=== PATIENT | male | born 1935 | race Caucasian/White ===

== ENCOUNTER 2020-11-06 17:31 | Inpatient (IN) | payer MEDICARE, BC ==
[2020-11-06] MEDS ORDERED: HEPARIN SODIUM,PORCINE 5,000 UNIT/ML 1 ML VIAL IV PRN (17:32)
[2020-11-06] MEDS ORDERED: HEPARIN SOD,PORK IN 0.45% NACL 25,000 UNIT in 0.45% NACL 1 250ML.BAG IV SCH (17:45)
--- NOTE | 2020-11-06 17:56 | ED ---
Chest Pain HPI - General Chief Complaint: Chest Pain Stated Complaint: chest pain Time Seen by Provider: 11/06/20 17:35 Source: patient, EMS, RN notes reviewed Mode of arrival: EMS Limitations: no limitations - History of Present Illness Initial Comments: Patient is an 85-year-old male with past history of CAD, prostate cancer, hypertension, hyperlipidemia who presents to the emergency department as a transfer from [facility]. Patient reports that he had an episode of chest pain and shortness of breath starting last night. States that it kept him awake for approximately 4 hours from 10 PM to 2:30 AM. It was located over the right side of his chest without radiation. He was able to fall asleep. Upon waking the chest pain was gone. He called his primary care physician recommended he come into the emergency department for evaluation. Patient presented to [facility] and it was found that the patient had a troponin of 13.3. He was started on a heparin drip and given an aspirin. He follows with Dr. Cifuentes. The patient reports that he had a normal stress test approximately 1 month ago. He has a history of A. fib and is on Ahlquist. Denies missing any doses of his medications. He denies any current chest pain or shortness of breath. No contraindications to anticoagulation. No other alleviating, precipitating or modifying factors - Related Data Home Medications Medication Instructions Recorded Confirmed lisinopriL [Zestril] 5 mg PO BID 12/17/15 11/06/20 Apixaban [Eliquis] 2.5 mg PO BID 11/06/20 11/06/20 Solifenacin Succinate [Vesicare] 5 mg PO DAILY 11/06/20 11/06/20 Tamsulosin HCl [Flomax] 0.4 mg PO DAILY 11/06/20 11/06/20 Previous Rx's Medication Instructions Recorded Aspirin 81 mg PO DAILY 90 Days #90 chew 11/08/20 Atorvastatin [Lipitor] 80 mg PO HS 90 Days #90 tab 11/08/20 Clopidogrel [Plavix] 75 mg PO DAILY 90 Days #90 tab 11/08/20 atenoloL [Tenormin] 50 mg PO BID 90 Days #180 tab 11/08/20 Allergies Allergy/AdvReac Type Severity Reaction Status Date / Time No Known Allergies Allergy Verified 12/17/15 10:32 Review of Systems ROS Statement: Those systems with pertinent positive or pertinent negative responses have been documented in the HPI. ROS Other: All systems not noted in ROS Statement are negative. EKG Findings - EKG Comments: EKG Findings:: EKG demonstrates normal sinus rhythm with a ventricular rate of 95. NV interval 158. QRS 116. QTC of 469. Left axis deviation. No acute ST segment elevation Past Medical History Past Medical History: Cancer, Chest Pain / Angina, Hyperlipidemia, Hypertension Additional Past Medical History / Comment(s): HX OF PROSTATE CA, HX SKIN CA ON FOREHEAD History of Any Multi-Drug Resistant Organisms: None Reported Past Surgical History: Heart Catheterization With Stent, Joint Replacement, Prostate Surgery Additional Past Surgical History / Comment(s): STENT X2, LEFT KNEE REPLACEMENT, RT/LT EYE CAT SX, RADIATION TO PROSTATE Past Anesthesia/Blood Transfusion Reactions: Postoperative Nausea & Vomiting (PONV) Date of Last Stent Placement:: UNKNOWN Past Psychological History: No Psychological Hx Reported Smoking Status: Former smoker Past Alcohol Use History: Occasional Past Drug Use History: None Reported General Exam Limitations: no limitations General appearance: alert, in no apparent distress Head exam: Present: atraumatic, normocephalic, normal inspection Eye exam: Present: normal appearance, PERRL, EOMI. Absent: scleral icterus, conjunctival injection, periorbital swelling ENT exam: Present: normal exam, mucous membranes moist Neck exam: Present: normal inspection. Absent: tenderness, meningismus, lymphadenopathy Respiratory exam: Present: normal lung sounds bilaterally. Absent: respiratory distress, wheezes, rales, rhonchi, stridor Cardiovascular Exam: Present: regular rate, normal rhythm, normal heart sounds. Absent: systolic murmur, diastolic murmur, rubs, gallop, clicks GI/Abdominal exam: Present: soft, normal bowel sounds. Absent: distended, tenderness, guarding, rebound, rigid Extremities exam: Present: normal inspection, full ROM, normal capillary refill. Absent: tenderness, pedal edema, joint swelling, calf tenderness Back exam: Present: normal inspection Neurological exam: Present: alert, oriented X3, CN II-XII intact Psychiatric exam: Present: normal affect, normal mood Skin exam: Present: warm, dry, intact, normal color. 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 Fernandez. Agreed with heparin, asa. Chest Pain MDM - [facility] Upon arrival patient was placed into room 25. A thorough history and physical exam was performed. 12-lead EKG was obtained. Laboratory studies were conducted. Chest x-ray was uploaded to the patient's chart. I did review the paperwork from the outside facility. Repeat laboratory studies demonstrated trop of 12.7 with a BNP of 3800. I did continue the patient on heparin drip. I called and spoke with Dr. Fernandez who agreed to aspirin and heparin at this time as the patient is asymptomatic. I spoke with Dr. Foster who agreed to admit the patient. He remained pain-free awaiting a bed on the floor Critical Care Time Critical Care Time: Yes Critical Care Time: 32 minutes Disposition Clinical Impression: Acute non-ST elevation myocardial infarction (NSTEMI) Disposition: ADMITTED IP TO THIS [facility] Condition: Serious Is patient prescribed a controlled substance at d/c from ED?: No Decision to Admit Reason: Admit from EC Decision Date: 11/06/20 Decision Time: 17:55
[2020-11-06 18:00] LABS: Basophils % (A) 0 %; Eosinophils # (A) 0.2 k/uL (0-0.7); Eosinophils % (A) 3 %; HCT 36.6 % (39.0-53.0); HGB 12.2 gm/dL (13.0-17.5); Lymphocytes # (A) 1.2 k/uL (1.0-4.8); Lymphocytes % (A) 20 %; MCH 33.5 pg (25.0-35.0); MCHC 33.2 g/dL (31.0-37.0); MCV 100.8 fL (80.0-100.0); Macrocytosis Slight; Mean Platelet Volume 7.9; Monocytes # (A) 0.5 k/uL (0-1.0); Monocytes % (A) 9 %; Neutrophils # (A) 3.9 k/uL (1.3-7.7); Neutrophils % (A) 66 %; Platelet Count 194 k/uL (150-450); RBC 3.63 m/uL (4.30-5.90); RDW 13.1 % (11.5-15.5); WBC 5.9 k/uL (3.8-10.6)
[2020-11-06] MEDS ORDERED: NALOXONE 0.4 MG/ML 1 ML VIAL IV PRN (18:04)
[2020-11-06 18:08] LABS: Albumin 4.5 g/dL (3.5-5.0); Calcium 9.8 mg/dL (8.4-10.2); Potassium 4.5 mmol/L (3.5-5.1); Total Bilirubin 0.6 mg/dL (0.2-1.3); Total Protein 7.5 g/dL (6.3-8.2)
[2020-11-06 18:12] LABS: Prothrombin Time 10.5 sec (9.0-12.0)
[2020-11-06 18:20] LABS: Partial Thromboplastin Time 73.9 sec (22.0-30.0)
[2020-11-06] MEDS ORDERED: HYDROcodone/APAP 5-325MG 1 EACH TAB PO PRN (19:16)
--- NOTE | 2020-11-06 20:35 | HP ---
HISTORY AND PHYSICAL DATE OF SERVICE: 11/06/2020 CHIEF COMPLAINT: Chest pain. HISTORY OF PRESENT ILLNESS: This 85-year-old gentleman with a past medical history of multiple medical problems, including history of chest pain, history of hypertension, hyperlipidemia, history of prostate cancer, history of CAD and stent in 2005, being followed by Dr. Donato Chapman and Dr. Cifuentes in the outpatient setting, was complaining of chest pain which started from 10 p.m. to 2:30 a.m. yesterday, about 4 hours. The patient went to [facility]. The patient had a troponin about 13.3 and the patient was started on a heparin drip and aspirin was given. The patient was transferred to [facility] for further evaluation and treatment. Currently the patient does not have much chest pain. Patient has a history of atrial fibrillation and is on Eliquis, also. There is no history of fever, rigors, chills at this time. The current labs in [facility] show WBC 5.2, hemoglobin 12.2 and troponin was found to be 12.700. COVID- 19 was negative. The patient is admitted for further evaluation and treatment. The EKG showed some non-progression of R-wave in the anterior leads at this time. There is no ST-segment elevation at this time. There is no history of any fever, rigors or chills. PAST MEDICAL HISTORY: History of chest pain, history of hypertension, hyperlipidemia, history of CAD and stent. HOME MEDICATIONS: Zestril, Flomax, VESIcare, Mevacor, Eliquis, Tenormin. ALLERGIES: NONE. FAMILY HISTORY: No history of heart disease or strokes in the family. SOCIAL HISTORY: About 60 pack-years of smoking. Occasional alcohol intake. REVIEW OF SYSTEMS: ENT: Diminished hearing. Diminished vision. CARDIOVASCULAR SYSTEM: As mentioned earlier. RESPIRATORY SYSTEM: As mentioned earlier. GI: No nausea, vomiting, diarrhea. : No dysuria or retention. NERVOUS SYSTEM: No numbness, weakness. ALLERGY/IMMUNOLOGY: No asthma, hayfever. MUSCULOSKELETAL: As mentioned earlier. HEMATOLOGY/ONCOLOGY: History of prostate cancer. CONSTITUTIONAL: As mentioned earlier. DERMATOLOGY: Negative. RHEUMATOLOGY: Negative. PSYCHIATRY: Negative. PHYSICAL EXAMINATION: Patient is alert, oriented x3. The pulse is 96, blood pressure 157/94, respiration 18, temperature 97.7, pulse ox 97% on room air. HEENT: Conjunctivae normal. NECK: No jugular venous distention. CARDIOVASCULAR SYSTEM: S1, S2 muffled. No S3. No S4. RESPIRATORY SYSTEM: Breath sounds diminished at the bases. No rhonchi. No crackles. ABDOMEN: Soft, obese, non-tender. No mass palpable. LEGS: No edema. No swelling. NERVOUS SYSTEM: Higher functions as mentioned earlier. Moves all 4 limbs. No focal motor or sensory deficit. LYMPHATICS: No lymph node palpable in neck, axillae or groin. SKIN: No ulcer, rash, bleeding. JOINTS: No active deforming arthropathy. LABS: WBC 5.9, hemoglobin 12.2 and MCV 100.8. APTT was 73.9. Troponins of 12.70. ASSESSMENT: 1. Chest pain, possible acute laf-VW-cmpsetu-elevation myocardial infarction with troponin 12.700. 2. Elevated AST. 3. Heparin monitoring. 4. Anemia, macrocytic. 5. History of coronary artery disease, stent. 6. Hypertension. 7. Hyperlipidemia. 8. History of prostate cancer. 9. History of skin cancer. 10.History of degenerative joint disease. 11.Remote history of nicotine dependence. 12.Obesity with body mass index of 38. 13.FULL CODE. RECOMMENDATIONS AND DISCUSSION: In this 85-year-old gentleman who presented with multiple complex medical issues, we will monitor the patient closely. I would recommend continuing with IV heparin. Cardiology consultation. Possible cardiac catheterization. Resume the home medications. Beta blockers. Antiplatelet agents. Prognosis is guarded because of multiple complex medical issues. Further recommendations to follow. A copy of this dictation is being forwarded to Dr. Donato Chapman, who is the primary physician. MMODL / IJN: [id number] /
[2020-11-06] MEDS: ALPRAZolam 0.25 MG TAB PO PRN (21:24)
[2020-11-06] MEDS: atenoloL 25 MG TAB PO SCH (21:24)
[2020-11-06] MEDS: lisinopriL 5 MG TAB PO SCH (21:24)
[2020-11-06] MEDS: ATORVASTATIN 80 MG TAB PO SCH (21:24)
[2020-11-06 22:27] LABS: Appearance,Urine Clear (Clear); Bilirubin,Urine Negative (Negative); Blood,Urine Moderate (Negative); Color,Urine Yellow; Glucose,Urine (UA) Negative (Negative); Ketones,Urine Negative (Negative); Leukocyte Esterase,Urine Negative (Negative); Mucus,Urine Rare /hpf; Nitrite,Urine Negative (Negative); Protein,Urine Trace (Negative); RBC,Urine 132 /hpf (0-5); Specific Gravity,Urine 1.022 (1.001-1.035); WBC,Urine 9 /hpf (0-5)
[2020-11-07] MEDS: PANTOPRAZOLE 40 MG TABLET PO SCH (05:50)
[2020-11-07] MEDS ORDERED: ASPIRIN 81 MG PO SCH (09:15)
[2020-11-07 09:18] LABS: Basophils % (A) 0 %; Eosinophils # (A) 0.2 k/uL (0-0.7); Eosinophils % (A) 3 %; HCT 35.4 % (39.0-53.0); HGB 11.7 gm/dL (13.0-17.5); Lymphocytes # (A) 1.1 k/uL (1.0-4.8); Lymphocytes % (A) 21 %; MCH 33.7 pg (25.0-35.0); MCV 102.1 fL (80.0-100.0); Macrocytosis Slight; Mean Platelet Volume 8.1; Monocytes # (A) 0.5 k/uL (0-1.0); Monocytes % (A) 10 %; Neutrophils # (A) 3.3 k/uL (1.3-7.7); Neutrophils % (A) 62 %; Platelet Count 185 k/uL (150-450); RBC 3.47 m/uL (4.30-5.90); RDW 12.9 % (11.5-15.5); WBC 5.3 k/uL (3.8-10.6)
[2020-11-07 09:22] LABS: Calcium 9.3 mg/dL (8.4-10.2); Potassium 4.6 mmol/L (3.5-5.1)
[2020-11-07] MEDS ORDERED: ASPIRIN 325 MG TAB PO STA (09:47)
[2020-11-07] MEDS ORDERED: SODIUM CHLORIDE 0.9% 1,000 ML in EMPTY BAG 1 BAG IV ONE (09:47)
[2020-11-07] MEDS ORDERED: NITROGLYCERIN SL TABS 0.4 MG TAB SUBLINGUAL PRN ×2 (09:47→12:29)
[2020-11-07] MEDS ORDERED: LIDOCAINE 1% INJ 10MG/ML (20 ML MDV) ONE (10:51)
[2020-11-07] MEDS ORDERED: IV FLUID CONTINUATION 1,000 ML IV ONE (11:08)
[2020-11-07] MEDS ORDERED: fentaNYL (PF) 50 MCG/ML 2 ML AMP ONE (11:17)
[2020-11-07] MEDS ORDERED: fentaNYL (PF) 50 MCG/ML 2 ML AMP IV ONE (11:19)
[2020-11-07] MEDS ORDERED: MIDAZOLAM 2 MG/2 ML VIAL IV ONE ×2 (11:20→11:22)
[2020-11-07] MEDS ORDERED: LIDOCAINE 1% INJ 10MG/ML (20 ML MDV) SQ ONE (11:20)
[2020-11-07] MEDS ORDERED: BIVALIRUDIN 250 MG in SODIUM CHLORIDE 0.9% 50 ML IV ONE (11:53)
[2020-11-07] MEDS ORDERED: BIVALIRUDIN BOLUS 250 MG/50 ML IV ONE (11:53)
[2020-11-07] MEDS ORDERED: HYDROmorphone 0.5 MG/0.5 ML SYRINGE IVP ONE (11:54)
[2020-11-07] MEDS ORDERED: IOPAMIDOL-370 125ML BTL INJ ONE (12:06)
[2020-11-07] MEDS ORDERED: CLOPIDOGREL 75 MG TAB ONE (12:08)
[2020-11-07] MEDS ORDERED: NITROGLYCERIN 1000MCG/10ML SYRINGE INTRACORON ONE (12:10)
[2020-11-07] MEDS ORDERED: CLOPIDOGREL 75 MG TAB PO ONE (12:10)
--- NOTE | 2020-11-07 12:17 | CC ---
CARDIAC CATHETERIZATION REPORT INDICATION: Acute non ST-segment elevation ND. PROCEDURE NOTE: After obtaining informed consent, left heart catheterization, coronary angiogram are performed via the right femoral artery using standard Daniela catheters. The patient tolerated the procedure well without any obvious immediate complications. Patient received moderate conscious sedation and total sedation time was 16 minutes. FINDINGS: 1. HEMODYNAMICS: Left ventricular end-diastolic pressure is 20 mm. There is no significant gradient across the aortic valve. 2. LEFT VENTRICULOGRAM: Left ventriculogram is not performed. 3. ANGIOGRAPHIC DATA: Left Main Coronary Artery: Left main coronary artery appears calcified but is free of stenosis. Divides into left anterior descending coronary artery and circumflex coronary artery. LAD and its branches are free of significant stenosis. Circumflex coronary artery is a nondominant vessel. It gives off a large caliber OM branch. In the ostial portion of circumflex, there is a 70% to 80% stenosis. Right coronary artery is a large dominant vessel that was previously stented. The stent extends in the mid RCA. There is an in-stent restenosis within the mid RCA, which is an eccentric lesion and at its worst seems to be 80% stenosis. CONCLUSIONS: An 80% in-stent restenosis of the right coronary artery. PLAN: Angiographic data was reviewed by Dr. Little Rivera the on-call lottery office manager who will proceed with angioplasty of the right coronary artery. I explained to the patient. He understands and is in agreement with the plan. MMODL / IJN: [id number] /
[2020-11-07] MEDS ORDERED: IOPAMIDOL-370 100ML BTL INJ ONE (12:18)
--- NOTE | 2020-11-07 12:28 | P.CRDCN ---
History of Present Illness History of present illness: HISTORY OF PRESENTING ILLNESS This is a pleasant 85-year-old male past medical history significant for persistent atrial fibrillation (diagnosed in June 2020 started on E liquis) , coronary artery disease status post PCI with stent placement in the mid RCA and posterior left ventricular branch the distal RCA in 2002, hypertension, hyperlipidemia. He follows in the office with Dr. Cifuentes. We have been asked to see in consultation for chest pain. Patient is seen and examined That side. Patient sitting up in chair, in no acute distress. Patient stated chest pain started at 10 PM Wednesday night, patient see out to the bathroom and felt short of breath. He rates his pain 4 out of 10, describes dull right sided chest pain, non-radiating but felt pain in right axilla. Pain lasted about 6 hours, and was relieved. Patient went to bed and in the morning called his PCP who told him to go to the emergency department. Patient presented to [facility], troponin 13.3, patient was given 325 mg aspirin, started on a heparin drip and transferred to [facility] . Associated symptoms include shortness of breath. Patient denies palpitations, lower extremity edema, fatigue, weakness, lightheadedness, syncope. At this time patient does not endorse any chest pain or shortness of breath . Patient denies history of Diabetes, Stroke, FL, or Heart failure. Patients states he compliant with medication. Former smoker quit in 1984. Denies ETOH or illicit drug use. Laboratory data reviewed, troponin trend 13.3 (at [facility])-->12.7-->11.2-->10.2, Vital signs blood pressure 114/63, heart rate 70, SpO2 97% on room air, afebrile DIAGNOSTICS EKG reveals sinus rhythm, HR 95, T wave flattening V1, V2. left axis deviation, slow R wave progression EKG [facility]- not available in chart when reviewed. Prior EKG in 06/2020 - atrial fibrillation Stress test in 09/25/20 was negative for ischemia, left ventricular EF is 42% Most recent echo 08/05/20: EF 50-55%, mild mitral regurgitation, mild tricuspid regurgitation Last Cardiac Catheterization 2002 as detailed above Current home cardiac medications include lisinopril 5 mg twice a day, Eliquis 2.5 mg twice a day, atenolol 25 mg twice a day, lovastatin 10 mg daily REVIEW OF SYSTEMS At the time of my exam: CONSTITUTIONAL: Denies fever or chills. CARDIOVASCULAR: +chest pain + shortness breath per HPI Denies orthopnea, PND or palpitations. RESPIRATORY: Denies cough. GASTROINTESTINAL: Denies abdominal pain, diarrhea, constipation, nausea or vomiting. MUSCULOSKELETAL: Denies myalgias. NEUROLOGIC: Denies numbness, tingling, headache or weakness. ENDOCRINE: Denies fatigue, weight change, polydipsia or polyurina. GENITOURINARY: Denies burning, hematuria or urgency with micturation. HEMATOLOGIC: Denies history of anemia or bleeding. PHYSICAL EXAMINATION CONSTITUTIONAL: No apparent distress. HEENT: Head is normocephalic. Pupils are equal, round. Sclerae anicteric. Mucous membranes of the mouth are moist. No JVD. No carotid bruit. CHEST EXAMINATION: Lungs are clear to auscultation. No chest wall tenderness is noted on palpation or with deep breathing. HEART EXAMINATION: Regular rate and rhythm. S1, S2 heard. No murmurs, gallops or rub. ABDOMEN: Soft, nontender. Positive bowel sounds. EXTREMITIES: 2+ peripheral pulses, no lower extremity edema and no calf tenderness. NEUROLOGIC EXAMINATION: Patient is awake, alert and oriented x3. ASSESSMENT -Unstable angina -NSTEMI -Coronary Artery Disease status post PCI with stent placement in the mid RCA and posterior left ventricular branch the distal RCA in 2002 -History of Hypertension -History of hyperlipidemia -Persistent atrial fibrillation PLAN -Plan for cardiac catheterization with Dr. Cifuentes today. -ASA 325mg ordered -Heparin drip held for procedure -NTG SL PRN -Will continue ASA 81mg daily, atenolol 25mg BID, atorvastatin 80mg nightly, lisinopril 5mg BID Nurse Practitioner note has been reviewed, I agree with a documented findings and plan of care. Patient was seen and examined. Past Medical History Past Medical History: Cancer, Chest Pain / Angina, Hyperlipidemia, Hypertension Additional Past Medical History / Comment(s): HX OF PROSTATE CA, HX SKIN CA ON FOREHEAD History of Any Multi-Drug Resistant Organisms: None Reported Past Surgical History: Heart Catheterization With Stent, Joint Replacement, Prostate Surgery Additional Past Surgical History / Comment(s): STENT X2, LEFT KNEE REPLACEMENT, RT/LT EYE CAT SX, RADIATION TO PROSTATE Past Anesthesia/Blood Transfusion Reactions: Postoperative Nausea & Vomiting (PONV) Date of Last Stent Placement:: UNKNOWN Past Psychological History: No Psychological Hx Reported Smoking Status: Former smoker Past Alcohol Use History: Occasional Past Drug Use History: None Reported Medications and Allergies Home Medications Medication Instructions Recorded Confirmed Type atenoloL [Tenormin] 25 mg PO BID 12/17/15 11/06/20 History lisinopriL [Zestril] 5 mg PO BID 12/17/15 11/06/20 History Apixaban [Eliquis] 2.5 mg PO BID 11/06/20 11/06/20 History Lovastatin [Mevacor] 10 mg PO DAILY 11/06/20 11/06/20 History Solifenacin Succinate [Vesicare] 5 mg PO DAILY 11/06/20 11/06/20 History Tamsulosin HCl [Flomax] 0.4 mg PO DAILY 11/06/20 11/06/20 History Allergies Allergy/AdvReac Type Severity Reaction Status Date / Time No Known Allergies Allergy Verified 12/17/15 10:32 Physical Exam Vitals: Vital Signs Temp Pulse Pulse Resp BP BP Pulse Ox 11/07/20 03:41 97.4 F L 75 16 114/63 97 11/07/20 01:50 16 11/06/20 23:45 97.8 F 78 16 130/77 97 11/06/20 21:13 16 11/06/20 21:12 98.1 F 98 16 143/67 96 11/06/20 18:02 97 11/06/20 17:32 97.7 F 96 18 157/94 97 Intake and Output 11/06/20 11/07/20 11/07/20 22:59 06:59 14:59 Intake Total 1.829 60.531 Output Total 400 Balance -398.171 60.531 Intake: Intake, IV Titration 1.829 60.531 Amount Heparin Sod,Pork in 0.45% 1.829 60.531 NaCl 25,000 unit In 0.45 % NaCl 1 250ml.bag @ 8.8 UNITS/KG/HR 9.979 mls/hr IV .Q24H [facility] Rx#: [id number] Output: Urine 400 Other: Voiding Method Toilet Toilet # Voids 1 2 # Bowel Movements 1 Weight 113.398 kg 116.6 kg Results 11/07/20 08:26 11/07/20 08:26 Cardiac Enzymes 11/06/20 11/06/20 11/06/20 Range/Units 17:50 17:50 20:27 AST 104 H (17-59) U/L Troponin I 12.700 H* 11.200 H* (0.000-0.034) ng/mL 11/07/20 Range/Units 00:12 AST (17-59) U/L Troponin I 10.200 H* (0.000-0.034) ng/mL Coagulation 11/06/20 11/07/20 Range/Units 17:50 01:11 PT 10.5 (9.0-12.0) sec APTT 73.9 H 39.7 H (22.0-30.0) sec CBC 11/06/20 Range/Units 17:50 WBC 5.9 (3.8-10.6) k/uL RBC 3.63 L (4.30-5.90) m/uL Hgb 12.2 L (13.0-17.5) gm/dL Hct 36.6 L (39.0-53.0) % Plt Count 194 (150-450) k/uL Comprehensive Metabolic Panel 11/06/20 Range/Units 17:50 Sodium 137 (137-145) mmol/L Potassium 4.5 (3.5-5.1) mmol/L Chloride 101 (98-107) mmol/L Carbon Dioxide 25 (22-30) mmol/L BUN 27 H (9-20) mg/dL Creatinine 1.09 (0.66-1.25) mg/dL Glucose 151 H (74-99) mg/dL Calcium 9.8 (8.4-10.2) mg/dL AST 104 H (17-59) U/L ALT 30 (4-49) U/L Alkaline Phosphatase 78 (38-126) U/L Total Protein 7.5 (6.3-8.2) g/dL Albumin 4.5 (3.5-5.0) g/dL Current Medications Generic Name Dose Route Start Last Admin Trade Name Freq PRN Reason Stop Dose Admin Hydrocodone Bitart/Acetaminophen 1 each 11/06/20 19:16 Hydrocodone/Apap 5-325mg 1 Each Tab PO Q6HR PRN Pain Alprazolam 0.25 mg 11/06/20 19:16 11/06/20 21:24 Alprazolam 0.25 Mg Tab PO 0.25 mg TID PRN Administration Anxiety Atenolol 25 mg 11/06/20 21:00 11/06/20 21:24 Atenolol 25 Mg Tab PO 25 mg BID CHRIS Administration Atorvastatin Calcium 80 mg 11/06/20 21:00 11/06/20 21:24 Atorvastatin 80 Mg Tab PO 80 mg HS CHRIS Administration Heparin Sodium (Porcine) 0 unit 11/06/20 17:32 Heparin Sodium,Porcine 5,000 Unit/Ml 1 Ml Vial IV PER PROTOCOL PRN Low PTT Protocol Heparin Sodium/Sodium Chloride 250 mls @ 9.979 mls/hr 11/06/20 17:45 11/07/20 02:15 25,000 unit/ Sodium Chloride IV 8.8 units/kg/hr .Q24H CHRIS 9.979 mls/hr Titration Protocol 8.8 UNITS/KG/HR Lisinopril 5 mg 11/06/20 21:00 11/06/20 21:24 Lisinopril 5 Mg Tab PO 5 mg BID CHRIS Administration Multivitamins 1 each 11/07/20 12:00 Multivitamins, Thera 1 Each Tab PO DAILY@1200 [facility] Naloxone HCl 0.2 mg 11/06/20 18:04 Naloxone 0.4 Mg/Ml 1 Ml Vial IV Q2M PRN Opioid Reversal Pantoprazole Sodium 40 mg 11/07/20 07:30 11/07/20 05:50 Pantoprazole 40 Mg Tablet PO Not Given AC-BRKFST [facility] Tamsulosin HCl 0.4 mg 11/07/20 09:00 Tamsulosin 0.4 Mg Cap.Er.24h PO DAILY [facility] Trospium 20 mg 11/07/20 09:00 Trospium Chloride 20 Mg Tablet PO DAILY [facility] Intake and Output 11/06/20 11/07/20 11/07/20 22:59 06:59 14:59 Intake Total 1.829 60.531 Output Total 400 Balance -398.171 60.531 Intake: Intake, IV Titration 1.829 60.531 Amount Heparin Sod,Pork in 0.45% 1.829 60.531 NaCl 25,000 unit In 0.45 % NaCl 1 250ml.bag @ 8.8 UNITS/KG/HR 9.979 mls/hr IV .Q24H [facility] Rx#: [id number] Output: Urine 400 Other: Voiding Method Toilet Toilet # Voids 1 2 # Bowel Movements 1 Weight 113.398 kg 116.6 kg 11/06/20 17:50 11/06/20 17:50
[2020-11-07] MEDS ORDERED: ZOLPIDEM 5 MG TAB PO PRN (12:29)
[2020-11-07] MEDS ORDERED: ATROPINE SULFATE 0.1 MG/ML 10ML SYRINGE IV PRN (12:29)
[2020-11-07] MEDS ORDERED: RX INFO: IV CONTRAST WAS GIVEN 1 EACH MISC MISCELLANE PRN (12:29)
[2020-11-07] MEDS ORDERED: MAG HYDROX/AL HYDROX/SIMETH 30 ML CUP PO PRN (12:29)
--- NOTE | 2020-11-07 13:38 | PTCA ---
PERCUTANEOUSTRANS CORORONARY ANGIOGRAPHY DATE OF SERVICE: 11/07/2020 PROCEDURE: PTCA and stenting of proximal right coronary artery with in-stent restenotic lesion with a drug-eluting stent. PERFORMED BY: Dr. Little Rivera. Moderate conscious sedation time was 32 minutes. The patient was administered Versed and Dilaudid. Oxygen saturation, hemodynamics and EKG were monitored closely. CLINICAL INFORMATION: Mr. Candelario Parrish is a 85-year-old gentleman who presented with a non-ST elevation ND and troponin of more than 10.0 with chest pain suggestive of angina. The patient was seen and evaluated by Dr. Cifuentes and cardiac cath revealed that his previously stented RCA in the distal aspect had a 90% stenosis very eccentric in nature best seen in the RUIZ cranial projection image #12, RUIZ 31 degree cranial 17 degrees. He was advised intervention that was performed in the same setting. PCI PROCEDURE DETAILS: The existing 6-Spanish introducer in the right femoral artery was used to perform the procedure. A standard right Daniela guide catheter was used to cannulate the right coronary artery. The patient was given Angiomax bolus and infusion as per protocol. The run-through wire was used to cross the lesion. Predilatation was performed with a 2.5 caliber 12 mm NC Trek balloon. I then deployed a 3.5 caliber 23 mm long Xience stent and the distal aspect of the stent covered the lesion very well and the proximal aspect also telescoped into another proximal stented segment as well. The patient did not have significant symptoms, but had ST elevation involving the inferior leads. Excellent angiographic result without complication was achieved. The sheath was taken out and an Angio-Seal device used to secure hemostasis. The details were discussed with the patient and his son. I expect he will be discharged the next 36 to 48 hours. A copy of this note will go to his primary care physician, Dr. Chapman. MMODL / IJN: [id number] /
[2020-11-07 14:16] VITALS: BMI 39.0
--- NOTE | 2020-11-07 15:45 | PN ---
PROGRESS NOTE DATE OF SERVICE: 11/07/2020 This 85-year-old gentleman admitted with chest pain, acute non-ST segment elevation myocardial infarction, underwent cardiac catheterization and as well as PTCA and stenting of the proximal RCA for in-stent restenosis with a drug-eluting stent by Dr. Little Rivera. No chest pain. No palpitations. No fever. PHYSICAL EXAMINATION: Alert and oriented x3. Pulse is 84, blood pressure 103/62, respirations 16, temperature normal, pulse ox 94% on room air. HEENT: Conjunctivae normal. NECK: No jugular venous distention. CARDIOVASCULAR: S1, S2 muffled. RESPIRATORY: Breath sounds diminished at the bases. No rhonchi, no crackles. ABDOMEN: Soft, nontender, obese. LEGS: No edema, no swelling. NERVOUS SYSTEM: No focal deficits. LABS: WBC 5.3, hemoglobin 7.7, APTT noted. Troponin noted. UA noted. ASSESSMENT: 1. Chest pain with acute ort-HH-[id number]-elevation myocardial infarction with troponin 12.7, status post cardiac catheterization and PTCA and stenting of the proximal RCA with in-stent restenosis. 2. Elevated AST. 3. Heparin monitoring. 4. Anemia macrocytic. 5. History of coronary artery disease, stent. 6. Hypertension. 7. Hyperlipidemia. 8. History of prostate cancer. 9. History of skin cancer. 10.History of degenerative joint disease. 11.Remote history of nicotine dependence. 12.Obesity with body mass index of 38. 13.FULL CODE. RECOMMENDATIONS AND DISCUSSION: Recommend to continue current medications, continue symptomatic treatment. Otherwise continue with dual antiplatelet treatment. Continue the Lipitor. Continue the rest of the medications. Continue with beta blockers. Prognosis guarded because of multiple complex medical issues. Further recommendations to follow. Atenolol dose has been increased. See orders for further details. MMODL / IJN: [id number] /
[2020-11-07] MEDS: lisinopriL 5 MG TAB PO SCH ×2 (16:40→20:02)
[2020-11-07] MEDS: SODIUM CHLORIDE 0.9% 1,000 ML IV SCH (16:41)
[2020-11-07] MEDS: MULTIVITAMINS, THERA 1 EACH TAB PO SCH (16:50)
[2020-11-07] MEDS: TROSPIUM CHLORIDE 20 MG TABLET PO SCH (16:50)
[2020-11-07] MEDS: TAMSULOSIN 0.4 MG CAP.ER.24H PO SCH (16:50)
[2020-11-07] MEDS: ATORVASTATIN 80 MG TAB PO SCH (20:02)
[2020-11-07] MEDS: atenoloL 50 MG TAB PO SCH (20:02)
[2020-11-07] MEDS: ALPRAZolam 0.25 MG TAB PO PRN (23:51)
[2020-11-08] MEDS: SODIUM CHLORIDE 0.9% 1,000 ML IV SCH (05:39)
[2020-11-08] MEDS: PANTOPRAZOLE 40 MG TABLET PO SCH (06:11)
[2020-11-08] MEDS ORDERED: HEPARIN SODIUM,PORCINE 2,500 UNIT in SODIUM CHLORIDE 0.9% 250 ML IRRIGATION PRN (07:00)
[2020-11-08] MEDS ORDERED: HEPARIN SODIUM,PORCINE 10,000 UNIT in SODIUM CHLORIDE 0.9% 1,000 ML IRRIGATION PRN (07:00)
[2020-11-08 08:18] LABS: Basophils % (A) 0 %; Eosinophils # (A) 0.1 k/uL (0-0.7); Eosinophils % (A) 1 %; HCT 34.8 % (39.0-53.0); HGB 11.9 gm/dL (13.0-17.5); Lymphocytes # (A) 0.7 k/uL (1.0-4.8); Lymphocytes % (A) 8 %; MCH 35.1 pg (25.0-35.0); MCV 103.1 fL (80.0-100.0); Macrocytosis Slight; Mean Platelet Volume 8.3; Monocytes # (A) 0.7 k/uL (0-1.0); Monocytes % (A) 8 %; Neutrophils % (A) 82 %; Platelet Count 167 k/uL (150-450); RBC 3.38 m/uL (4.30-5.90); RDW 12.5 % (11.5-15.5); WBC 8.6 k/uL (3.8-10.6)
[2020-11-08 08:50] LABS: Calcium 9.1 mg/dL (8.4-10.2); Potassium 4.9 mmol/L (3.5-5.1)
[2020-11-08] MEDS: atenoloL 50 MG TAB PO SCH (09:12)
[2020-11-08] MEDS: TAMSULOSIN 0.4 MG CAP.ER.24H PO SCH (09:12)
[2020-11-08] MEDS: TROSPIUM CHLORIDE 20 MG TABLET PO SCH (09:12)
[2020-11-08] MEDS: lisinopriL 5 MG TAB PO SCH ×2 (09:12→20:03)
[2020-11-08] MEDS: CLOPIDOGREL 75 MG TAB PO SCH (09:12)
[2020-11-08] MEDS: ASPIRIN 81 MG PO SCH (09:12)
[2020-11-08] MEDS: APIXABAN 2.5 MG TABLET PO SCH ×2 (09:12→20:03)
[2020-11-08] MEDS: atenoloL 25 MG TAB PO SCH (10:09)
[2020-11-08] MEDS: MULTIVITAMINS, THERA 1 EACH TAB PO SCH (12:18)
--- NOTE | 2020-11-08 12:28 | P.PN ---
<Garima Sher - Last Filed: 11/08/20 12:20> Subjective This is a pleasant 85-year-old male past medical history significant for persistent atrial fibrillation (diagnosed in June 2020 started on Eliquis) , coronary artery disease status post PCI with stent placement in the mid RCA and posterior left ventricular branch the distal RCA in 2002, hypertension, hyperlipidemia. He follows in the office with Dr. Cifuentes. We have been asked to see in consultation for chest pain. Patient is seen and examined That side. Patient sitting up in chair, in no acute distress. Patient stated chest pain started at 10 PM Wednesday night, patient see out to the bathroom and felt short of breath. He rates his pain 4 out of 10, describes dull right sided chest pain, non-radiating but felt pain in right axilla. Pain lasted about 6 hours, and was relieved. Patient went to bed and in the morning called his PCP who told him to go to the emergency department. Patient presented to [facility], troponin 13.3, patient was given 325 mg aspirin, started on a heparin drip and transferred to [facility] . Associated symptoms include shortness of breath. Patient denies palpitations, lower extremity edema, fatig ue, weakness, lightheadedness, syncope. At this time patient does not endorse any chest pain or shortness of breath . Patient denies history of Diabetes, Stroke, [place], or Heart failure. Patients states he compliant with medication. Former smoker quit in 1984. Denies ETOH or illicit drug use. 11/07/20: Patient underwent cardiac catheterization with Dr. Cifuentes which revealed - RCA large dominant vessel, that was previous stented. 80% in-stent restenosis within the mid RCA. Stenting of proximal RCA with in-stent restenostic lesion with a drug eluting stent was performed by Dr. Rivera. 11/08/20: Patient seen and examined this morning, feeling well. However, endorses not sleeping well due to the hospital bed being uncomfortable and the hospital being noisy. Patient denies palpitations, lower extremity edema, fatigue, weakness, dizziness, lightheadedness, syncope. EKG reviewed this morning, patient in sinus rhythm HR 78, left axis deviation, slow R wave progression. Telemetry reviewed - Laboratory data reviewed, hemoglobin stable 11.9, WBC 8.6, Plt 167, sodium 136, K 4.9, sCr 1.24 (1.03 yesterday). Patient slightly hypotensive this morning asymptomatic blood pressure 102/53, heart rate 79, SpO2 98% on room air, afebrile Current cardiac medications include aspirin 81mg daily, Plavix 75mg daily, lisinopril 5 mg twice a day, Eliquis 2.5 mg twice a day, atenolol 50 mg twice a day, atorvastatin 80mg nightly. PHYSICAL EXAMINATION CONSTITUTIONAL: No apparent distress. HEENT: Head is normocephalic. Pupils are equal, round. Sclerae anicteric. Mucous membranes of the mouth are moist. No JVD. No carotid bruit. CHEST EXAMINATION: Lungs are clear to auscultation. No chest wall tenderness is noted on palpation or with deep breathing. HEART EXAMINATION: Regular rate and rhythm. S1, S2 heard. No murmurs, gallops or rub. ABDOMEN: Soft, nontender. Positive bowel sounds. EXTREMITIES: 2+ peripheral pulses, no lower extremity edema and no calf tenderness. Right Femoral cath site- clean, dry, no redness/swelling, no bleeding NEUROLOGIC EXAMINATION: Patient is awake, alert and oriented x3. ASSESSMENT -Unstable angina -NSTEMI -Coronary Artery Disease status post PCI with stent placement 11/07/20 -History of Hypertension -History of hyperlipidemia -Persistent atrial fibrillation PLAN -Will follow up with TTE results -Continue dual antiplatelt therapy- Plavix 75mg daily, ASA 81mg daily -Continue lisinopril 5mg BID, atenolol 50mg BID, atorvastatin 80mg nightly, and Eliquis 2.5mg BID -Continue to monitor patient tonight and tomorrow will determine if ok to discharge. Nurse Practitioner note has been reviewed, I agree with a documented findings and plan of care. Patient was seen and examined. Objective - Vital Signs Vital signs: Vital Signs Temp 97.4 F L 11/08/20 04:32 Pulse 87 11/08/20 04:32 Resp 16 11/08/20 04:32 BP 132/58 11/08/20 04:32 Pulse Ox 97 11/08/20 04:32 Intake & Output 11/07/20 11/07/20 11/08/20 06:59 18:59 06:59 Intake Total 60.531 392.35 765 Output Total 400 350 Balance -339.469 392.35 415 Weight 116.6 kg 116.6 kg 117.2 kg Intake: IV 85 Intake, IV Titration 60.531 71.35 525 Amount Heparin Sod,Pork in 0.45% 60.531 71.35 NaCl 25,000 unit In 0.45 % NaCl 1 250ml.bag @ 8.8 UNITS/KG/HR 9.979 mls/hr IV .Q24H [facility] Rx#: [id number] Sodium Chloride 0.9% 1, 525 000 ml @ 75 mls/hr IV . [id number] [facility] Rx#:[id number] Oral 236 240 Output: Urine 400 350 Other: Voiding Method Toilet Toilet Toilet # Voids 2 1 # Bowel Movements 1 1 - Labs CBC & Chem 7: 11/08/20 06:56 11/08/20 06:56 Labs: Abnormal Lab Results - Last 24 Hours (Table) 11/07/20 11/07/20 11/07/20 Range/Units 08:26 08:26 08:26 RBC 3.47 L (4.30-5.90) m/uL Hgb 11.7 L (13.0-17.5) gm/dL Hct 35.4 L (39.0-53.0) % MCV 102.1 H (80.0-100.0) fL APTT 40.6 H (22.0-30.0) sec BUN 24 H (9-20) mg/dL Glucose 133 H (74-99) mg/dL <Tobi Fernandez - Last Filed: 11/08/20 15:44> Objective - Vital Signs Vital signs: Vital Signs Temp 97.6 F 11/08/20 12:00 Pulse 79 11/08/20 12:00 Resp 16 11/08/20 12:00 BP 108/60 11/08/20 12:00 Pulse Ox 99 11/08/20 12:00 Intake & Output 11/07/20 11/08/20 11/08/20 18:59 06:59 18:59 Intake Total 392.35 765 540 Output Total 350 Balance 392.35 415 540 Weight 116.6 kg 117.2 kg Intake: IV 85 50 Intake, IV Titration 71.35 525 Amount Heparin Sod,Pork in 0.45% 71.35 NaCl 25,000 unit In 0.45 % NaCl 1 250ml.bag @ 8.8 UNITS/KG/HR 9.979 mls/hr IV .Q24H [facility] Rx#: [id number] Sodium Chloride 0.9% 1, 525 000 ml @ 75 mls/hr IV . [id number] [facility] Rx#:[id number] Oral 236 240 490 Output: Urine 350 Other: Voiding Method Toilet Toilet Toilet # Voids 1 # Bowel Movements 1 - Labs CBC & Chem 7: 11/08/20 13:25 11/08/20 13:25 Labs: Abnormal Lab Results - Last 24 Hours (Table) 11/08/20 11/08/20 11/08/20 Range/Units 06:56 06:56 13:16 RBC 3.38 L (4.30-5.90) m/uL Hgb 11.9 L (13.0-17.5) gm/dL Hct 34.8 L (39.0-53.0) % MCV 103.1 H (80.0-100.0) fL MCH 35.1 H (25.0-35.0) pg Lymphocytes # 0.7 L (1.0-4.8) k/uL Sodium 136 L (137-145) mmol/L Carbon Dioxide (22-30) mmol/L BUN 30 H (9-20) mg/dL Glucose 107 H (74-99) mg/dL POC Glucose (mg/dL) 152 H (75-99) mg/dL Plasma Lactic Acid Julien (0.7-2.0) mmol/L AST (17-59) U/L Troponin I (0.000-0.034) ng/mL Total Protein (6.3-8.2) g/dL 11/08/20 11/08/20 11/08/20 Range/Units 13:25 13:25 13:25 RBC 3.12 L (4.30-5.90) m/uL Hgb 10.9 L (13.0-17.5) gm/dL Hct 32.2 L (39.0-53.0) % MCV 103.3 H (80.0-100.0) fL MCH (25.0-35.0) pg Lymphocytes # (1.0-4.8) k/uL Sodium 134 L (137-145) mmol/L Carbon Dioxide 21 L (22-30) mmol/L BUN 31 H (9-20) mg/dL Glucose 187 H (74-99) mg/dL POC Glucose (mg/dL) (75-99) mg/dL Plasma Lactic Acid Julien 3.7 H* (0.7-2.0) mmol/L AST 70 H (17-59) U/L Troponin I (0.000-0.034) ng/mL Total Protein 6.2 L (6.3-8.2) g/dL 11/08/20 11/08/20 Range/Units 13:25 15:15 RBC (4.30-5.90) m/uL Hgb (13.0-17.5) gm/dL Hct (39.0-53.0) % MCV (80.0-100.0) fL MCH (25.0-35.0) pg Lymphocytes # (1.0-4.8) k/uL Sodium (137-145) mmol/L Carbon Dioxide (22-30) mmol/L BUN (9-20) mg/dL Glucose (74-99) mg/dL POC Glucose (mg/dL) 192 H (75-99) mg/dL Plasma Lactic Acid Julien (0.7-2.0) mmol/L AST (17-59) U/L Troponin I 4.400 H* (0.000-0.034) ng/mL Total Protein (6.3-8.2) g/dL
--- NOTE | 2020-11-08 13:00 | ECHOF ---
Referral Reason:new chest pain MEASUREMENTS -------- HEIGHT: 165.1 cm WEIGHT: 116.6 kg BP: 116/69 RVIDd: 3.1 cm (< 3.3) IVSd: 1.2 cm (0.6 - 1.1) LVIDd: 5.1 cm (3.9 - 5.3) LVPWd: 1.6 cm (0.6 - 1.1) IVSs: 1.7 cm LVIDs: 3.7 cm LVPWs: 1.7 cm LA Diam: 4.8 cm (2.7 - 3.8) Ao Diam: 3.5 cm (2.0 - 3.7) AV Cusp: 2.2 cm (1.5 - 2.6) LA Diam: 4.3 cm (2.7 - 3.8) MV EXCURSION: 19.783 mm (> 18.000) MV EF SLOPE: 53 mm/s (70 - 150) EPSS: 1.4 cm MV E Brody: 0.67 m/s MV DecT: 269 ms MV A Brody: 0.84 m/s MV E/A Ratio: 0.80 RAP: 5.00 mmHg RVSP: 21.52 mmHg FINDINGS -------- Sinus rhythm. This was a techncally difficult study with suboptimal views, , Lumason utilized for enhancement of im ages. Overall left ventricular systolic function is moderate-severely impaired with, an EF between 30 - 35 %. Anterseptal Hypokinesis Inferior Hypokinesis Lincoln Hypokinesis. The right ventricle is normal in size. The left atrium is moderately dilated. The right atrial size is normal. 5.0mg OF Lumason UTLIZED: 2 OR MORE WALL SEGMENTS NOT VISUALIZED. There is mild aortic valve sclerosis. There is no evidence of aortic regurgitation. Mild mitral regurgitation is present. Mild tricuspid regurgitation present. Right ventricular systolic pressure is normal at < 35 mmHg. The pulmonic valve was not well visualized. The aortic root size is normal. There is no pericardial effusion. CONCLUSIONS -------- 1. This was a techncally difficult study with suboptimal views, , Lumason utilized for enhancement of images. 2. Overall left ventricular systolic function is moderate-severely impaired with, an EF between 30 - 35 %. 3. Anterseptal Hypokinesis 4. Inferior Hypokinesis 5. Lincoln Hypokinesis. 6. The right ventricle is normal in size. 7. The left atrium is moderately dilated. 8. The right atrial size is normal. 9. 5.0mg OF Lumason UTLIZED: 2 OR MORE WALL SEGMENTS NOT VISUALIZED. 10. There is mild aortic valve sclerosis. 11. Mild mitral regurgitation is present. 12. Mild tricuspid regurgitation present. 13. Right ventricular systolic pressure is normal at < 35 mmHg. 14. The pulmonic valve was not well visualized. 15. The aortic root size is normal. 16. There is no pericardial effusion. CUSTOMS COMPLIANCE DIRECTOR: Lucila Le RDCS
[2020-11-08] MEDS ORDERED: SODIUM BICARB 8.4% 50 ML SYR (1 MEQ/ML) ONE (13:14)
[2020-11-08] MEDS ORDERED: EPINEPHrine 10 ML SYRINGE (0.1 MG/ML) ONE (13:14)
[2020-11-08] MEDS ORDERED: ONDANSETRON 4 MG/2 ML VIAL ONE (13:30)
[2020-11-08 13:36] LABS: Glucose,Whole Blood 152 mg/dL (75-99)
[2020-11-08] MEDS ORDERED: METOCLOPRAMIDE 5 MG/ML 2 ML VIAL ONE (13:48)
--- NOTE | 2020-11-08 13:57 | XR ---
EXAMINATION TYPE: XR chest 1V portable DATE OF EXAM: 11/08/2020 COMPARISON: Chest x-ray 11/06/2020 from outside institution HISTORY: CODE BLUE, dyspnea TECHNIQUE: Single frontal view of the chest is obtained. FINDINGS: Lung volumes are low, right hemidiaphragm is elevated. Patchy perihilar densities are note d. Aorta is dense. Cardiac mediastinal silhouette shows a similar appearance accounting for rotation. No evident pneumothorax. There is thickening along the lateral pleural margins. IMPRESSION: Rotated exam, expiratory phase. Heart appears enlarged at least in part due to rotation. Difficult to exclude effusion. Persistent elevation of right hemidiaphragm. Difficult to exclude pne umonia, edema
[2020-11-08] MEDS ORDERED: HEPARIN SODIUM 1,000 UN/ML (10ML VL) ONE (14:00)
[2020-11-08] MEDS ORDERED: LIDOCAINE 1% INJ 10MG/ML (20 ML MDV) ONE (14:00)
[2020-11-08] MEDS ORDERED: VERAPAMIL 2.5 MG/ML 2 ML AMP ONE (14:00)
[2020-11-08 14:16] LABS: Basophils % (A) 0 %; Eosinophils # (A) 0.1 k/uL (0-0.7); Eosinophils % (A) 1 %; HCT 32.2 % (39.0-53.0); HGB 10.9 gm/dL (13.0-17.5); Lymphocytes # (A) 1.8 k/uL (1.0-4.8); Lymphocytes % (A) 21 %; MCHC 33.9 g/dL (31.0-37.0); MCV 103.3 fL (80.0-100.0); Macrocytosis Slight; Mean Platelet Volume 8.5; Monocytes # (A) 0.8 k/uL (0-1.0); Monocytes % (A) 9 %; Neutrophils # (A) 5.7 k/uL (1.3-7.7); Neutrophils % (A) 66 %; Platelet Count 168 k/uL (150-450); RBC 3.12 m/uL (4.30-5.90); RDW 12.5 % (11.5-15.5); WBC 8.5 k/uL (3.8-10.6)
[2020-11-08] MEDS ORDERED: IV FLUID CONTINUATION 500 ML IV ONE (14:16)
[2020-11-08] MEDS ORDERED: LIDOCAINE 1% INJ 10MG/ML (20 ML MDV) SQ ONE (14:24)
[2020-11-08 14:30] LABS: Albumin 3.7 g/dL (3.5-5.0); Calcium 8.4 mg/dL (8.4-10.2); Magnesium 1.9 mg/dL (1.6-2.3); Potassium 4.4 mmol/L (3.5-5.1); Total Bilirubin 0.7 mg/dL (0.2-1.3); Total Protein 6.2 g/dL (6.3-8.2)
[2020-11-08] MEDS ORDERED: HEPARIN SODIUM 1,000 UN/ML (10ML VL) IV ONE (14:31)
[2020-11-08] MEDS ORDERED: fentaNYL (PF) 50 MCG/ML 2 ML AMP ONE (14:35)
[2020-11-08 14:37] LABS: Prothrombin Time 10.7 sec (9.0-12.0)
[2020-11-08] MEDS ORDERED: fentaNYL (PF) 50 MCG/ML 2 ML AMP IV ONE (14:37)
[2020-11-08] MEDS ORDERED: IOPAMIDOL-370 125ML BTL INJ ONE (14:41)
--- NOTE | 2020-11-08 14:51 | P.EN ---
Code Blue note: Arrived to room: patient unresponsive and CPR in progress. Events Prior: Walking back from bathroom, with decreased responsiveness noted to be sinus abbi at 20s by tele. Guevara and unresponsive. Noted to have some tremulous activity by aid. Code Events: Asked nursing to give epi as patient being hooked up to monitor, 2 mins of CPR was in progress as patient being to fight being bagged. + pulses with sinus rhythm at 95 on the monitor. Patient moaning. BP 158/98. Attempted to obtain an EKG but patient began having emesis. One stated no intubation. Patient slow became more awake. Dr. Fernandez paged and came to bedside. EKG obtained. Dr. Fernandez spoke with family, decision was to proceed to cath lab technologist. Patient became more awake, alert to being in the hospital, following commands. CXR reviewed no PTX, no overt heart failure, labs ordered- cbc, cmp, mg, lactic acid, and troponin. Due to persistent vomiting zofran and then reglan given. Patient had emesis again in the hallway on the way to cath lab technologist, ordered given to place NGT to LIS on arrival to cath lab technologist. Dr. Varela notified and patient will be transferred to ICU after cath lab technologist. Nursing updated admitting service ACCOUNTING INSTRUCTOR. DX; cardiac arrest A total of 40 minutes of time spent in the critical care of this patient.
[2020-11-08 15:16] LABS: Glucose,Whole Blood 192 mg/dL (75-99)
[2020-11-08] MEDS ORDERED: SODIUM CHLORIDE 0.9% 1,000 ML IV SCH (15:45)
[2020-11-08 15:48] LABS: ABG Base Excess -0.3 mmol/L; ABG HCO3 26 mmol/L (21-25); ABG Oxygen Saturation 48.3 % (94-97); ABG PCO2 48 mmHg (35-45); ABG PH 7.34 (7.35-7.45); ABG TCO2 27 mmol/L (19-24); Allen Test Performed? Yes
--- NOTE | 2020-11-08 15:52 | P.CNPUL ---
History of Present Illness Consult date: 11/08/20 Chief complaint: Cardiac arrest/unresponsiveness History of present illness: This is an 85-year-old male patient got transferred to the intensive care unit after a cardiac event requiring another cardiac catheterization that was done this afternoon following that the patient was brought into the intensive care unit. The patient is known to have coronary artery disease. He was Hospital as forany period he was taken to the cardiac catheterization lab yesterday he underwent a cardiac catheterization and he ended up having stenting of the RCA. Note that he also had disease involving the circumflex in the order of 70-80%. The right coronary artery was thought to be dominant and it was thought to be the culprit and based on that a stent was inserted in the mid RCA reducing and the lesion from 80% to 0%. The patient was in the medical floor and he acutely became unresponsive and CPR was initiated. I reviewed the code records. Appar ently the patient was walking back from the bathroom and he became unresponsive and he had sinus bradycardia with a heart rate in the low 20s. He was currie and unresponsive. He received 2 rounds of CPR and he was given epinephrine and CPR was initiated and was given to her for a total of 2 minutes and subsequently there was recurrence within circulation and the patient regained back his consciousness. His blood pressure came at 158/98. The patient began having some emesis. He required no intubation. The patient was noted to have a 3.2 second part. Based on all this events, the patient underwent another cardiac catheterization and this was done by Dr. Fernandez and the cardiac catheteriz ation revealed a patent RCA stent. No intervention was done and the patient was brought back to the intensive care unit. Echocardiogram that was done yesterday showed impairment of the LV function and the patient an ejection fraction of 30- 35% in addition to anteroseptal and inferior hypokinesis and apical hypokinesis. RV was within normal limits. No other significant valvular abnormalities. I was told by Dr. Fernandez that the filling pressure with elevated and has lived ventricular end-diastolic pressure was at around 30. His chest x-ray that was done earlier this morning showed cardiomegaly with some mild pulmonary vascular congestion. No airspace disease. No effusions. The right hemidiaphragm was slightly elevated. The patient was in the intensive care unit. The patient was awake and alert. The patient was hemodynamically stable. He was feeling any chest pain. The second cardiac catheterization was done through the right radial. The feet are cold and the pulses were diminished in lower extremities bilaterally. His creatinine was up to 1.23 from this morning and the rest of the blood work and electrodes were within normal limits. His lactic acid level was at 3.7 and the patient is currently on aspirin 325 mg by mouth daily, Plavix 75 mg by mouth daily, Eliquis 2.5 mg by mouth twice a day and he is awake. Is following commands. No focal neurological deficits. He is obese. Denies having any chronic lung disease. No asthma. No emphysema. No obstructive sleep apnea although he does have some features otherwise. His cardiac rhythm is sinus. He has had previous history of atrial fibrillation. No seizure activity. No history of any CVA. Review of Systems The patient is sedated. He is arousable. A full review of systems cannot be done at this point in time. He has by limited examination, the patient denied having any chest pain. He was moving all 4 extremities without any limitation. He was able to converse. No facial asymmetry. No seizure activity has been noted. No loss in the bilateral bladder control. No shortness of breath. No cough or sputum production. No angina for now. Past Medical History Past Medical History: Coronary Artery Disease (CAD), Cancer, Chest Pain / Angina, Hyperlipidemia, Hypertension Additional Past Medical History / Comment(s): HX OF PROSTATE CA, HX SKIN CA ON FOREHEAD History of Any Multi-Drug Resistant Organisms: None Reported Past Surgical History: Heart Catheterization With Stent, Joint Replacement, Prostate Surgery Additional Past Surgical History / Comment(s): STENT X2, LEFT KNEE REPLACEMENT, RT/LT EYE CAT SX, RADIATION TO PROSTATE Past Anesthesia/Blood Transfusion Reactions: Postoperative Nausea & Vomiting (PONV) Date of Last Stent Placement:: UNKNOWN Past Psychological History: No Psychological Hx Reported Smoking Status: Former smoker Past Alcohol Use History: Occasional Past Drug Use History: None Reported Medications and Allergies Home Medications Medication Instructions Recorded Confirmed Type lisinopriL [Zestril] 5 mg PO BID 12/17/15 11/06/20 History Apixaban [Eliquis] 2.5 mg PO BID 11/06/20 11/06/20 History Solifenacin Succinate [Vesicare] 5 mg PO DAILY 11/06/20 11/06/20 History Tamsulosin HCl [Flomax] 0.4 mg PO DAILY 11/06/20 11/06/20 History Aspirin 81 mg PO DAILY 90 Days #90 chew 11/08/20 Rx Atorvastatin [Lipitor] 80 mg PO HS 90 Days #90 tab 11/08/20 Rx Clopidogrel [Plavix] 75 mg PO DAILY 90 Days #90 tab 11/08/20 Rx atenoloL [Tenormin] 50 mg PO BID 90 Days #180 tab 11/08/20 Rx Allergies Allergy/AdvReac Type Severity Reaction Status Date / Time No Known Allergies Allergy Verified 12/17/15 10:32 Physical Exam Vitals: Vital Signs Temp Pulse Resp BP Pulse Ox 11/08/20 12:00 97.6 F 79 16 108/60 99 11/08/20 08:00 98.1 F 79 16 102/53 98 11/08/20 04:32 97.4 F L 87 16 132/58 97 11/08/20 02:00 16 11/08/20 00:52 98.1 F 98 16 111/66 96 11/07/20 20:00 16 11/07/20 19:28 97.8 F 95 16 128/67 96 11/07/20 16:26 80 16 128/73 99 11/07/20 16:00 97.7 F 80 16 128/73 94 L Intake and Output 11/08/20 11/08/20 11/08/20 06:59 14:59 22:59 Intake Total 765 540 Output Total 350 Balance 415 540 Intake: IV 50 Intake, IV Titration 525 Amount Sodium Chloride 0.9% 1, 525 000 ml @ 75 mls/hr IV . [id number] [facility] Rx#:[id number] Oral 240 490 Output: Urine 350 Other: Voiding Method Toilet Toilet Weight 117.2 kg Gen. appearance awake and alert and he is following commands and answering questions. Not in acute respiratory distress at this point in time. He is hemodynamically stable. Head exam was generally normal. There was no scleral icterus or corneal arcus. Mucous membranes were moist. Neck was supple and without jugular venous distension, thyromegaly, or carotid bruits. Carotids were easily palpable bilaterally. There was no adenopathy. The patient is a Mallampati class IV. Lungs sounds are diminished bilaterally and there is no wheezes or rhonchi. Cardiac exam revealed the PMI to be normally situated and sized. The rhythm was regular and no extrasystoles were noted during several minutes of auscultation. The first and second heart sounds were normal and physiologic splitting of the second heart sound was noted. There were no murmurs, rubs, clicks, or gallops. Overall heart sounds are distant. Abdominal exam revealed normal bowel sounds. The abdomen was soft, non-tender, and without masses, organomegaly, or appreciable enlargement of the abdominal aorta. Extremities revealed diminished pulses in the feet bilaterally. Right it is colder than the left.. Pulses are hardly palpable in the dorsalis pedis and posterior tibialis. Femoral pulses are present. No hematoma in the groin. Pulses are also present in the right upper extremity where his irregular cardiac catheterization was done. Neurologically, the patient is a bit sedated. He is arousable, comfortable alert and oriented 3 and moving all 4 extremities without any limitation. Pupils are equal and reactive to light. No facial asymmetry noted. Results - Laboratory Findings CBC and BMP: 11/08/20 13:25 11/08/20 13:25 PT/INR, D-dimer PT 10.7 sec (9.0-12.0) 11/08/20 13:25 INR 1.0 (<1.2) 11/08/20 13:25 Abnormal lab findings: Abnormal Labs 11/06/20 11/06/20 11/06/20 17:50 17:50 17:50 RBC 3.63 L Hgb 12.2 L Hct 36.6 L MCV 100.8 H MCH Lymphocytes # APTT 73.9 H Sodium Carbon Dioxide BUN 27 H Glucose 151 H POC Glucose (mg/dL) Plasma Lactic Acid Ujlien AST 104 H Troponin I Total Protein Urine Protein Urine Blood Urine RBC Urine WBC Urine Mucus 11/06/20 11/06/20 11/06/20 17:50 20:27 22:20 RBC Hgb Hct MCV MCH Lymphocytes # APTT Sodium Carbon Dioxide BUN Glucose POC Glucose (mg/dL) Plasma Lactic Acid Julien AST Troponin I 12.700 H* 11.200 H* Total Protein Urine Protein Trace H Urine Blood Moderate H Urine RBC 132 H Urine WBC 9 H Urine Mucus Rare H 11/07/20 11/07/20 11/07/20 00:12 01:11 08:26 RBC 3.47 L Hgb 11.7 L Hct 35.4 L MCV 102.1 H MCH Lymphocytes # APTT 39.7 H Sodium Carbon Dioxide BUN Glucose POC Glucose (mg/dL) Plasma Lactic Acid Julien AST Troponin I 10.200 H* Total Protein Urine Protein Urine Blood Urine RBC Urine WBC Urine Mucus 11/07/20 11/07/20 11/08/20 08:26 08:26 06:56 RBC 3.38 L Hgb 11.9 L Hct 34.8 L MCV 103.1 H MCH 35.1 H Lymphocytes # 0.7 L APTT 40.6 H Sodium Carbon Dioxide BUN 24 H Glucose 133 H POC Glucose (mg/dL) Plasma Lactic Acid Julien AST Troponin I Total Protein Urine Protein Urine Blood Urine RBC Urine WBC Urine Mucus 11/08/20 11/08/20 11/08/20 06:56 13:16 13:25 RBC 3.12 L Hgb 10.9 L Hct 32.2 L MCV 103.3 H MCH Lymphocytes # APTT Sodium 136 L Carbon Dioxide BUN 30 H Glucose 107 H POC Glucose (mg/dL) 152 H Plasma Lactic Acid Julien AST Troponin I Total Protein Urine Protein Urine Blood Urine RBC Urine WBC Urine Mucus 11/08/20 11/08/20 11/08/20 13:25 13:25 13:25 RBC Hgb Hct MCV MCH Lymphocytes # APTT Sodium 134 L Carbon Dioxide 21 L BUN 31 H Glucose 187 H POC Glucose (mg/dL) Plasma Lactic Acid Julien 3.7 H* AST 70 H Troponin I 4.400 H* Total Protein 6.2 L Urine Protein Urine Blood Urine RBC Urine WBC Urine Mucus 11/08/20 15:15 RBC Hgb Hct MCV MCH Lymphocytes # APTT Sodium Carbon Dioxide BUN Glucose POC Glucose (mg/dL) 192 H Plasma Lactic Acid Julien AST Troponin I Total Protein Urine Protein Urine Blood Urine RBC Urine WBC Urine Mucus - Diagnostic Findings Chest x-ray: image reviewed Assessment and Plan Plan: 1 Acute non-STEMI. The patient underwent cardiac catheterization and he was found to have lesion in the circumflex and RCA. The culprit lesion was RCA and the patient underwent stenting with reduction of the stenosis from 80% down to 0%. He is postop day #1 2 the patient is status post redo cardiac catheterization on 11/08/2020 revealing patent stent to RCA 3 episode of unresponsiveness with bradycardia. Consider vagal reaction as the patient had lost consciousness and became bradycardic post use of bathroom. No acute neurologic event is suspected at this point in time. The patient is awake and alert and neurologically intact and is moving all 4 extremities without any limitation. No altered mentation at this point in time. The patient received CPR briefly for less than 2 minutes with return of smoking circulation. 4 peripheral vascular disease with diminished pulses in lower extremity is bilaterally 5 obesity with a BMI of 39.3 6 cardiomyopathy with ejection fraction of 30-35%, ischemic cardiomyopathy 7 history of prostate cancer 8 hypertension 9 hyperlipidemia 10 history of skin cancer Plan Continue aspirin and Plavix for now post stent insertion. Hold atenolol unless no signs of bradycardia or diminished heart rate over the next 12-24 hours IV fluids with 40 mL an hour normal saline and we'll go with gentle hydration as the patient has CHF with elevated filling pressure and end-diastolic pressure was estimated to be around Watch for any signs of decompensated heart failure. Currently is on oxygen at 2 L per minute nasal cannula Check blood gas to evaluate this patient has base status Monitor cardiac enzymes Continue antibiotic ventilation with Eliquis. The patient is currently in a normal sinus rhythm. Does have history of paroxysmal atrial fibrillation Data the patient over the next 6 hours and proceed with a CAT scan of the brain, noncontrast study and p.m. Monitor the lower extremity pulses
[2020-11-08 15:54] LABS: ABG PO2 29 mmHg (83-108)
[2020-11-08] MEDS ORDERED: RX INFO: IV CONTRAST WAS GIVEN 1 EACH MISC MISCELLANE PRN (16:02)
--- NOTE | 2020-11-08 16:02 | P.PN ---
Progress Note - Text Cardiology progress note: Notified of code blue. Patient apparently had been walking back from going to the bathroom and after sitting in bed, started having right facial drooping for only a few seconds (per son) and then left upper extremity shaking and then lost consciousness. Apparently lost pulse and epinephrine was given with CPR performed and ROSC obtained. See CODE report for full details. There was concern of some bradycardia with what appears to be sinus bradycardia with HR's in the low 50's then some pauses up to 3.2 seconds with what appears to be Afib. Patient slowly started to come to over the course of approximately 15 minutes however also multiple episodes of emesis. Patient denied any chest pain or pressure. EKG was performed which showed ST depressions in the inferolateral leads however no significant ST elevation. Patient had presented with chest pain, NSTEMI and was found to have an 80% mid RCA stenosis with successful PCI. Echo showed EF 30-35% with diffuse anteroseptal, inferior, apical hypokinesis, decreased from prior EF 50-55%. Initial cath was from the right femoral site and no significant issue with cath site. Due to concern of stent thrombosis recommendation was for LHC which was performed today at approximately 2PM from the right radial approach. LHC showed similar mild more distal 30-40% stenosis however patent stent in the RCA and the left system appeared unchanged. LVEDP was elevated at 30mmHg. Patient received only 25mcg during the procedure for some back pain from laying flat. Patient had tolerated the procedure well up until when [facility] and then was noted to have eyes rolling into the back of his head, became pale then flushed and mild shaking of both upper extremities. During this time, HR was normal on monitor. Episode only lasted approximately 10 seconds then resolved with patient becoming nauseous and dry heaving. BP 105/60, HR 80. Assessment/Plan Unclear episodes of altered mental status. Rule out stroke, TIA, seizure or hypoperfusional state. Nausea and vomiting also of unclear etiology without any abdominal pain. CAD with patent stents, does not appear to be an ischemic etiology Cardiomyopathy, out of proportion to RCA disease. May be component of Takotsubos vs other. RCA disease does not explain entirely the drop in EF. Bradycardic episode around the time of code however HR's in the 50's and then pause of only 3.2 seconds. Unclear if vagal episode or primary conduction abnormality. Continue with supportive care, ICU recommendations appreciated. Troponin down trending and continue to monitor. Lactic acid noted to be elevated. Vasopressors as needed. Prognosis guarded. Tobi Fernandez, DO
--- NOTE | 2020-11-08 16:21 | P.CARDCATH ---
Description of Procedure: PROCEDURES PERFORMED: Left heart catheterization, bilateral coronary angiography INDICATION: Code blue, recent NSTEMI with PCI of RCA 11/07/2020 HISTORY: This is a pleasant 85-year-old male past medical history significant for persistent atrial fibrillation (diagnosed in June 2020 started on Eliquis) , coronary artery disease status post PCI with stent placement in the mid RCA and posterior left ventricular branch the distal RCA in 2002, hypertension, hyperlipidemia who had presented with chest pain and was found to have NSTEMI. He underwent LHC yesterday and PCI of mid RCA. He had been doing well this morning, post stenting yesterday. Unfortunately he had a syncopal episode which started with questionable seizure like activity and then lost pulses. He was noted to have some bradycardia with HR in the 50's and pause up to 3.2 seconds. He recieved brief CPR and Epinephrine and had ROSC. Patient was nauseous however no significant chest pain. EKG showed diffuse ST depressions and therefore recommendation was to proceed to [facility] to evaluate for and instent thrombosis. CONSENT:I have discussed the risks, benefits and alternative therapies for the above-mentioned procedure and for both sedation/analgesia as well as necessary blood product administration, if indicated, as they pertain to this patient. The patient has indicated understanding and acceptance of the risks and procedures discussed. PROCEDURE: After the risks, benefits and alternatives of the above mentioned procedure explained in detail with the patient, informed consent was obtained. Patient was taken to the catheterization lab and prepped and draped in usual fashion. 1% lidocaine was used to anesthetize the right radial artery. A 6- [place] sheath was placed in the right radial artery using modified Seldinger technique and ultrasound guidance. Left coronary angiography was performed with a 5-[place] JL 3.5 catheter. Right coronary angiography was performed with a 5- [place] FR 5 catheter in various views. The FR5 catheter was inserted into the left ventricle and pressure measurements were obtained. Images appeared unchanged from yesterday and therefore catheters were removed. The right radial sheath was removed and a TR band was placed with hemostasis achieved. The patient tolerated the procedure well. Patient was transported back to the post catheterization holding area in stable condition. Conscious Sedation: Patient was monitored under the direct supervision of vision of myself for conscious sedation using fentanyl for a total duration of 24 minutes HEMODYNAMICS: Aorta: 109/69 LV: 95/30 LVEDP 30mmHg SELECTIVE CORONARY ARTERIOGRAPHY: LEFT MAIN: The left main is a large caliber vessel which bifurcates into the LAD and circumflex. There is no significant stenosis. LEFT ANTERIOR DESCENDING CORONARY ARTERY: LAD is a large caliber vessel which wraps around to the apex. There are mild luminal irregularities with proximal 30-40% stenosis. LEFT CIRCUMFLEX CORONARY ARTERY: Left circumflex is a moderate caliber vessel. The circumflex gives off a moderate caliber OM1 and then just after the OM1 there is a circumflex 50% stenosis. OM2 has a 50% proximal stenosis. RIGHT CORONARY ARTERY: The right coronary artery is a large caliber vessel which gives off a PDA and PLV branch and is the dominant vessel. There is a mid to distal RCA stent which appears unchanged from yesterday. There is more distal diffuse 30-40% stenosis past the recently placed stent. FINAL IMPRESSION: 1. CAD as described above which appears unchanged from prior angiography yesterday and with patent RCA stent 2. Elevated left-sided filling pressures PLAN: 1. Aggressive risk factor modification per most recent ACC/AHA guidelines. 2. Does not appear to be any issue with recently placed stent and would pursue other workup of altered mental status and code.
--- NOTE | 2020-11-08 17:11 | PN ---
PROGRESS NOTE DATE OF SERVICE: 11/08/2020 This is an 85-year-old gentleman who was admitted with acute non ST elevation myocardial infarction with cardiac catheterization, stenting of the RCA yesterday. Today when the patient was walking back from the bathroom the patient suffered a period of unresponsiveness and bradycardia. The patient apparently had a cardiorespiratory arrest as well. The patient had brief CPR. The patient is monitored in ICU at this time. Dr. Fernandez did repeat cardiac catheterization. The full report is not available. The initial report shows patent stents at this time. Patient is being closely monitored. PAST MEDICAL HISTORY: Reviewed. REVIEW OF SYSTEMS: Could not be taken. CURRENT MEDICATIONS: Eliquis, aspirin, Atropine, multivitamins, Nitrostat. Doses reviewed. PHYSICAL EXAMINATION: GENERAL: Patient is alert and oriented times three. VITAL SIGNS: Pulse 79, blood pressure 108/60, respirations 16, temperature 97.6, pulse ox 99% on room air. HEENT: Conjunctivae normal. Oral mucosa moist. NECK: No jugular venous distention. No carotid bruits. No lymph node enlargement. RESPIRATORY: Breath sounds diminished at the bases. A few scattered rhonchi. HEART: S1 and S2, muffled. ABDOMEN: Soft, no tenderness. NERVOUS: No focal deficits. LAB STUDIES: WBC 8, hemoglobin 10.9. ABGs noted and plasma lactic acid 3.7. ASSESSMENT: 1. Chest pain, acute non-ST segment elevation myocardial infarction with troponin 12.7, status post cardiac catheterization and PRO[employer] stenting of the proximal right coronary artery with in-stent restenosis. 2. Status post cardiac arrest with following CPR and repeat cardiac cath showing patent stents. 3. Elevated AST. 4. Heparin monitoring. 5. Anemia, macrocytic. 6. History of coronary artery disease with stent. 7. Hypertension. 8. Hyperlipidemia. 9. History of prostate cancer. 10.History of skin cancer. 11.History of degenerative joint disease. 12.Remote history of nicotine dependence. 13.Obesity with body mass index of 38. 14.FULL CODE. RECOMMENDATIONS AND DISCUSSION: Recommend to continue current management and continue symptomatic treatment. Continue with the antiplatelet agents. Continue with IV heparin. Continue the rest of the medications. Monitor blood pressure closely. Closely follow with Cardiology. Add proton pump inhibitors. The patient is on Eliquis. Guarded prognosis because of multiple complex medical issues. Further recommendations to follow. MMODL / IJN: [id number] /
[2020-11-08 18:14] LABS: Glucose,Whole Blood 160 mg/dL (75-99)
--- NOTE | 2020-11-08 19:43 | CT ---
EXAMINATION TYPE: CT brain wo con DATE OF EXAM: 11/08/2020 COMPARISON: HISTORY: mental status changes CT DLP: 1217.4 mGycm Automated exposure control for dose reduction was used. Exam performed with no contrast. There is some enlargement of the ventricles. There is cerebral cortical atrophy. There is no mass eff ect nor midline shift. There is no sign of intracranial hemorrhage. The calvarium is intact. Skull ba se is intact. IMPRESSION: Cerebral atrophy and hydrocephalus. No acute intracranial abnormality.
[2020-11-08] MEDS: ATORVASTATIN 80 MG TAB PO SCH (20:03)
[2020-11-09 04:18] LABS: Basophils % (A) 0 %; Eosinophils # (A) 0.1 k/uL (0-0.7); Eosinophils % (A) 1 %; HCT 32.2 % (39.0-53.0); HGB 10.8 gm/dL (13.0-17.5); Lymphocytes # (A) 1.1 k/uL (1.0-4.8); Lymphocytes % (A) 13 %; MCH 34.5 pg (25.0-35.0); MCHC 33.5 g/dL (31.0-37.0); Macrocytosis Slight; Mean Platelet Volume 8.4; Monocytes # (A) 0.7 k/uL (0-1.0); Monocytes % (A) 8 %; Neutrophils # (A) 6.4 k/uL (1.3-7.7); Neutrophils % (A) 77 %; Platelet Count 157 k/uL (150-450); RBC 3.13 m/uL (4.30-5.90); RDW 12.5 % (11.5-15.5); WBC 8.3 k/uL (3.8-10.6)
[2020-11-09 05:36] LABS: Calcium 8.9 mg/dL (8.4-10.2); Potassium 4.9 mmol/L (3.5-5.1)
[2020-11-09] MEDS: PANTOPRAZOLE 40 MG TABLET PO SCH (06:45)
[2020-11-09 06:56] LABS: Glucose,Whole Blood 153 mg/dL (75-99)
--- NOTE | 2020-11-09 07:22 | XR ---
EXAMINATION TYPE: XR chest 1V portable DATE OF EXAM: 11/09/2020 COMPARISON: Chest x-ray 11/08/2020 HISTORY: Possible aspiration, abnormal chest x-ray TECHNIQUE: Single frontal view of the chest is obtained. FINDINGS: There is no evident pneumothorax or pleural effusion. Interstitium is mildly increased, pa tchy basilar density is noted. There is persistent elevation of the right hemidiaphragm. Cardiomedias tinal silhouette is stable. Aorta is dense. There are overlying leads. IMPRESSION: Findings are essentially stable. Suspect basilar atelectasis, difficult to exclude inter stitial edema, effusion, pneumonia. Follow-up PA and lateral chest x-ray likely would be of benefit
[2020-11-09] MEDS: APIXABAN 2.5 MG TABLET PO SCH ×2 (08:26→19:59)
[2020-11-09] MEDS: MULTIVITAMINS, THERA 1 EACH TAB PO SCH (08:26)
[2020-11-09] MEDS: TAMSULOSIN 0.4 MG CAP.ER.24H PO SCH (08:26)
[2020-11-09] MEDS: ASPIRIN 81 MG PO SCH (08:26)
[2020-11-09] MEDS: lisinopriL 5 MG TAB PO SCH ×2 (08:26→19:59)
[2020-11-09] MEDS: CLOPIDOGREL 75 MG TAB PO SCH (08:27)
[2020-11-09] MEDS: TROSPIUM CHLORIDE 20 MG TABLET PO SCH (08:27)
[2020-11-09] MEDS ORDERED: FUROSEMIDE 10 MG/ML 4 ML VIAL IV STA (08:39)
--- NOTE | 2020-11-09 09:10 | P.PN ---
Subjective Progress Note Date: 11/09/20 This is an 85-year-old male patient got transferred to the intensive care unit after a cardiac event requiring another cardiac catheterization that was done this afternoon following that the patient was brought into the intensive care unit. The patient is known to have coronary artery disease. He was Hospital as forany period he was taken to the cardiac catheterization lab yesterday he underwent a cardiac catheterization and he ended up having stenting of the RCA. Note that he also had disease involving the circumflex in the order of 70-80%. The right coronary artery was thought to be dominant and it was thought to be the culprit and based on that a stent was inserted in the mid RCA reducing and the lesion from 80% to 0%. The patient was in the medical floor and he acutely became unresponsive and CPR was initiated. I reviewed the code records. Apparently the patient was walking back from the bathroom and he became unresponsive and he had sinus bradycardia with a heart rate in the low 20s. He was currie and unresponsive. He received 2 rounds of CPR and he was given epinephrine and CPR was initiated and was given to her for a total of 2 minutes and subsequently there was recurrence within circulation and the patient regained back his consciousness. His blood pressure came at 158/98. The patient began having some emesis. He required no intubation. The patient was noted to have a 3.2 second part. Based on all this events, the patient underwent another cardiac catheterization and this was done by Dr. Fernandez and the cardiac catheterization revealed a patent RCA stent. No intervention was done and the patient was brought back to the intensive care unit. Echocardiogram that was done yesterday showed impairment of the LV function and the patient an ejection fraction of 30-35% in addition to anteroseptal and inferior hypokinesis and apical hypokinesis. RV was within normal limits. No other significant valvular abnormalities. I was told by Dr. Fernandez that the f illing pressure with elevated and has lived ventricular end-diastolic pressure was at around 30. His chest x-ray that was done earlier this morning showed cardiomegaly with some mild pulmonary vascular congestion. No airspace disease. No effusions. The right hemidiaphragm was slightly elevated. The patient was in the intensive care unit. The patient was awake and alert. The patient was hemodynamically stable. He was feeling any chest pain. The second cardiac catheterization was done through the right radial. The feet are cold and the pulses were diminished in lower extremities bilaterally. His creatinine was up to 1.23 from this morning and the rest of the blood work and electrodes were within normal limits. His lactic acid level was at 3.7 and the patient is currently on aspirin 325 mg by mouth daily, Plavix 75 mg by mouth daily, Eliquis 2.5 mg by mouth twice a day and he is awake. Is following commands. No focal neurological deficits. He is obese. Denies having any ch ronic lung disease. No asthma. No emphysema. No obstructive sleep apnea although he does have some features otherwise. His cardiac rhythm is sinus. He has had previous history of atrial fibrillation. No seizure activity. No history of any CVA. on 11/09/2020, the patient is awake and alert and hemodynamically stable. History of any chest pain and he did not have any further neurologic events or cardiovascular events overnight. His night was uneventful. Currently, he is in a sinus rhythm. Heart rate is in the mid 80s. He is on 2 L about 2 by nasal cannula and his pulse ox is 94%. His white cell count is at 8.3 with hemoglobin of 10.8. His renal function is stable and the creatinine is at 1.25 with a BUN of 30. His troponin peaked at 11.2and he is down trending and his troponins. He remains on aspirin. He remains on Plavix. He remains on Eliquis 2.5 mg by mouth twice a day.the CAT scan of the brain was essentially negative and the patient was found to have some [employer] atrophy. No acute abnormalities noted. A chest x-ray from today showed elevation of the right hemidiaphragm. Some cardiomegaly. Minimal pulmonary vascular congestion. No other acute abnormalities noted. His IV fluids running at KVO and he has been given Lasix by cardiology 1 dose, 40 mg IV push.. The patient overall is weak. He does have some abdominal distention and his last bowel movement was on 11/07/2020. No nausea. No vomiting. He has adequate pulses in lower extremities bilaterally. Objective - Vital Signs Vital signs: Vital Signs Temp 98.8 F 11/09/20 04:00 Pulse 82 11/09/20 07:00 Resp 22 11/09/20 07:00 BP 140/68 11/09/20 07:00 Pulse Ox 97 11/09/20 06:00 Intake & Output 11/08/20 11/09/20 11/09/20 18:59 06:59 18:59 Intake Total 660 480 40 Output Total 0 985 40 Balance 660 -505 0 Weight 120.1 kg Intake: IV 170 480 40 Sodium Chloride 0.9% 1, 120 480 40 000 ml @ 40 mls/hr IV . Q24H [facility] Rx#:[id number] Oral 490 Output: Urine 0 985 40 Other: Voiding Method Toilet Indwelling Catheter - Exam Gen. appearance awake and alert and he is following commands and answering questions. Not in acute respiratory distress at this point in time. He is hemodynamically stable. Head exam was generally normal. There was no scleral icterus or corneal arcus. Mucous membranes were moist. Neck was supple and without jugular venous distension, thyromegaly, or carotid bruits. Carotids were easily palpable bilaterally. There was no adenopathy. The patient is a Mallampati class IV. Lungs sounds are diminished bilaterally and there is no wheezes or rhonchi. Cardiac exam revealed the PMI to be normally situated and sized. The rhythm was regular and no extrasystoles were noted during several minutes of auscultation. The first and second heart sounds were normal and physiologic splitting of the second heart sound was noted. There were no murmurs, rubs, clicks, or gallops. Overall heart sounds are distant. Abdominal exam revealed normal bowel sounds. The abdomen was soft, non-tender, and without masses, organomegaly, or appreciable enlargement of the abdominal aorta. Extremities revealed diminished pulses in the feet bilaterally. Right it is colder than the left.. Pulses are hardly palpable in the dorsalis pedis and posterior tibialis. Femoral pulses are present. No hematoma in the groin. Pulses are also present in the right upper extremity where his irregular cardiac catheterization was done. Neurologically, the patient is a bit sedated. He is arousable, comfortable alert and oriented 3 and moving all 4 extremities without any limitation. Pupils are equal and reactive to light. No facial asymmetry noted. - Labs CBC & Chem 7: 11/09/20 03:31 11/09/20 03:31 Labs: Abnormal Lab Results - Last 24 Hours (Table) 11/08/20 11/08/20 11/08/20 Range/Units 13:16 13:25 13:25 RBC 3.12 L (4.30-5.90) m/uL Hgb 10.9 L (13.0-17.5) gm/dL Hct 32.2 L (39.0-53.0) % MCV 103.3 H (80.0-100.0) fL ABG pH (7.35-7.45) ABG pCO2 (35-45) mmHg ABG pO2 (83-108) mmHg ABG HCO3 (21-25) mmol/L ABG Total CO2 (19-24) mmol/L ABG O2 Saturation (94-97) % Sodium 134 L (137-145) mmol/L Carbon Dioxide 21 L (22-30) mmol/L BUN 31 H (9-20) mg/dL Glucose 187 H (74-99) mg/dL POC Glucose (mg/dL) 152 H (75-99) mg/dL Plasma Lactic Acid Julien (0.7-2.0) mmol/L AST 70 H (17-59) U/L Troponin I (0.000-0.034) ng/mL Total Protein 6.2 L (6.3-8.2) g/dL 11/08/20 11/08/20 11/08/20 Range/Units 13:25 13:25 15:15 RBC (4.30-5.90) m/uL Hgb (13.0-17.5) gm/dL Hct (39.0-53.0) % MCV (80.0-100.0) fL ABG pH (7.35-7.45) ABG pCO2 (35-45) mmHg ABG pO2 (83-108) mmHg ABG HCO3 (21-25) mmol/L ABG Total CO2 (19-24) mmol/L ABG O2 Saturation (94-97) % Sodium (137-145) mmol/L Carbon Dioxide (22-30) mmol/L BUN (9-20) mg/dL Glucose (74-99) mg/dL POC Glucose (mg/dL) 192 H (75-99) mg/dL Plasma Lactic Acid Julien 3.7 H* (0.7-2.0) mmol/L AST (17-59) U/L Troponin I 4.400 H* (0.000-0.034) ng/mL Total Protein (6.3-8.2) g/dL 11/08/20 11/08/20 11/08/20 Range/Units 15:47 17:00 18:12 RBC (4.30-5.90) m/uL Hgb (13.0-17.5) gm/dL Hct (39.0-53.0) % MCV (80.0-100.0) fL ABG pH 7.34 L (7.35-7.45) ABG pCO2 48 H (35-45) mmHg ABG pO2 29 L* (83-108) mmHg ABG HCO3 26 H (21-25) mmol/L ABG Total CO2 27 H (19-24) mmol/L ABG O2 Saturation 48.3 L (94-97) % Sodium (137-145) mmol/L Carbon Dioxide (22-30) mmol/L BUN (9-20) mg/dL Glucose (74-99) mg/dL POC Glucose (mg/dL) 160 H (75-99) mg/dL Plasma Lactic Acid Julien (0.7-2.0) mmol/L AST (17-59) U/L Troponin I 4.090 H* (0.000-0.034) ng/mL Total Protein (6.3-8.2) g/dL 11/09/20 11/09/20 11/09/20 Range/Units 03:31 03:31 06:54 RBC 3.13 L (4.30-5.90) m/uL Hgb 10.8 L (13.0-17.5) gm/dL Hct 32.2 L (39.0-53.0) % MCV 103.0 H (80.0-100.0) fL ABG pH (7.35-7.45) ABG pCO2 (35-45) mmHg ABG pO2 (83-108) mmHg ABG HCO3 (21-25) mmol/L ABG Total CO2 (19-24) mmol/L ABG O2 Saturation (94-97) % Sodium 134 L (137-145) mmol/L Carbon Dioxide (22-30) mmol/L BUN 30 H (9-20) mg/dL Glucose 114 H (74-99) mg/dL POC Glucose (mg/dL) 153 H (75-99) mg/dL Plasma Lactic Acid Julien (0.7-2.0) mmol/L AST (17-59) U/L Troponin I (0.000-0.034) ng/mL Total Protein (6.3-8.2) g/dL Assessment and Plan Plan: 1 Acute non-STEMI. The patient underwent cardiac catheterization and he was found to have lesion in the circumflex and RCA. The culprit lesion was RCA and the patient underwent stenting with reduction of the stenosis from 80% down to 0%. He is postop day #2and his initial cardiac catheterization was done on 11/07/2020. 2 the patient is status post redo cardiac catheterization on 11/08/2020 revealing patent stent to RCA 3 episode of unresponsiveness with bradycardia. Consider vagal reaction as the patient had lost consciousness and became bradycardic post use of bathroom. No acute neurologic event is suspected at this point in time. The patient is awake and alert and neurologically intact and is moving all 4 extremities without any limitation. No altered mentation at this point in time. The patient received CPR briefly for less than 2 minutes with return of smoking circulation.preventive vagal reaction. The patient's night was uneventful. 4 peripheral vascular disease with diminished pulses in lower extremity is bilaterally 5 obesity with a BMI of 39.3 6 cardiomyopathy with ejection fraction of 30-35%, ischemic cardiomyopathy 7 history of prostate cancer 8 hypertension 9 hyperlipidemia 10 history of skin cancer 11 abdominal distention Plan obtain a flat some of the abdomen restart MiraLAX once a day, 1 packet Continue aspirin and Plavix for now post stent insertion. atenolol is still on hold for now as the patient takes 50 mg of atenolol twice a day at home , discuss with cardiology the possibility of restarting a low-dose beta blockers for now of their choice IV fluids KVO Laix 40 mg IV x1 Watch for any signs of decompensated heart failure. Currently is on oxygen at 2 L per minute nasal cannula, wean off oxygen CAT scan of the brain was noted Continue Eliquis. The patient is currently in a normal sinus rhythm. Does have history of paroxysmal atrial fibrillation
--- NOTE | 2020-11-09 09:14 | P.PN ---
Subjective HPI: This is a pleasant 85-year-old male past medical history significant for persistent atrial fibrillation (diagnosed in June 2020 started on Eliquis) , coronary artery disease status post PCI with stent placement in the mid RCA and posterior left ventricular branch the distal RCA in 2002, hypertension, hyperlipidemia. He follows in the office with Dr. Cifuentes. We have been asked to see in consultation for chest pain. Patient is seen and examined That side. Patient sitting up in chair, in no acute distress. Patient stated chest pain started at 10 PM Wednesday night, patient see out to the bathroom and felt short of breath. He rates his pain 4 out of 10, describes dull right sided chest pain, non-radiating but felt pain in right axilla. Pain lasted about 6 hours, and was relieved. Patient went to bed and in the morning called his PCP who told him to go to the emergency department. Patient presented to [facility], troponin 13.3, patient was given 325 mg aspirin, started on a heparin drip and transferred to [facility] . Associated symptoms include shortness of breath. Patient denies palpitations, lower extremity edema, fatigue, weakness, lightheadedness, syncope. At this time patient does not endorse any chest pain or shortness of breath . Patient denies history of Diabetes, Stroke, OR, or Heart failure. Patients states he compliant with medication. Former smoker quit in 1984. Denies ETOH or illicit drug use. 11/07/20: Patient underwent cardiac catheterization with Dr. Cifuentes which revealed - RCA large dominant vessel, that was previous stented. 80% in-stent restenosis within the mid RCA. Stenting of proximal RCA with in-stent restenostic lesion with a drug eluting stent was performed by Dr. Rivera. 11/08/20: Patient seen and examined this morning, feeling well. However, endorses not sleeping well due to the hospital bed being uncomfortable and the hospital being noisy. Patient denies palpitations, lower extremity edema, fatigue, weakness, dizziness, lightheadedness, syncope. EKG reviewed this morning, patient in sinus rhythm HR 78, left axis deviation, slow R wave progression. Telemetry reviewed - Laboratory data reviewed, hemoglobin stable 11.9, WBC 8.6, Plt 167, sodium 136, K 4.9, sCr 1.24 (1.03 yesterday). Patient slightly hypotensive this morning asymptomatic blood pressure 102/53, heart rate 79, SpO2 98% on room air, afebrile 11/09/2020: Patient seen and examined. Patient had a CODE BLUE called yesterday after coming back from the bathroom and found to have initially right facial droop and some left shaking and loss of consciousness. Patient with some bradycardia with heart rates in the 50s including a 3.2 second pause, unclear if the bradycardic episode was the precipitating event or a vagal reaction to other process. Patient then had CPR performed and epinephrine given with ROSC and he was somewhat lethargic however slowly came back to. Patient was having profuse nausea and vomiting however denying any chest pain. Patient's EKG showed nonspecific ST depressions. Patient was taken back to the catheterization lab with a left heart catheterization showing unchanged CAD and patent stent in the RCA. Patient only received 25 g of fentanyl for some back pain during the procedure. Patient then was noted to have a similar episode when he was moved over to the stretcher from the Long Chain [employer]amer bed where his eyes began to go to the back of his head, he got pale and then flushed and became altered and only lasting approximately 5 seconds with mild shaking of bilateral upper extremities. Patient's heart rate was noted to be normal during this time. He then became nauseous with dry heaves. Came back to normal within a matter of a total of 60 seconds. Blood pressure was somewhat borderline and he was given 40 mL/h overnight. No further episodes overnight. He admits to some chest pain around the site of his chest compressions and some back pain. He admits to some shortness breath related to deep inspiration however is somewhat tachypnic exam. He had CT brain performed which showed cerebral atrophy and hydrocephalus however no acute intracranial abnormality. He also had a chest x-ray which showed basilar atelectasis and difficult to exclude interstitial edema, effusion or pneumonia. LVEDP was noted to be elevated during heart catheterization at 30. He denies any abdominal pain however has not had a bowel movement in the last few days. PHYSICAL EXAMINATION CONSTITUTIONAL: Obese, chronically ill-appearing HEENT: Head is normocephalic. Pupils are equal, round. Sclerae anicteric. Mucous membranes of the mouth are moist. No JVD. No carotid bruit. CHEST EXAMINATION: Lungs are clear to auscultation. No chest wall tenderness is noted on palpation or with deep breathing. HEART EXAMINATION: Regular rate and rhythm. S1, S2 heard. No murmurs, gallops or rub. ABDOMEN: Soft, nontender. Positive bowel sounds. EXTREMITIES: 2+ peripheral pulses, no lower extremity edema and no calf tenderness. Right Femoral cath site- clean, dry, no redness/swelling, no bleeding NEUROLOGIC EXAMINATION: Patient is awake, alert and oriented x3. ASSESSMENT -NSTEMI -Coronary Artery Disease status post PCI of RCA with stent placement 11/07/20 -History of Hypertension -History of hyperlipidemia -Persistent atrial fibrillation -CODE BLUE, appears to have had loss of pulses and received CPR and epinephrine with ROSC after a few minutes. Additional seizure-like activity noted with initial right facial droop and left upper extremity movements. There was some bradycardic event noted around this time however not extremely bradycardic with heart rates in the 50s and only 3.2 second positive, questionable if this would be significant enough to cause prolonged altered mental status and code. Additionally patient had an episode in the Long [employer]amer with brief altered mental status with normal heart rate. Bradycardic episode may have been vagal reaction to a neurologic process. - 3.2 second pause with Afib around the time of Code. Unclear if this precipitated vs suspect more of a vagal response to other process - Nausea and vomitting during code. Unclear etiology - Seizure like activity - Cardiomyopathy out of proportion to CAD with prior EF 50-55% decreased to 30- 35% with NSTEMI RCA PCI - Borderline hypotension 11/08, improved today - Acute on chronic systolic heart failure with LVEDP 30mmHg on [facility] 11/08 PLAN Unclear etiology of the events of yesterday. Patient with 2 episodes with initial 1 occurring after coming back from bathroom with seizure-like activity, loss of consciousness and apparent loss of pulses with CPR and epinephrine given. There was some bradycardia noted during this episode however repeat episode occurred in Long Chain Beamer which was less intense and less prolonged with normal sinus rhythm and no bradycardia noted during this time. Left heart catheterization showed patent stents. Patient having chest pain from his chest compressions however do not suspect ischemic etiology of patient's presentation yesterday. CT brain showed atrophy and hydrocephalus however no acute process. Consult neurology and possible EEG to rule out seizure activity as cause. Continue with supportive care. No clear-cut indictation for permanent pacemaker/AICD at this time. Decrease beta zeferino given bradycardia. High probability of vaso vagal episode during initial CODE BLUE. Patient with some tachypnea which she relates to issues with taking a deep breath from the CPR. His EDP however was elevated at 30 and given blood pressure appears stable we will start with some diuresis. Monitor patient closely. Prognosis guarded. Objective - Vital Signs Vital signs: Vital Signs Temp 98.8 F 11/09/20 04:00 Pulse 82 11/09/20 07:00 Resp 22 11/09/20 07:00 BP 140/68 11/09/20 07:00 Pulse Ox 97 11/09/20 06:00 Intake & Output 11/08/20 11/09/20 11/09/20 18:59 06:59 18:59 Intake Total 660 480 40 Output Total 0 985 40 Balance 660 -505 0 Weight 120.1 kg Intake: IV 170 480 40 Sodium Chloride 0.9% 1, 120 480 40 000 ml @ 40 mls/hr IV . Q24H [facility] Rx#:[id number] Oral 490 Output: Urine 0 985 40 Other: Voiding Method Toilet Indwelling Catheter - Labs CBC & Chem 7: 11/09/20 03:31 11/09/20 03:31 Labs: Abnormal Lab Results - Last 24 Hours (Table) 11/08/20 11/08/20 11/08/20 Range/Units 13:16 13:25 13:25 RBC 3.12 L (4.30-5.90) m/uL Hgb 10.9 L (13.0-17.5) gm/dL Hct 32.2 L (39.0-53.0) % MCV 103.3 H (80.0-100.0) fL ABG pH (7.35-7.45) ABG pCO2 (35-45) mmHg ABG pO2 (83-108) mmHg ABG HCO3 (21-25) mmol/L ABG Total CO2 (19-24) mmol/L ABG O2 Saturation (94-97) % Sodium 134 L (137-145) mmol/L Carbon Dioxide 21 L (22-30) mmol/L BUN 31 H (9-20) mg/dL Glucose 187 H (74-99) mg/dL POC Glucose (mg/dL) 152 H (75-99) mg/dL Plasma Lactic Acid Julien (0.7-2.0) mmol/L AST 70 H (17-59) U/L Troponin I (0.000-0.034) ng/mL Total Protein 6.2 L (6.3-8.2) g/dL 11/08/20 11/08/20 11/08/20 Range/Units 13:25 13:25 15:15 RBC (4.30-5.90) m/uL Hgb (13.0-17.5) gm/dL Hct (39.0-53.0) % MCV (80.0-100.0) fL ABG pH (7.35-7.45) ABG pCO2 (35-45) mmHg ABG pO2 (83-108) mmHg ABG HCO3 (21-25) mmol/L ABG Total CO2 (19-24) mmol/L ABG O2 Saturation (94-97) % Sodium (137-145) mmol/L Carbon Dioxide (22-30) mmol/L BUN (9-20) mg/dL Glucose (74-99) mg/dL POC Glucose (mg/dL) 192 H (75-99) mg/dL Plasma Lactic Acid Julien 3.7 H* (0.7-2.0) mmol/L AST (17-59) U/L Troponin I 4.400 H* (0.000-0.034) ng/mL Total Protein (6.3-8.2) g/dL 11/08/20 11/08/20 11/08/20 Range/Units 15:47 17:00 18:12 RBC (4.30-5.90) m/uL Hgb (13.0-17.5) gm/dL Hct (39.0-53.0) % MCV (80.0-100.0) fL ABG pH 7.34 L (7.35-7.45) ABG pCO2 48 H (35-45) mmHg ABG pO2 29 L* (83-108) mmHg ABG HCO3 26 H (21-25) mmol/L ABG Total CO2 27 H (19-24) mmol/L ABG O2 Saturation 48.3 L (94-97) % Sodium (137-145) mmol/L Carbon Dioxide (22-30) mmol/L BUN (9-20) mg/dL Glucose (74-99) mg/dL POC Glucose (mg/dL) 160 H (75-99) mg/dL Plasma Lactic Acid Julien (0.7-2.0) mmol/L AST (17-59) U/L Troponin I 4.090 H* (0.000-0.034) ng/mL Total Protein (6.3-8.2) g/dL 11/09/20 11/09/20 11/09/20 Range/Units 03:31 03:31 06:54 RBC 3.13 L (4.30-5.90) m/uL Hgb 10.8 L (13.0-17.5) gm/dL Hct 32.2 L (39.0-53.0) % MCV 103.0 H (80.0-100.0) fL ABG pH (7.35-7.45) ABG pCO2 (35-45) mmHg ABG pO2 (83-108) mmHg ABG HCO3 (21-25) mmol/L ABG Total CO2 (19-24) mmol/L ABG O2 Saturation (94-97) % Sodium 134 L (137-145) mmol/L Carbon Dioxide (22-30) mmol/L BUN 30 H (9-20) mg/dL Glucose 114 H (74-99) mg/dL POC Glucose (mg/dL) 153 H (75-99) mg/dL Plasma Lactic Acid Julien (0.7-2.0) mmol/L AST (17-59) U/L Troponin I (0.000-0.034) ng/mL Total Protein (6.3-8.2) g/dL
--- NOTE | 2020-11-09 10:30 | XR ---
Abdomen HISTORY: Distention Frontal view the abdomen and 2 images, no comparisons There are atherosclerotic vascular calcifications present. Bone mineralization is maintained. Surgica l coils are present over the mid abdomen. No evident bowel obstruction or pneumoperitoneum. Lung base s not entirely included on the exam. Exam may be somewhat limited by portable technique. IMPRESSION: No evident obstruction.
--- NOTE | 2020-11-09 11:05 | P.CNNES ---
History of Present Illness Consult date: 11/09/20 Requesting physician: Tobi Fernandez Reason for Consult: seizure-like activity History of Present Illness: This is an 85-year-old gentleman with medical history of persistent atrial fibrillation on Eliquis, coronary artery disease, hypertension, hyperlipidemia presented emergency department on 11/06/2020 for chest pain and shortness of breath. Neurology was consulted for seizure-like activity. Per cardiology notes (Dr. Fernandez) what facial droop and some left shaken and loss of consciousness. He also mentioned the patient has some bradycardia with a heart rate in the 50s with a 3.2 second positive and it's unclear of the bradycardias episode was the participating event or vagal reaction to other processes. It Seems that the patient had a cardiac catheterization on 11/07/2020 and he ended up stenting of the right coronary artery then the patient will after that was taken to the medical floor and he became unresponsive and that CPR was initiated it seems to the patient was walking back to the bathroom and became unresponsive and he had sinus bradycardia with a heart rate in the 20s (per ICU team). He received 2 rounds of CPR and was given epinephrine and CPR was in the seated and was given for total 2 minutes and there was a recurrence of the circulation and the patient regained consciousness. Per the patient nurse the whole episode lasted possibly 5 minutes patient didn't require any intubation. Per the ICU attending episode lasted less than 2 minutes. As a result the patient underwent another cardiac catheterization which revealed patent right coronary artery stent and no intervention was done and then the patient was taken to the ICU. This seems the patient's feet are cold and the pulses were diminished in the lower extremity bilaterally per ED note. Per the cardiology notes and mentioned that on the 11/08/2020 the episode with the patient was walking back from the bathroom he was found to have initial right facial droop and left shaken loss of consciousness. He had some br adycardia with a heart rate in the 50s and a 3.2 second pulse. And as a result CPR was initiated and the patient was given epinephrine. Patient continues to feels short of breath. According to the patient he remembers going to the bathroom and was feeling light-headed, dizzy and very short of breath then he does not remember the episode after that. Patient denies any history of seizures in the past. He does not recall if he was still on toilet or was walking back. He denies history of seizures in the past or family history of seizures. He said he lives home alone and walks without assistance. A CT of the head on 11/08/20 was done and is reported as cerebral atrophy and hydrocephalus. No acute intracranial abnormality. Upon reviewing the CT of the head personally I do not see any acute subacute ischemia or a do not see any intraparenchymal hemorrhage. Regarding this reporting of hydrocephalus, the patient has generalized atrophy, so this hydrocephalus seems dilated but seems normal for that the generalized atrophy in my opinion. Echocardiogram that was done on 11/08/2020 showed impaired left ventricular function with a ejection fraction of 30-35%. In addition to antral septal and inferior hypokinesis and apical hypokinesis. No other significant valvular abnormality. Review of Systems Review of system: The 12 point system was reviewed and apparent positive and negative per HPI. Past Medical History Past Medical History: Coronary Artery Disease (CAD), Cancer, Chest Pain / Angina, Hyperlipidemia, Hypertension Additional Past Medical History / Comment(s): HX OF PROSTATE CA, HX SKIN CA ON FOREHEAD History of Any Multi-Drug Resistant Organisms: None Reported Past Surgical History: Heart Catheterization With Stent, Joint Replacement, Prostate Surgery Additional Past Surgical History / Comment(s): STENT X2, LEFT KNEE REPLACEMENT, RT/LT EYE CAT SX, RADIATION TO PROSTATE Past Anesthesia/Blood Transfusion Reactions: Postoperative Nausea & Vomiting (PONV) Date of Last Stent Placement:: UNKNOWN Past Psychological History: No Psychological Hx Reported Smoking Status: Former smoker Past Alcohol Use History: Occasional Past Drug Use History: None Reported Medications and Allergies Home Medications Medication Instructions Recorded Confirmed Type lisinopriL [Zestril] 5 mg PO BID 12/17/15 11/06/20 History Apixaban [Eliquis] 2.5 mg PO BID 11/06/20 11/06/20 History Solifenacin Succinate [Vesicare] 5 mg PO DAILY 11/06/20 11/06/20 History Tamsulosin HCl [Flomax] 0.4 mg PO DAILY 11/06/20 11/06/20 History Aspirin 81 mg PO DAILY 90 Days #90 chew 11/08/20 Rx Atorvastatin [Lipitor] 80 mg PO HS 90 Days #90 tab 11/08/20 Rx Clopidogrel [Plavix] 75 mg PO DAILY 90 Days #90 tab 11/08/20 Rx atenoloL [Tenormin] 50 mg PO BID 90 Days #180 tab 11/08/20 Rx Allergies Allergy/AdvReac Type Severity Reaction Status Date / Time No Known Allergies Allergy Verified 12/17/15 10:32 Physical Examination - Vital Signs Vital Signs: Vital Signs Temp Pulse Pulse Resp BP BP Pulse Ox 11/09/20 09:00 89 24 137/72 95 11/09/20 08:00 98.4 F 89 20 139/72 95 11/09/20 07:00 82 22 140/68 11/09/20 06:00 84 25 H 115/85 97 11/09/20 05:00 82 16 124/67 98 11/09/20 04:00 98.8 F 81 18 134/64 95 11/09/20 03:00 79 14 125/68 95 11/09/20 02:00 81 10 L 117/70 96 11/09/20 01:00 80 18 124/69 95 11/09/20 00:00 98.8 F 85 16 125/67 96 11/08/20 23:18 80 17 11/08/20 23:00 77 13 103/49 96 11/08/20 22:00 79 17 120/66 94 L 11/08/20 21:00 80 15 118/68 95 11/08/20 20:00 98.2 F 78 17 123/69 95 11/08/20 19:00 79 17 123/69 95 11/08/20 18:00 82 18 112/70 96 11/08/20 17:30 80 17 104/64 96 11/08/20 16:00 99.2 F 81 17 100/57 95 11/08/20 15:30 97.5 F L 81 15 90/78 94 L 11/08/20 12:00 97.6 F 79 16 108/60 99 Intake and Output 11/08/20 11/09/20 11/09/20 22:59 06:59 14:59 Intake Total 280 320 40 Output Total 415 570 40 Balance -135 -250 0 Intake: IV 280 320 40 Sodium Chloride 0.9% 1, 280 320 40 000 ml @ 40 mls/hr IV . Q24H [facility] Rx#:[id number] Output: Urine 415 570 40 Other: Voiding Method Indwelling Catheter Indwelling Catheter Weight 120.1 kg GENERAL: The patient is lying in bed and is not in acute distress. CHEST: The heart rate is regular rate rhythm. No murmurs to auscultation. LUNG: Clear to auscultation bilaterally and seems to be tachypneic and is whe ezing throughout. ABDOMEN/GI: Bowel sounds present in all 4 quadrants. No tenderness to palpation throughout. NEUROLOGICAL: Higher mental function: The patient is awake, alert, oriented to self, place and time. Patient is following commands. No aphasia and no neglect. Cranial nerves: The pupils are round, equal and reactive to light and accommodation. Visual phipps are full to confrontation throughout. Extraocular movement is intact no nystagmus is noted. Facial sensation is normal to touch throughout. The facial strength is normal throughout. Hearing is normal bilaterally to hand rub. Tongue is midline and moved [id number] without any difficulty. No dysarthria is noted. Shoulder shrug is normal bilaterally. Motor: Gait is deferred. The strength is 5 over 5 throughout. Normal tone and bulk. Cerebellum: Normal finger to nose heel to jones bilaterally. Sensation: Sensation is normal to touch throughout. Reflexes (right/left): 2+ in bilateral upper while 1+ in lowers. Plantars are downgoing bilaterally. Results THe sodium is 134 was mildly low. The glucose has been in the range of 150s to 190s. AST initially of 104 but the repeated a 70. ALT of 38 which is normal. Troponin is 4.09 Calcium is 8.9 which is normal Magnesium is 1.9 which is normal His serum glucose that's recorded in our facility has been the range of 100 to 1 80s. Last PTT is 40.6 and INR is 1.0. Blair virus is nondetected. - Laboratory Findings CBC and BMP: 11/09/20 03:31 11/09/20 03:31 Abnormal Lab Findings: Abnormal Labs 11/06/20 11/06/20 11/06/20 17:50 17:50 17:50 RBC 3.63 L Hgb 12.2 L Hct 36.6 L MCV 100.8 H MCH Lymphocytes # APTT 73.9 H ABG pH ABG pCO2 ABG pO2 ABG HCO3 ABG Total CO2 ABG O2 Saturation Sodium Carbon Dioxide BUN 27 H Glucose 151 H POC Glucose (mg/dL) Plasma Lactic Acid Julien AST 104 H Troponin I Total Protein Urine Protein Urine Blood Urine RBC Urine WBC Urine Mucus 11/06/20 11/06/20 11/06/20 17:50 20:27 22:20 RBC Hgb Hct MCV MCH Lymphocytes # APTT ABG pH ABG pCO2 ABG pO2 ABG HCO3 ABG Total CO2 ABG O2 Saturation Sodium Carbon Dioxide BUN Glucose POC Glucose (mg/dL) Plasma Lactic Acid Julien AST Troponin I 12.700 H* 11.200 H* Total Protein Urine Protein Trace H Urine Blood Moderate H Urine RBC 132 H Urine WBC 9 H Urine Mucus Rare H 11/07/20 11/07/20 11/07/20 00:12 01:11 08:26 RBC 3.47 L Hgb 11.7 L Hct 35.4 L MCV 102.1 H MCH Lymphocytes # APTT 39.7 H ABG pH ABG pCO2 ABG pO2 ABG HCO3 ABG Total CO2 ABG O2 Saturation Sodium Carbon Dioxide BUN Glucose POC Glucose (mg/dL) Plasma Lactic Acid Julien AST Troponin I 10.200 H* Total Protein Urine Protein Urine Blood Urine RBC Urine WBC Urine Mucus 11/07/20 11/07/20 11/08/20 08:26 08:26 06:56 RBC 3.38 L Hgb 11.9 L Hct 34.8 L MCV 103.1 H MCH 35.1 H Lymphocytes # 0.7 L APTT 40.6 H ABG pH ABG pCO2 ABG pO2 ABG HCO3 ABG Total CO2 ABG O2 Saturation Sodium Carbon Dioxide BUN 24 H Glucose 133 H POC Glucose (mg/dL) Plasma Lactic Acid Julien AST Troponin I Total Protein Urine Protein Urine Blood Urine RBC Urine WBC Urine Mucus 11/08/20 11/08/20 11/08/20 06:56 13:16 13:25 RBC 3.12 L Hgb 10.9 L Hct 32.2 L MCV 103.3 H MCH Lymphocytes # APTT ABG pH ABG pCO2 ABG pO2 ABG HCO3 ABG Total CO2 ABG O2 Saturation Sodium 136 L Carbon Dioxide BUN 30 H Glucose 107 H POC Glucose (mg/dL) 152 H Plasma Lactic Acid Julien AST Troponin I Total Protein Urine Protein Urine Blood Urine RBC Urine WBC Urine Mucus 11/08/20 11/08/20 11/08/20 13:25 13:25 13:25 RBC Hgb Hct MCV MCH Lymphocytes # APTT ABG pH ABG pCO2 ABG pO2 ABG HCO3 ABG Total CO2 ABG O2 Saturation Sodium 134 L Carbon Dioxide 21 L BUN 31 H Glucose 187 H POC Glucose (mg/dL) Plasma Lactic Acid Julien 3.7 H* AST 70 H Troponin I 4.400 H* Total Protein 6.2 L Urine Protein Urine Blood Urine RBC Urine WBC Urine Mucus 11/08/20 11/08/20 11/08/20 15:15 15:47 17:00 RBC Hgb Hct MCV MCH Lymphocytes # APTT ABG pH 7.34 L ABG pCO2 48 H ABG pO2 29 L* ABG HCO3 26 H ABG Total CO2 27 H ABG O2 Saturation 48.3 L Sodium Carbon Dioxide BUN Glucose POC Glucose (mg/dL) 192 H Plasma Lactic Acid Julien AST Troponin I 4.090 H* Total Protein Urine Protein Urine Blood Urine RBC Urine WBC Urine Mucus 11/08/20 11/09/20 11/09/20 18:12 03:31 03:31 RBC 3.13 L Hgb 10.8 L Hct 32.2 L MCV 103.0 H MCH Lymphocytes # APTT ABG pH ABG pCO2 ABG pO2 ABG HCO3 ABG Total CO2 ABG O2 Saturation Sodium 134 L Carbon Dioxide BUN 30 H Glucose 114 H POC Glucose (mg/dL) 160 H Plasma Lactic Acid Julien AST Troponin I Total Protein Urine Protein Urine Blood Urine RBC Urine WBC Urine Mucus 11/09/20 06:54 RBC Hgb Hct MCV MCH Lymphocytes # APTT ABG pH ABG pCO2 ABG pO2 ABG HCO3 ABG Total CO2 ABG O2 Saturation Sodium Carbon Dioxide BUN Glucose POC Glucose (mg/dL) 153 H Plasma Lactic Acid Julien AST Troponin I Total Protein Urine Protein Urine Blood Urine RBC Urine WBC Urine Mucus Assessment and Plan Assessment: This is an 85-year-old gentleman with multiple medical problems that presented for chest pain and had cardiac cath which shows coronary artery disease in which she had stenting. Per cardiology notes stated that when the patient the was coming back from the bathroom on he was found to have right facial droop and left sided shaken and he lost consciousness he was bradycardic heart rate in the 50s and loss pulse 43.2 seconds in which CPR was initiated. This right facial droop with some shakiness in the left side in which she had bradycardia then cardiac positive leading to CPR for <2 minutes. Episode seems more vagal (vasovagal vs possibly orthostatic). It is unlikely seizure. Acute non-STEMI status post stenting with initial cath done on 11/07/2020 Patient has status post redo cardiac cath on 11/08/2020 revealing patent stent to the RCA Peripheral vascular disease with diminished pulses in lower extremity bilater ally Slight elevated AST--trending down Hypertension Hyperlipidemia Plan: A CT of the head on 11/08/20 was done and is reported as cerebral atrophy and hydrocephalus. No acute intracranial abnormality. Upon reviewing the CT of the head personally I do not see any acute subacute ischemia or a do not see any intraparenchymal hemorrhage. Regarding this reporting of hydrocephalus, the patient has generalized atrophy, so this hydrocephalus seems dilated but seems normal for that the generalized atrophy in my opinion. I ordered a routine EEG. I will not start the patient on antiepileptic unless there is epileptiform discharges or seizure and EEG I ordered orthostatic vitals once. Currently the patient is on aspirin 81 mg, Plavix 75 mg and Lipitor 80 mg per cardiology recommendation. We'll defer the rest of the cardiac management to cardiac team. We'll also defer the rest of the medical management to the primary team as well as ICU team Plan was discussed with the patient as well as the patient's nurse. Thank you for the consultation. UPDATE: EEG was performed today and preliminary report was normal. There are no focal slowing, or discharge or seizure in the EEG. No further work-up needed from a neurology stand point. Joel Cortez M.D. Neuro-hospitalist Time with Patient: Greater than 30
[2020-11-09 11:41] LABS: Glucose,Whole Blood 161 mg/dL (75-99)
[2020-11-09] MEDS: polyethylene glycoL 3350 17 GM POWD.PACK PO SCH (12:35)
--- NOTE | 2020-11-09 16:24 | EEG ---
ELECTROENCEPHALOGRAM REPORT DATE OF SERVICE: 11/09/2020 CLINICAL HISTORY: This is an 85-year-old gentleman who had an episode of brief left upper extremity jerking. The video EEG is obtained to evaluate for seizure and epileptiform activity. RELEVANT MEDICATION: Patient is not on any antiepileptic drugs. DESCRIPTION: Wakefulness is only obtained. During wakefulness, there is a posterior dominant rhythm of low to moderate voltage, reactive, well modulated, of 8-8.5 hertz activity. There is no physiological stage 2 sleep. There is no focal slowing seen. Interictal and ictal is none. ACTIVATION PROCEDURE: Photic stimulation did not evoke a posterior driving response. There is no photic abnormality seen during the photic stimulation. Hyperventilation was not performed. CLINICAL INTERPRETATION: This is a normal routine EEG. There are no focal slowing, epileptiform discharge or seizure on the EEG. Clinical correlation is recommended. VIDAL / PASCUAL: [id number] / MTDD
[2020-11-09 16:35] LABS: Glucose,Whole Blood 174 mg/dL (75-99)
[2020-11-09] MEDS ORDERED: HYDROcodone/APAP 5-325MG 1 EACH TAB PO PRN (16:51)
--- NOTE | 2020-11-09 18:28 | PN ---
PROGRESS NOTE DATE OF SERVICE: 11/09/2020 This 85-year-old gentleman admitted with acute myocardial infarction underwent cardiac catheterization and stenting also. The patient had yesterday an episode of syncope with bradycardia and the patient underwent cardiac CPR. The patient complaining of some chest pain today. Patient being closely monitored. Repeat cardiac cath did not show any acute abnormality and the stents were patent. The chest x-ray showed some bilateral atelectasis. Patient being closely monitored in ICU. Multiple consultants including Dr. Varela and Cardiology following the patient closely. No chest pain. No palpitations. No fever. Past medical history reviewed. REVIEW OF SYSTEMS: CARDIOVASCULAR system: As mentioned earlier. RESPIRATORY: As mentioned earlier. GI: As mentioned earlier. : No dysuria. NERVOUS SYSTEM: No numbness or weakness. CURRENT MEDICATIONS: Maalox, Eliquis, aspirin, Lipitor, Atropine, Plavix, heparin and Zestril. PHYSICAL EXAMINATION: Patient is alert, oriented x3. Pulse 92, blood pressure 130/73, respiration 20, temperature 98 degrees, pulse ox 96% on 2 L. HEENT: Conjunctivae normal. Oral mucosa moist. NECK is no jugular venous distention. No carotid bruit. No lymph node enlargement. CARDIOVASCULAR systems: S1, S2 muffled. RESPIRATION: Breath sounds diminished in the bases. No rhonchi. No crackles. ABDOMEN: Soft, obese. Nontender. LEGS: No edema. No swelling. NERVOUS SYSTEM: No focal deficits. LABS: WBC 8.3, hemoglobin 10.8. Otherwise sodium 135. ASSESSMENT: 1. 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 2. Status post syncope and bradycardia and CPR. 3. Repeat cardiac cath showing a patent stent. 4. Elevated AST. 5. Anemia of chronic disease. 6. Heparin monitoring. 7. History of coronary artery disease/ stent. 8. Hypertension. 9. Hyperlipidemia. 10.History of prostate cancer. 11.History of skin cancer. 12.History of degenerative joint disease. 13.Remote history of nicotine dependence. 14.Obesity with body mass index of 38. 15.FULL CODE with instructions. RECOMMENDATIONS AND DISCUSSION: Recommend to continue current medications, symptomatic treatment. Otherwise, at this time, continue with antiplatelet agents. Repeat labs. Incentive spirometry. Continue the other medication including Lipitor. Symptomatic treatment for the pain. The prognosis guarded because of multiple complex medical issues. Further recommendations to follow. Discussed with the patient and family at the bedside. Closely follow with multiple consultants. Patient monitored in ICU. VIDAL / CADENCEN: [id number] / GONZALO
[2020-11-09] MEDS: IPRATROPIUM-ALBUTEROL 3 ML NEB INHALATION PRN (19:37)
[2020-11-09] MEDS: ATORVASTATIN 80 MG TAB PO SCH ×2 (19:58→19:59)
[2020-11-10 04:18] LABS: Calcium 8.7 mg/dL (8.4-10.2); Potassium 4.4 mmol/L (3.5-5.1)
[2020-11-10] MEDS: PANTOPRAZOLE 40 MG TABLET PO SCH (06:38)
[2020-11-10 06:41] LABS: Glucose,Whole Blood 148 mg/dL (75-99)
--- NOTE | 2020-11-10 07:45 | XR ---
EXAMINATION TYPE: XR chest 1V portable DATE OF EXAM: 11/10/2020 COMPARISON: Chest x-ray 11/09/2020 HISTORY: Shortness of breath TECHNIQUE: Single frontal view of the chest is obtained. FINDINGS: Findings are similar to prior exam. Right hemidiaphragm remains elevated, cardiac mediasti nal silhouette is stable. Patchy bibasilar density is noted. There is no evident pneumothorax. The ao rta is dense. There are overlying leads. IMPRESSION: Correlate for basilar atelectasis, pneumonia, follow-up PA and lateral chest x-ray when stable.
--- NOTE | 2020-11-10 08:02 | P.PN ---
Subjective Progress Note Date: 11/10/20 This is an 85-year-old male patient got transferred to the intensive care unit after a cardiac event requiring another cardiac catheterization that was done this afternoon following that the patient was brought into the intensive care unit. The patient is known to have coronary artery disease. He was Hospital as forany period he was taken to the cardiac catheterization lab yesterday he underwent a cardiac catheterization and he ended up having stenting of the RCA. Note that he also had disease involving the circumflex in the order of 70-80%. The right coronary artery was thought to be dominant and it was thought to be the culprit and based on that a stent was inserted in the mid RCA reducing and the lesion from 80% to 0%. The patient was in the medical floor and he acutely became unresponsive and CPR was initiated. I reviewed the code records. Apparently the patient was walking back from the bathroom and he became unresponsive and he had sinus bradycardia with a heart rate in the low 20s. He was currei and unresponsive. He received 2 rounds of CPR and he was given epinephrine and CPR was initiated and was given to her for a total of 2 minutes and subsequently there was recurrence within circulation and the patient regained back his consciousness. His blood pressure came at 158/98. The patient began having some emesis. He required no intubation. The patient was noted to have a 3.2 second part. Based on all this events, the patient underwent another cardiac catheterization and this was done by Dr. Fernandez and the cardiac catheterization revealed a patent RCA stent. No intervention was done and the patient was brought back to the intensive care unit. Echocardiogram that was done yesterday showed impairment of the LV function and the patient an ejection fraction of 30-35% in addition to anteroseptal and inferior hypokinesis and apical hypokinesis. RV was within normal limits. No other significant valvular abnormalities. I was told by Dr. Fernandez that the f illing pressure with elevated and has lived ventricular end-diastolic pressure was at around 30. His chest x-ray that was done earlier this morning showed cardiomegaly with some mild pulmonary vascular congestion. No airspace disease. No effusions. The right hemidiaphragm was slightly elevated. The patient was in the intensive care unit. The patient was awake and alert. The patient was hemodynamically stable. He was feeling any chest pain. The second cardiac catheterization was done through the right radial. The feet are cold and the pulses were diminished in lower extremities bilaterally. His creatinine was up to 1.23 from this morning and the rest of the blood work and electrodes were within normal limits. His lactic acid level was at 3.7 and the patient is currently on aspirin 325 mg by mouth daily, Plavix 75 mg by mouth daily, Eliquis 2.5 mg by mouth twice a day and he is awake. Is following commands. No focal neurological deficits. He is obese. Denies having any ch ronic lung disease. No asthma. No emphysema. No obstructive sleep apnea although he does have some features otherwise. His cardiac rhythm is sinus. He has had previous history of atrial fibrillation. No seizure activity. No history of any CVA. on 11/09/2020, the patient is awake and alert and hemodynamically stable. History of any chest pain and he did not have any further neurologic events or cardiovascular events overnight. His night was uneventful. Currently, he is in a sinus rhythm. Heart rate is in the mid 80s. He is on 2 L about 2 by nasal cannula and his pulse ox is 94%. His white cell count is at 8.3 with hemoglobin of 10.8. His renal function is stable and the creatinine is at 1.25 with a BUN of 30. His troponin peaked at 11.2and he is down trending and his troponins. He remains on aspirin. He remains on Plavix. He remains on Eliquis 2.5 mg by mouth twice a day.the CAT scan of the brain was essentially negative and the patient was found to have some STENCIL INSPECTOR atrophy. No acute abnormalities noted. A chest x-ray from today showed elevation of the right hemidiaphragm. Some cardiomegaly. Minimal pulmonary vascular congestion. No other acute abnormalities noted. His IV fluids running at KVO and he has been given Lasix by cardiology 1 dose, 40 mg IV push.. The patient overall is weak. He does have some abdominal distention and his last bowel movement was on 11/07/2020. No nausea. No vomiting. He has adequate pulses in lower extremities bilaterally. 11/10/2020, awake and alert and sitting up on a recliner. He is having some shortness of breath especially with activity. Overnight he was slightly confused and his morning is back to his baseline. Chest x-ray showing cardiomegaly with mild pulmonary vascular congestion. Note that the patient has CHF with impaired LV function and the filling pressures were quite high at a time of the catheterization. No chest pain. Cardiac rhythm is sinus. The patient is post stenting of the RCA. He was seen by neurology and an EEG was done that showed no acute abnormalities and there was evidence of any seizure focus and was essentially normal EEG and the CAT scan of the brain was also normal. Renal function shows a stable creatinine of 1.3 compared to yesterday and the rest of the electrolytes are also stable. Troponin peaked at 10.2 as mentioned yesterday. Remains on aspirin. Remains on Plavix. Remains on Eliquis 2.5 mg by mouth twice a day. The beta zeferino is still on hold and his heart rate has quite picked up and improved and his heart is currently ranging between 80-90. He is on 3 L of oxygen by nasal cannula with a pulse of 77%. He is on no diuretics. Orthostatics was performed yesterday and was negative. No abdominal distention. The incentive on the abdomen shows no evidence of any obstruction and there was normal abdominal gas pattern. Not had a bowel movement yet. He is essentially the same and he tells that he is chronically distended. At that was given Lasix by cardiology yesterday and he produced a liter of urine output immediately and the fluid balance over the past 24 hours has been essentially -145 mL. He is physically weak in all 4 extremities and he needs help to get around and he needs help to be moved to a bedside recliner. Objective - Vital Signs Vital signs: Vital Signs Temp 98 F 11/10/20 04:00 Pulse 85 11/10/20 07:00 Resp 20 11/10/20 07:00 BP 117/62 11/10/20 07:00 Pulse Ox 97 11/10/20 07:00 Intake & Output 11/09/20 11/10/20 11/10/20 18:59 06:59 18:59 Intake Total 1500 120 10 Output Total 1200 565 50 Balance 300 -445 -40 Weight 90.9 kg Intake: IV 180 120 10 Sodium Chloride 0.9% 1, 180 120 10 000 ml @ 40 mls/hr IV . Q24H [facility] Rx#:[id number] Oral 1320 Output: Urine 1200 565 50 Other: Voiding Method Indwelling Catheter Indwelling Catheter - Exam Gen. appearance awake and alert and he is following commands and answering questions. Not in acute respiratory distress at this point in time. He is hemodynamically stable. The patient is currently on 2 L of oxygen by nasal cannula. Head exam was generally normal. There was no scleral icterus or corneal arcus. Mucous membranes were moist. Neck was supple and without jugular venous distension, thyromegaly, or carotid bruits. Carotids were easily palpable bilaterally. There was no adenopathy. The patient is a Mallampati class IV. Lungs sounds are diminished bilaterally and there is no wheezes or rhonchi. Cardiac exam revealed the PMI to be normally situated and sized. The rhythm was regular and no extrasystoles were noted during several minutes of auscultation. The first and second heart sounds were normal and physiologic splitting of the second heart sound was noted. There were no murmurs, rubs, clicks, or gallops. Overall heart sounds are distant. Abdominal exam revealed normal bowel sounds. The abdomen was soft, non-tender, and without masses, organomegaly, or appreciable enlargement of the abdominal aorta. Extremities revealed diminished pulses in the feet bilaterally. Right it is colder than the left.. Pulses are hardly palpable in the dorsalis pedis and p osterior tibialis. Femoral pulses are present. No hematoma in the groin. Pulses are also present in the right upper extremity where his irregular cardiac catheterization was done. Neurologically, the patient is a bit sedated. He is arousable, comfortable alert and oriented 3 and moving all 4 extremities without any limitation. Pupils are equal and reactive to light. No facial asymmetry noted. - Labs CBC & Chem 7: 11/09/20 03:31 11/10/20 03:01 Labs: Abnormal Lab Results - Last 24 Hours (Table) 11/09/20 11/09/20 11/10/20 Range/Units 11:39 16:33 03:01 Sodium 134 L (137-145) mmol/L BUN 37 H (9-20) mg/dL Creatinine 1.31 H (0.66-1.25) mg/dL Glucose 157 H (74-99) mg/dL POC Glucose (mg/dL) 161 H 174 H (75-99) mg/dL 11/10/20 Range/Units 06:39 Sodium (137-145) mmol/L BUN (9-20) mg/dL Creatinine (0.66-1.25) mg/dL Glucose (74-99) mg/dL POC Glucose (mg/dL) 148 H (75-99) mg/dL Assessment and Plan Plan: 1 Acute non-STEMI. The patient underwent cardiac catheterization and he was found to have lesion in the circumflex and RCA. The culprit lesion was RCA and the patient underwent stenting with reduction of the stenosis from 80% down to 0%. He is postop day #2and his initial cardiac catheterization was done on 11/07/2020. 2 Status post redo cardiac catheterization on 11/08/2020 revealing patent stent to RCA 3 episode of unresponsiveness with bradycardia. Consider vagal reaction as the patient had lost consciousness and became bradycardic post use of bathroom. No acute neurologic event is suspected at this point in time. The patient is awake and alert and neurologically intact and is moving all 4 extremities without any limitation. No altered mentation at this point in time. The patient received CPR briefly for less than 2 minutes with return of smoking circulation.preventive vagal reaction. The patient's night was uneventful. The neurologic workup was negative. Orthostatics were negative. CAT scan of the brain was negative. EEG was negative. The patient is non-ready cardiac and his heart rate has improved and I think he can be started back on his beta zeferino. 4 peripheral vascular disease with diminished pulses in lower extremity is bilaterally, yet her palpable and the patient has warm extremities. No evidence of any hematoma post catheterization. 5 obesity with a BMI of 39.3 6 cardiomyopathy with ejection fraction of 30-35%, ischemic cardiomyopathy 7 history of prostate cancer 8 hypertension 9 hyperlipidemia 10 history of skin cancer 11 abdominal distention on changes in the flat film of the abdomen showed no acute abnormalities. He has a normal gas pattern. He was given MiraLAX yesterday. 12 episodes of delirium/confusion, this morning alert and awake and following commands and answering questions his neurologic exam is nonfocal. Plan Continue aspirin and Plavix for now post stent insertion. Consider restarting the patient's beta blockers again FiO2 has been weaned down to 2 L IV fluids KVO I don't think there is any need for further diuretics Watch for any signs of decompensated heart failure. Currently is on oxygen at 2 L per minute nasal cannula, wean off oxygen CAT scan of the brain was noted, EEG was noted Continue Eliquis. The patient is currently in a normal sinus rhythm. Does have history of paroxysmal atrial fibrillation Monitor mental status. Can be transferred out of the intensive care unit
[2020-11-10] MEDS: CLOPIDOGREL 75 MG TAB PO SCH (08:05)
[2020-11-10] MEDS: ASPIRIN 81 MG PO SCH (08:05)
[2020-11-10] MEDS: TAMSULOSIN 0.4 MG CAP.ER.24H PO SCH (08:05)
[2020-11-10] MEDS: MULTIVITAMINS, THERA 1 EACH TAB PO SCH (08:05)
[2020-11-10] MEDS: polyethylene glycoL 3350 17 GM POWD.PACK PO SCH (08:06)
[2020-11-10] MEDS: APIXABAN 2.5 MG TABLET PO SCH ×2 (08:06→20:06)
[2020-11-10] MEDS: TROSPIUM CHLORIDE 20 MG TABLET PO SCH (08:06)
[2020-11-10] MEDS: lisinopriL 5 MG TAB PO SCH ×2 (08:06→20:06)
--- NOTE | 2020-11-10 09:24 | P.PN ---
Subjective HPI: This is a pleasant 85-year-old male past medical history significant for persistent atrial fibrillation (diagnosed in June 2020 started on Eliquis) , coronary artery disease status post PCI with stent placement in the mid RCA and posterior left ventricular branch the distal RCA in 2002, hypertension, hyperlipidemia. He follows in the office with Dr. Cifuentes. We have been asked to see in consultation for chest pain. Patient is seen and examined That side. Patient sitting up in chair, in no acute distress. Patient stated chest pain started at 10 PM Wednesday night, patient see out to the bathroom and felt short of breath. He rates his pain 4 out of 10, describes dull right sided chest pain, non-radiating but felt pain in right axilla. Pain lasted about 6 hours, and was relieved. Patient went to bed and in the morning called his PCP who told him to go to the emergency department. Patient presented to [facility], troponin 13.3, patient was given 325 mg aspirin, started on a heparin drip and transferred to [facility] . Associated symptoms include shortness of breath. Patient denies palpitations, lower extremity edema, fatigue, weakness, lightheadedness, syncope. At this time patient does not endorse any chest pain or shortness of breath . Patient denies history of Diabetes, Stroke, [place], or Heart failure. Patients states he compliant with medication. Former smoker quit in 1984. Denies ETOH or illicit drug use. 11/07/20: Patient underwent cardiac catheterization with Dr. Cifuentes which revealed - RCA large dominant vessel, that was previous stented. 80% in-stent restenosis within the mid RCA. Stenting of proximal RCA with in-stent restenostic lesion with a drug eluting stent was performed by Dr. Rivera. 11/08/20: Patient seen and examined this morning, feeling well. However, endorses not sleeping well due to the hospital bed being uncomfortable and the hospital being noisy. Patient denies palpitations, lower extremity edema, fatigue, weakness, dizziness, lightheadedness, syncope. EKG reviewed this morning, patient in sinus rhythm HR 78, left axis deviation, slow R wave progression. Telemetry reviewed - Laboratory data reviewed, hemoglobin stable 11.9, WBC 8.6, Plt 167, sodium 136, K 4.9, sCr 1.24 (1.03 yesterday). Patient slightly hypotensive this morning asymptomatic blood pressure 102/53, heart rate 79, SpO2 98% on room air, afebrile 11/09/2020: Patient seen and examined. Patient had a CODE BLUE called yesterday after coming back from the bathroom and found to have initially right facial droop and some left shaking and loss of consciousness. Patient with some bradycardia with heart rates in the 50s including a 3.2 second pause, unclear if the bradycardic episode was the precipitating event or a vagal reaction to other process. Patient then had CPR performed and epinephrine given with ROSC and he was somewhat lethargic however slowly came back to. Patient was having profuse nausea and vomiting however denying any chest pain. Patient's EKG showed nonspecific ST depressions. Patient was taken back to the catheterization lab with a left heart catheterization showing unchanged CAD and patent stent in the RCA. Patient only received 25 g of fentanyl for some back pain during the procedure. Patient then was noted to have a similar episode when he was moved over to the stretcher from the Orthopaedic Technologist bed where his eyes began to go to the back of his head, he got pale and then flushed and became altered and only lasting approximately 5 seconds with mild shaking of bilateral upper extremities. Patient's heart rate was noted to be normal during this time. He then became nauseous with dry heaves. Came back to normal within a matter of a total of 60 seconds. Blood pressure was somewhat borderline and he was given 40 mL/h overnight. No further episodes overnight. He admits to some chest pain around the site of his chest compressions and some back pain. He admits to some shortness breath related to deep inspiration however is somewhat tachypnic exam. He had CT brain performed which showed cerebral atrophy and hydrocephalus however no acute intracranial abnormality. He also had a chest x-ray which showed basilar atelectasis and difficult to exclude interstitial edema, effusion or pneumonia. LVEDP was noted to be elevated during heart catheterization at 30. He denies any abdominal pain however has not had a bowel movement in the last few days. 11/10/20 Patient seen and examined. The patient without specific complaints. He states he did "lose a whole day "secondary to take and [place] for his chest pain from chest compressions. He denies any current chest pain or pressure. He was given Lasix with good urine output. Vital signs have been stable. No significant bradycardia. Patient underwent EEG which showed no significant seizure-like activity. PHYSICAL EXAMINATION CONSTITUTIONAL: Obese, chronically ill-appearing HEENT: Head is normocephalic. Pupils are equal, round. Sclerae anicteric. Mucous membranes of the mouth are moist. No JVD. No carotid bruit. CHEST EXAMINATION: Lungs are clear to auscultation. No chest wall tenderness is noted on palpation or with deep breathing. HEART EXAMINATION: Regular rate and rhythm. S1, S2 heard. No murmurs, gallops or rub. ABDOMEN: Soft, nontender. Positive bowel sounds. EXTREMITIES: 2+ peripheral pulses, no lower extremity edema and no calf tenderness. Right Femoral cath site- clean, dry, no redness/swelling, no bleeding NEUROLOGIC EXAMINATION: Patient is awake, alert and oriented x3. ASSESSMENT -NSTEMI -Coronary Artery Disease status post PCI of RCA with stent placement 11/07/20 -History of Hypertension -History of hyperlipidemia -Persistent atrial fibrillation -CODE BLUE, appears to have had loss of pulses and received CPR and epinephrine with ROSC after a few minutes. Additional seizure-like activity noted with initial right facial droop and left upper extremity movements. There was some bradycardic event noted around this time however not extremely bradycardic with heart rates in the 50s and only 3.2 second positive, questionable if this would be significant enough to cause prolonged altered mental status and code. Additionally patient had an episode in the Orthopaedic Technologist with brief altered mental status with normal heart rate. Bradycardic episode may have been vagal reaction to a neurologic process. - 3.2 second pause with Afib around the time of Code. Unclear if this precipitated vs suspect more of a vagal response to other process - Nausea and vomitting during code. Unclear etiology, improved - Seizure like activity, EEG normal - Cardiomyopathy out of proportion to CAD with prior EF 50-55% decreased to 30- 35% with NSTEMI RCA PCI - Borderline hypotension /, improved today - Acute on chronic systolic heart failure with LVEDP 30mmHg on [facility] 11/08 PLAN Unclear etiology of the events of 11/08. Patient with 2 episodes with initial 1 occurring after coming back from bathroom with seizure-like activity, loss of consciousness and apparent loss of pulses with CPR and epinephrine given. There was some bradycardia noted during this episode however repeat episode occurred in Orthopaedic Technologist which was less intense and less prolonged with normal sinus rhythm a nd no bradycardia noted during this time. Left heart catheterization showed patent stents. Patient having chest pain from his chest compressions however do not suspect ischemic etiology of patient's presentation 11/08. CT brain showed atrophy and hydrocephalus however no acute process. Neurology r ecommendations appreciated and no seizure-like activity noted on EEG. Patient's nausea has improved. Do not see enough evidence to support placing the pacemaker at this time. Events may have been related to a vagal episode with questionable loss of pulses. Patient profoundly weak and evaluate for possible rehab. Continue to monitor and possible discharge if remains stable in next 24-48 hours. Objective - Vital Signs Vital signs: Vital Signs Temp 98 F 11/10/20 04:00 Pulse 88 11/10/20 09:00 Resp 14 11/10/20 09:00 BP 127/71 11/10/20 09:00 Pulse Ox 97 11/10/20 09:00 Intake & Output 11/09/20 11/10/20 11/10/20 18:59 06:59 18:59 Intake Total 1500 120 10 Output Total 1200 565 50 Balance 300 -445 -40 Weight 90.9 kg Intake: IV 180 120 10 Sodium Chloride 0.9% 1, 180 120 10 000 ml @ 40 mls/hr IV . Q24H [facility] Rx#:[id number] Oral 1320 Output: Urine 1200 565 50 Other: Voiding Method Indwelling Catheter Indwelling Catheter Indwelling Catheter - Labs CBC & Chem 7: 11/09/20 03:31 11/10/20 03:01 Labs: Abnormal Lab Results - Last 24 Hours (Table) 11/09/20 11/09/20 11/10/20 Range/Units 11:39 16:33 03:01 Sodium 134 L (137-145) mmol/L BUN 37 H (9-20) mg/dL Creatinine 1.31 H (0.66-1.25) mg/dL Glucose 157 H (74-99) mg/dL POC Glucose (mg/dL) 161 H 174 H (75-99) mg/dL 11/10/20 Range/Units 06:39 Sodium (137-145) mmol/L BUN (9-20) mg/dL Creatinine (0.66-1.25) mg/dL Glucose (74-99) mg/dL POC Glucose (mg/dL) 148 H (75-99) mg/dL
[2020-11-10 10:45] LABS: Glucose,Whole Blood 165 mg/dL (75-99)
--- NOTE | 2020-11-10 12:25 | P.PN ---
Subjective Progress Note Date: 11/10/20 She was seen at bedside and that he stated that he feels that the same today compared to yesterday. He denies of any further episodes of jerk in or being told that he had episode loss consciousness. He continues to have shortness of breath. Otherwise denies any neurological complaints. Per the patient nurse he has not had any further seizure-like episodes. Per the patient's nurse and it was hard to get an orthostatic since the patient is very short of breath but she attempted to get one in which she was lying to sitting and that there was no decrease in the blood pressure systolic or diastolic more than 10 according to her. Objective - Vital Signs Vital signs: Vital Signs Temp 98 F 11/10/20 04:00 Pulse 88 11/10/20 09:00 Resp 14 11/10/20 09:00 BP 127/71 11/10/20 09:00 Pulse Ox 97 11/10/20 09:00 Intake & Output 11/09/20 11/10/20 11/10/20 18:59 06:59 18:59 Intake Total 1500 120 10 Output Total 1200 565 50 Balance 300 -445 -40 Weight 90.9 kg Intake: IV 180 120 10 Sodium Chloride 0.9% 1, 180 120 10 000 ml @ 40 mls/hr IV . Q24H [facility] Rx#:[id number] Oral 1320 Output: Urine 1200 565 50 Other: Voiding Method Indwelling Catheter Indwelling Catheter Indwelling Catheter - Exam GENERAL: The patient is lying in bed and is not in acute distress. NEUROLOGICAL: Higher mental function: The patient is awake, alert, oriented to self, place and time. Patient is following commands. No aphasia and no neglect. Cranial nerves: The pupils are round, equal and reactive to light and accommodation. Visual phipps are full to confrontation throughout. Extraocular movement is intact no nystagmus is noted. Facial sensation is normal to touch throughout. The facial strength is normal throughout. Hearing is normal bilaterally to hand rub. Tongue is midline and moved [id number] without any difficulty. No dysarthria is noted. Shoulder shrug is normal bilaterally. Motor: Gait is deferred. The strength is 5 over 5 throughout. Normal tone and bulk. Cerebellum: Normal finger to nose heel to jones bilaterally. Sensation: Sensation is normal to touch throughout. Reflexes (right/left): 2+ in bilateral upper while 1+ in lowers. Plantars are downgoing bilaterally. - Labs CBC & Chem 7: 11/09/20 03:31 11/10/20 03:01 Labs: Abnormal Lab Results - Last 24 Hours (Table) 11/09/20 11/10/20 11/10/20 Range/Units 16:33 03:01 06:39 Sodium 134 L (137-145) mmol/L BUN 37 H (9-20) mg/dL Creatinine 1.31 H (0.66-1.25) mg/dL Glucose 157 H (74-99) mg/dL POC Glucose (mg/dL) 174 H 148 H (75-99) mg/dL 11/10/20 Range/Units 10:43 Sodium (137-145) mmol/L BUN (9-20) mg/dL Creatinine (0.66-1.25) mg/dL Glucose (74-99) mg/dL POC Glucose (mg/dL) 165 H (75-99) mg/dL Assessment and Plan Assessment: This is an 85-year-old gentleman with multiple medical problems that presented for chest pain and had cardiac cath which shows coronary artery disease in which she had stenting. Per cardiology notes stated that when the patient the was coming back from the bathroom on he was found to have right facial droop and left sided shaken and he lost consciousness he was bradycardic heart rate in the 50s and loss pulse 43.2 seconds in which CPR was initiated. This right facial droop with some shakiness in the left side in which she had bradycardia then cardiac positive leading to CPR for <2 minutes. Episode seems more vagal (vasovagal vs possibly orthostatic). It is unlikely seizure. Acute non-STEMI status post stenting with initial cath done on 11/07/2020 Patient has status post redo cardiac cath on 11/08/2020 revealing patent stent to the RCA Peripheral vascular disease with diminished pulses in lower extremity bilaterally Slight elevated AST--trending down Hypertension Hyperlipidemia Plan: A CT of the head on 11/08/20 was done and is reported as cerebral atrophy and hydrocephalus. No acute intracranial abnormality. Upon reviewing the CT of the head personally I do not see any acute subacute ischemia or a do not see any intraparenchymal hemorrhage. Regarding this reporting of hydrocephalus, the patient has generalized atrophy, so this hydrocephalus seems dilated but seems normal for that the generalized atrophy in my opinion. Routine EEG on 11/09/2020: Normal. There are no focal slowing, epileptiform discharges or seizure in the EEG I ordered orthostatic vitals but was a heart to get them because of patient's severe shortness of breath Currently the patient is on aspirin 81 mg, Plavix 75 mg and Lipitor 80 mg per cardiology recommendation. We'll defer the rest of the cardiac management to cardiac team. We'll also defer the rest of the medical management to the primary team as well as ICU team Plan was discussed with the patient as well as the patient's nurse. If orthostatics are able to be done and the there is an abnormality seen please notify neurology. Also if orthostatics are positive cardiology can manage them. There is no further neurological workup needed. Neurology will sign off. Please reconsult if needed. Joel Cortez M.D. Neuro-hospitalist Time with Patient: Less than 30
[2020-11-10 16:11] LABS: Glucose,Whole Blood 251 mg/dL (75-99)
--- NOTE | 2020-11-10 17:44 | PN ---
PROGRESS NOTE DATE OF SERVICE: 11/10/2020 This 85-year-old gentleman who was admitted with acute myocardial infarction, underwent cardiac cath and stenting. Subsequently, the patient had episode of bradycardia and presyncopal episode. The patient received CPR. The patient had a repeat cardiac cath showed no evidence of any in-stent stenosis. Patient being closely monitored. The patient is complaining of chest pain, probably associated with cardiac catheterization. A chest x-ray was done today which was reviewed and showed some bilateral atelectasis. The patient is being closely followed with Dr. Varela as well as Cardiology and Neurology. PAST MEDICAL HISTORY: Reviewed. REVIEW OF SYSTEMS: CARDIOVASCULAR SYSTEM: As mentioned earlier. RESPIRATORY: As mentioned earlier. GI: As mentioned earlier. : No dysuria. NERVOUS SYSTEM: No numbness or weakness. CURRENT MEDICATIONS: Reviewed and include: Tylenol, [place], Maalox, Eliquis, aspirin, Lipitor, Atropine, Plavix, heparin, Zestril. Narcan, Nitrostat, Protonix, MiraLAX and Flomax. PHYSICAL EXAMINATION: Patient is alert and oriented times three. Pulse is 100. Blood pressure 132/60, respiration 20, temperature 98.2, pulse ox 94% on 2 L. HEENT: Conjunctivae normal. NECK: No JVD. CARDIOVASCULAR: S1, S2 muffled. RESPIRATORY SYSTEM: Breath sounds diminished at the bases. A few scattered rhonchi and crackles. ABDOMEN: Soft, nontender. LEGS are no edema, no swelling. NERVOUS SYSTEM: No focal deficits. LABS: Hemoglobin 10.8, sodium 134, potassium noted. Creatinine is 1.31. ASSESSMENT: 1. Chest pain possible acute vsv-JT-zibheit-elevation myocardial infarction with troponin 12.7, status post cardiac catheterization, [employer] and stenting of the proximal RCA with in-stent restenosis. 2. Status post syncope and bradycardia and CPR. 3. Repeat cardiac catheterization showing patent stents. 4. Anemia, normocytic. 5. Continued chest pain, possible CPR. 6. Elevated AST. 7. Anemia of chronic disease. 8. Heparin monitoring. 9. History of coronary artery disease, stent. 10.Hypertension. 11.Hyperlipidemia. 12.History of prostate cancer. 13.History of skin cancer. 14.History of degenerative joint disease. 15.Remote history of nicotine dependence. 16.Obesity with body mass index of 38. 17.FULL CODE with instructions. RECOMMENDATIONS AND DISCUSSION: Continue current medications, management and symptomatic treatment. I would recommend repeat labs and closely follow with multiple consultants. Prognosis guarded. Further recommendations to follow to follow. MMODL / IJN: [id number] /
[2020-11-10 18:35] LABS: Basophils % (A) 0 %; Eosinophils # (A) 0.2 k/uL (0-0.7); Eosinophils % (A) 2 %; HCT 32.5 % (39.0-53.0); HGB 11.2 gm/dL (13.0-17.5); Lymphocytes # (A) 0.9 k/uL (1.0-4.8); Lymphocytes % (A) 8 %; MCH 34.6 pg (25.0-35.0); MCHC 34.6 g/dL (31.0-37.0); Monocytes # (A) 1.1 k/uL (0-1.0); Monocytes % (A) 10 %; Neutrophils # (A) 8.9 k/uL (1.3-7.7); Neutrophils % (A) 79 %; Platelet Count 153 k/uL (150-450); RBC 3.25 m/uL (4.30-5.90); RDW 13.1 % (11.5-15.5); WBC 11.3 k/uL (3.8-10.6)
[2020-11-10] MEDS: ACETAMINOPHEN TAB 500 MG TAB PO PRN (20:05)
[2020-11-10] MEDS: ATORVASTATIN 80 MG TAB PO SCH (20:06)
[2020-11-10 20:16] LABS: Glucose,Whole Blood 186 mg/dL (75-99)
[2020-11-10] MEDS ORDERED: ALPRAZolam 0.25 MG TAB PO PRN (22:30)
[2020-11-10] MEDS: IPRATROPIUM-ALBUTEROL 3 ML NEB INHALATION PRN (23:53)
[2020-11-11] MEDS ORDERED: FUROSEMIDE 10 MG/ML 4 ML VIAL IV STA ×2 (00:35→17:23)
[2020-11-11 04:36] LABS: Basophils % (A) 0 %; Eosinophils # (A) 0.1 k/uL (0-0.7); Eosinophils % (A) 1 %; HCT 32.3 % (39.0-53.0); HGB 10.6 gm/dL (13.0-17.5); Lymphocytes # (A) 0.6 k/uL (1.0-4.8); Lymphocytes % (A) 6 %; MCH 33.4 pg (25.0-35.0); MCHC 32.7 g/dL (31.0-37.0); MCV 102.2 fL (80.0-100.0); Macrocytosis Slight; Mean Platelet Volume 8.3; Monocytes % (A) 11 %; Neutrophils # (A) 7.5 k/uL (1.3-7.7); Neutrophils % (A) 81 %; Platelet Count 183 k/uL (150-450); RBC 3.16 m/uL (4.30-5.90); RDW 12.9 % (11.5-15.5); WBC 9.2 k/uL (3.8-10.6)
[2020-11-11 04:54] LABS: Calcium 8.8 mg/dL (8.4-10.2); Potassium 4.5 mmol/L (3.5-5.1)
[2020-11-11 06:38] LABS: Glucose,Whole Blood 198 mg/dL (75-99)
[2020-11-11] MEDS: lisinopriL 5 MG TAB PO SCH ×2 (09:15→20:01)
[2020-11-11] MEDS: TAMSULOSIN 0.4 MG CAP.ER.24H PO SCH (09:15)
[2020-11-11] MEDS: APIXABAN 2.5 MG TABLET PO SCH ×2 (09:15→20:01)
[2020-11-11] MEDS: METOPROLOL TARTRATE 12.5 MG TAB PO SCH ×2 (09:15→20:01)
[2020-11-11] MEDS: TROSPIUM CHLORIDE 20 MG TABLET PO SCH (09:15)
[2020-11-11] MEDS: CLOPIDOGREL 75 MG TAB PO SCH (09:15)
[2020-11-11] MEDS: polyethylene glycoL 3350 17 GM POWD.PACK PO SCH (09:15)
[2020-11-11] MEDS: ASPIRIN 81 MG PO SCH (09:15)
[2020-11-11] MEDS: PANTOPRAZOLE 40 MG TABLET PO SCH (09:15)
[2020-11-11] MEDS: AMOXIC-POT CLAV 875-125MG 1 EACH TAB PO SCH ×2 (09:16→20:01)
[2020-11-11 11:32] LABS: Glucose,Whole Blood 242 mg/dL (75-99)
--- NOTE | 2020-11-11 11:39 | P.PN ---
Subjective Progress Note Date: 11/11/20 This is a 85-year-old gentleman with history of ischemic heart disease and stent placement and also an episode of CODE BLUE and bradycardia. Patient is still extremely weak and short of breath. He does have expiratory wheezes and rhonchi. He complaints of chest discomfort only when he takes it is breath or coughing. This seemed to be related to CPR. No Sigmund arrhythmias or bradycardia noted at this time. Patient is slightly tachycardic. We will start him back on metoprolol 12.5 mg by mouth twice a day and watch him carefully. Rest of the management will be continued Objective - Vital Signs Vital signs: Vital Signs Temp 97.8 F 11/11/20 08:00 Pulse 91 11/11/20 11:00 Resp 22 11/11/20 11:00 BP 100/78 11/11/20 08:00 Pulse Ox 94 L 11/11/20 11:00 Intake & Output 11/10/20 11/11/20 11/11/20 18:59 06:59 18:59 Intake Total 970 110 30 Output Total 525 830 95 Balance 445 -720 -65 Weight 116.8 kg Intake: IV 10 110 30 Sodium Chloride 0.9% 1, 10 000 ml @ 40 mls/hr IV . Q24H [facility] Rx#:[id number] kvo 110 30 Oral 960 Output: Urine 525 830 95 Other: Voiding Method Indwelling Catheter Indwelling Catheter Indwelling Catheter - Exam GENERAL EXAM: Patient is alert and oriented and doesn't appear to be in moderate respiratory distress. Appears to be weak HEENT: Normocephalic. Normal reaction of pupils, equal size, normal range of extraocular motion. No erythema or exudates in the throat. NECK: No masses, no nuchal rigidity. CHEST: No chest wall deformity. LUNGS: Diffuse expiratory wheezes HEART: S1 and S2 normal with no audible mumurs or gallops. Regular rhythm, femorals equal on both sides.. ABDOMEN: No hepatosplenomegaly, normal bowel sounds, no guarding or rigidity. SKIN: No rashes CENTRAL NERVOUS SYSTEM: No focal deficits. EXTREMITIES: No cyanosis, clubbing or edema. - Labs CBC & Chem 7: 11/11/20 03:42 11/11/20 03:42 Labs: Abnormal Lab Results - Last 24 Hours (Table) 0311/10/20 11/10/20 Range/Units 16:09 17:35 20:15 WBC 11.3 H (3.8-10.6) k/uL RBC 3.25 L (4.30-5.90) m/uL Hgb 11.2 L (13.0-17.5) gm/dL Hct 32.5 L (39.0-53.0) % MCV (80.0-100.0) fL Neutrophils # 8.9 H (1.3-7.7) k/uL Lymphocytes # 0.9 L (1.0-4.8) k/uL Monocytes # 1.1 H (0-1.0) k/uL Sodium (137-145) mmol/L BUN (9-20) mg/dL Glucose (74-99) mg/dL POC Glucose (mg/dL) 251 H 186 H (75-99) mg/dL 11/11/20 11/11/20 11/11/20 Range/Units 03:42 03:42 06:37 WBC (3.8-10.6) k/uL RBC 3.16 L (4.30-5.90) m/uL Hgb 10.6 L (13.0-17.5) gm/dL Hct 32.3 L (39.0-53.0) % MCV 102.2 H (80.0-100.0) fL Neutrophils # (1.3-7.7) k/uL Lymphocytes # 0.6 L (1.0-4.8) k/uL Monocytes # (0-1.0) k/uL Sodium 135 L (137-145) mmol/L BUN 34 H (9-20) mg/dL Glucose 197 H (74-99) mg/dL POC Glucose (mg/dL) 198 H (75-99) mg/dL 11/11/20 Range/Units 11:31 WBC (3.8-10.6) k/uL RBC (4.30-5.90) m/uL Hgb (13.0-17.5) gm/dL Hct (39.0-53.0) % MCV (80.0-100.0) fL Neutrophils # (1.3-7.7) k/uL Lymphocytes # (1.0-4.8) k/uL Monocytes # (0-1.0) k/uL Sodium (137-145) mmol/L BUN (9-20) mg/dL Glucose (74-99) mg/dL POC Glucose (mg/dL) 242 H (75-99) mg/dL Assessment and Plan (1) Acute non-ST elevation myocardial infarction (NSTEMI) Current Visit: Yes Status: Acute Code(s): I21.4 - NON-ST ELEVATION (NSTEMI) MYOCARDIAL INFARCTION SNOMED Code(s): 949635993 (2) History of hypertension Current Visit: Yes Status: Acute Code(s): Z86.79 - PERSONAL HISTORY OF OTHER DISEASES OF THE CIRCULATORY SYSTEM SNOMED Code(s): 532287738 (3) History of bradycardia Current Visit: Yes Status: Acute Code(s): Z87.898 - PERSONAL HISTORY OF OTHER SPECIFIED CONDITIONS SNOMED Code(s): 470651342584072 (4) Cardiomyopathy Current Visit: Yes Status: Acute Code(s): I42.9 - CARDIOMYOPATHY, UNSPECIFIED SNOMED Code(s): 24340440 (5) COPD (chronic obstructive pulmonary disease) Current Visit: Yes Status: Acute Code(s): J44.9 - CHRONIC OBSTRUCTIVE PULMO NARY DISEASE, UNSPECIFIED SNOMED Code(s): 13872806 Plan: Continue current medical therapy. Had metoprolol 12.5 mg by mouth twice a day. Monitor him closely for any bradycardia. Further recommendations depend upon clinical course.
[2020-11-11] MEDS: MULTIVITAMINS, THERA 1 EACH TAB PO SCH (11:52)
[2020-11-11] MEDS: INSULIN ASPART (NovoLOG) 100 UNIT/ML VIAL SQ SCH ×3 (11:53→20:02)
--- NOTE | 2020-11-11 13:13 | P.PN ---
Subjective Progress Note Date: 11/11/20 Principal diagnosis: Acute non-ST elevation myocardial infarction This is an 85-year-old male patient got transferred to the intensive care unit after a cardiac event requiring another cardiac catheterization that was done this afternoon following that the patient was brought into the intensive care unit. The patient is known to have coronary artery disease. He was Hospital as forany period he was taken to the cardiac catheterization lab yesterday he underwent a cardiac catheterization and he ended up having stenting of the RCA. Note that he also had disease involving the circumflex in the order of 70-80%. The right coronary artery was thought to be dominant and it was thought to be the culprit and based on that a stent was inserted in the mid RCA reducing and the lesion from 80% to 0%. The patient was in the medical floor and he acutely became unresponsive and CPR was initiated. I reviewed the code records. Apparently the patient was walking back from the bathroom and he became unresponsive and he had sinus bradycardia with a heart rate in the low 20s. He was currie and unresponsive. He received 2 rounds of CPR and he was given epinephrine and CPR was initiated and was given to her for a total of 2 minutes and subsequently there was recurrence within circulation and the patient regained back his consciousness. His blood pressure came at 158/98. The patient began having some emesis. He required no intubation. The patient was noted to have a 3.2 second part. Based on all this events, the patient underwent another cardiac catheterization and this was done by Dr. Fernandez and the cardiac catheterization revealed a patent RCA stent. No intervention was done and the patient was brought back to the intensive care unit. Echocardiogram that was done yesterday showed impairment of the LV function and the patient an ejection fraction of 30-35% in addition to anteroseptal and inferior hypokinesis and apical hypokinesis. RV was within normal limits. No other significant valvular abnormalities. I was told by Dr. Fernandez that the filling pressure with elevated and has lived ventricular end-diastolic pressure was at around 30. His chest x-ray that was done earlier this morning showed cardiomegaly with some mild pulmonary vascular congestion. No airspace disease. No effusions. The right hemidiaphragm was slightly elevated. The patient was in the intensive care unit. The patient was awake and alert. The patient was hemodynamically stable. He was feeling any chest pain. The second cardiac catheterization was done through the right radial. The feet are cold and the pulses were diminished in lower extremities bilaterally. His creatinine was up to 1.23 from this morning and the rest of the blood work and electrodes were within normal limits. His lactic acid level was at 3.7 and the patient is currently on aspirin 325 mg by mouth daily, Plavix 75 mg by mouth daily, Eliquis 2.5 mg by mouth twice a day and he is awake. Is following commands. No focal neurological deficits. He is obese. Denies having any chronic lung disease. No asthma. No emphysema. No obstructive sleep apnea although he does have some features otherwise. His cardiac rhythm is sinus. He has had previous history of atrial fibrillation. No seizure activity. No history of any CVA. on 11/09/2020, the patient is awake and alert and hemodynamically stable. History of any chest pain and he did not have any further neurologic events or c ardiovascular events overnight. His night was uneventful. Currently, he is in a sinus rhythm. Heart rate is in the mid 80s. He is on 2 L about 2 by nasal cannula and his pulse ox is 94%. His white cell count is at 8.3 with hemoglobin of 10.8. His renal function is stable and the creatinine is at 1.25 with a BUN of 30. His troponin peaked at 11.2and he is down trending and his troponins. He remains on aspirin. He remains on Plavix. He remains on Eliquis 2.5 mg by mouth twice a day.the CAT scan of the brain was essentially negative and the patient was found to have some HYDROLOGIST atrophy. No acute abnormalities noted. A chest x-ray from today showed elevation of the right hemidiaphragm. Some cardiomegaly. Minimal pulmonary vascular congestion. No other acute abnormalities noted. His IV fluids running at KVO and he has been given Lasix by cardiology 1 dose, 40 mg IV push.. The patient overall is weak. He does have some abdominal distention and his last bowel movement was on 11/07/2020. No nausea. No vomiting. He has adequate pulses in lower extremities bilaterally. 11/10/2020, awake and alert and sitting up on a recliner. He is having some shortness of breath especially with activity. Overnight he was slightly confused and his morning is back to his baseline. Chest x-ray showing cardiomegaly with mild pulmonary vascular congestion. Note that the patient has CHF with impaired LV function and the filling pressures were quite high at a time of the catheterization. No chest pain. Cardiac rhythm is sinus. The patient is post stenting of the RCA. He was seen by neurology and an EEG was done that showed no acute abnormalities and there was evidence of any seizure focus and was essentially normal EEG and the CAT scan of the brain was also normal. Renal function shows a stable creatinine of 1.3 compared to yesterday and the rest of the electrolytes are also stable. Troponin peaked at 10.2 as mentioned yesterday. Remains on aspirin. Remains on Plavix. Remains on Eliquis 2.5 mg by mouth twice a day. The beta zeferino is still on hold and his heart rate has quite picked up and improved and his heart is currently ranging between 80-90. He is on 3 L of oxygen by nasal cannula with a pulse of 77%. He is on no diuretics. Orthostatics was performed yesterday and was negative. No abdominal distention. The incentive on the abdomen shows no evidence of any obstruction and there was normal abdominal gas pattern. Not had a bowel movement yet. He is essentially the same and he tells that he is chronically distended. At that was given Lasix by cardiology yesterday and he produced a liter of urine output immediately and the fluid balance over the past 24 hours has been essentially -145 mL. He is physically weak in all 4 extremities and he needs help to get around and he needs help to be moved to a bedside recliner. Patient was reevaluated today on 11/11/2020, patient remains in the ICU as an overflow, he is on 4 L nasal cannula, IV fluid at [facility], received Lasix overnight 40 mg IV push, responded well with good urinary output. Chest x-ray this morning showed mild interstitial edema. Clinically however the patient is doing great, asymptomatic. Considering his history of possible aspiration, patient is now on Augmentin 875 twice a day. Labs were reviewed CBC is relatively normal index was abnormal BUN is 34 creatinine is 1.16. Plan to transfer the patient to [facility] once a bed is available. Objective - Vital Signs Vital signs: Vital Signs Temp 98.8 F 11/11/20 11:45 Pulse 99 11/11/20 11:45 Resp 22 11/11/20 11:45 BP 113/64 11/11/20 11:45 Pulse Ox 96 11/11/20 11:45 Intake & Output 11/10/20 11/11/20 11/11/20 18:59 06:59 18:59 Intake Total 970 110 30 Output Total 525 830 95 Balance 445 -720 -65 Weight 116.8 kg Intake: IV 10 110 30 Sodium Chloride 0.9% 1, 10 000 ml @ 40 mls/hr IV . Q24H [facility] Rx#:[id number] kvo 110 30 Oral 960 Output: Urine 525 830 95 Other: Voiding Method Indwelling Catheter Indwelling Catheter Indwelling Catheter - Exam Physical Exam: Revealed 85-year-old white male in no distress. On 4 L nasal cannula. Head: Atraumatic, normocephalic. HEENT:[Neck is supple.] [No neck masses.] [No thyromegaly.] [No JVD.] PERRLA, EOMI, nonicteric. Chest: [Symmetrical chest expansion, fine crackles at the bases, no rhonchi and no wheezes. Cardiac Exam: [Normal S1 and S2, no S3 gallop, no murmur.] Abdomen: [Soft, nontender, no megaly, no rebound, no guarding, normal bowel sounds.] Extremities: [No clubbing, no edema, no cyanosis.] Good pulses bilaterally. Neurological Exam: [No focal neurologic deficit.] Alert and oriented 3. Psychiatric: Normal mood, affect and normal mental status examination. Skin: No rashes. Musculoskeletal: No deformities and no limitation in range of motion - Labs CBC & Chem 7: 11/11/20 03:42 11/11/20 03:42 Labs: Abnormal Lab Results - Last 24 Hours (Table) 11/10/20 11/10/20 11/10/20 Range/Units 16:09 17:35 20:15 WBC 11.3 H (3.8-10.6) k/uL RBC 3.25 L (4.30-5.90) m/uL Hgb 11.2 L (13.0-17.5) gm/dL Hct 32.5 L (39.0-53.0) % MCV (80.0-100.0) fL Neutrophils # 8.9 H (1.3-7.7) k/uL Lymphocytes # 0.9 L (1.0-4.8) k/uL Monocytes # 1.1 H (0-1.0) k/uL Sodium (137-145) mmol/L BUN (9-20) mg/dL Glucose (74-99) mg/dL POC Glucose (mg/dL) 251 H 186 H (75-99) mg/dL 11/11/20 11/11/20 11/11/20 Range/Units 03:42 03:42 06:37 WBC (3.8-10.6) k/uL RBC 3.16 L (4.30-5.90) m/uL Hgb 10.6 L (13.0-17.5) gm/dL Hct 32.3 L (39.0-53.0) % MCV 102.2 H (80.0-100.0) fL Neutrophils # (1.3-7.7) k/uL Lymphocytes # 0.6 L (1.0-4.8) k/uL Monocytes # (0-1.0) k/uL Sodium 135 L (137-145) mmol/L BUN 34 H (9-20) mg/dL Glucose 197 H (74-99) mg/dL POC Glucose (mg/dL) 198 H (75-99) mg/dL 11/11/20 Range/Units 11:31 WBC (3.8-10.6) k/uL RBC (4.30-5.90) m/uL Hgb (13.0-17.5) gm/dL Hct (39.0-53.0) % MCV (80.0-100.0) fL Neutrophils # (1.3-7.7) k/uL Lymphocytes # (1.0-4.8) k/uL Monocytes # (0-1.0) k/uL Sodium (137-145) mmol/L BUN (9-20) mg/dL Glucose (74-99) mg/dL POC Glucose (mg/dL) 242 H (75-99) mg/dL Assessment and Plan Assessment: Impression: Acute non-ST elevation myocardial infarction, status post stenting of RCA on 11/2020. Status post redo cardiac catheterization on 11/08/2020 revealing patent stent to RCA. Unresponsiveness with bradycardia, exact etiology is not clear. Resolved. Peripheral vessel occlusive disease. Mostly affecting lower extremities. Ischemic cardiomyopathy and LV dysfunction with ejection fraction of 30-35%. Benign essential hypertension. Dyslipidemia. History of prostate cancer. Possible aspiration pneumonia. Paroxysmal atrial fibrillation. Recommendation: Continue aspirin and Plavix post stent placement. Added Augmentin for potential aspiration pneumonia, chest x-ray is suspicious however most of the findings are in the left lower lobe. Continue oxygen and titrate accordingly. Continue diuretics when necessary. Continue anticoagulation therapy/eliquis Continue GI and DVT prophylaxis. Advanced diet as tolerated. Transferred to a monitor bed on [facility] today if a bed becomes available. We'll continue to follow. Time with Patient: Less than 30
--- NOTE | 2020-11-11 14:34 | P.PN ---
Subjective Progress Note Date: 11/11/20 Patient was seen for a follow-up. Please refer to consultation note from Dr. Joel Cortez. Patient actually came to the hospital for chest pain. Patient underwent cardiac catheterization. After the cardiac cath, patient was going to the bathroom, when had a cardiac arrest with very short downtime of <5 minutes. There was some concern if patient had a seizure like activity with left arm jerking prior to the cardiac arrest. Patient actually bradycardia down in 20s before he had a cardiac arrest. CPR was performed and patient's rhythm came back. Patient has subsequently underwent computed tomography scan of the head, which showed cerebral atrophy and hydrocephalus. No acute process. It was felt the hydrocephalus is secondary to generalized atrophy. EEG was normal. Orthostatics were recommended. Patient at present was seen in the ICU, alert and awake in no distress. Denies any focal symptoms. Objective - Vital Signs Vital signs: Vital Signs Temp 98.8 F 11/11/20 11:45 Pulse 99 11/11/20 11:45 Resp 22 11/11/20 11:45 BP 113/64 11/11/20 11:45 Pulse Ox 96 11/11/20 11:45 Intake & Output 11/10/20 11/11/20 11/11/20 18:59 06:59 18:59 Intake Total 970 110 30 Output Total 525 830 95 Balance 445 -720 -65 Weight 116.8 kg Intake: IV 10 110 30 Sodium Chloride 0.9% 1, 10 000 ml @ 40 mls/hr IV . Q24H [facility] Rx#:[id number] kvo 110 30 Oral 960 Output: Urine 525 830 95 Other: Voiding Method Indwelling Catheter Indwelling Catheter Indwelling Catheter - Exam On examination patient is alert and awake. He is fully oriented, knows it is November 2020 and that is in [facility]. Speech and language functions are normal. Visual phipps are full, face is symmetric and muscle stre ngth is normal. No ataxia. Tone and bulk of muscles normal gait deferred. - Labs CBC & Chem 7: 11/12/20 03:21 11/12/20 03:21 Labs: Abnormal Lab Results - Last 24 Hours (Table) 11/10/20 11/10/20 11/10/20 Range/Units 16:09 17:35 20:15 WBC 11.3 H (3.8-10.6) k/uL RBC 3.25 L (4.30-5.90) m/uL Hgb 11.2 L (13.0-17.5) gm/dL Hct 32.5 L (39.0-53.0) % MCV (80.0-100.0) fL Neutrophils # 8.9 H (1.3-7.7) k/uL Lymphocytes # 0.9 L (1.0-4.8) k/uL Monocytes # 1.1 H (0-1.0) k/uL Sodium (137-145) mmol/L BUN (9-20) mg/dL Glucose (74-99) mg/dL POC Glucose (mg/dL) 251 H 186 H (75-99) mg/dL 11/11/20 11/11/20 11/11/20 Range/Units 03:42 03:42 06:37 WBC (3.8-10.6) k/uL RBC 3.16 L (4.30-5.90) m/uL Hgb 10.6 L (13.0-17.5) gm/dL Hct 32.3 L (39.0-53.0) % MCV 102.2 H (80.0-100.0) fL Neutrophils # (1.3-7.7) k/uL Lymphocytes # 0.6 L (1.0-4.8) k/uL Monocytes # (0-1.0) k/uL Sodium 135 L (137-145) mmol/L BUN 34 H (9-20) mg/dL Glucose 197 H (74-99) mg/dL POC Glucose (mg/dL) 198 H (75-99) mg/dL 11/11/20 Range/Units 11:31 WBC (3.8-10.6) k/uL RBC (4.30-5.90) m/uL Hgb (13.0-17.5) gm/dL Hct (39.0-53.0) % MCV (80.0-100.0) fL Neutrophils # (1.3-7.7) k/uL Lymphocytes # (1.0-4.8) k/uL Monocytes # (0-1.0) k/uL Sodium (137-145) mmol/L BUN (9-20) mg/dL Glucose (74-99) mg/dL POC Glucose (mg/dL) 242 H (75-99) mg/dL Assessment and Plan Assessment: * Status post cardiac arrest due to abbi-arrhythmia versus vasovagal with very short downtime. Patient's mentation is back to normal. No focal deficits noted. * Acute non-STEMI, status post cardiac cath 11/07/2020 patient had a redo cardiac cath on 11/08/2020 revealing patent stent to the RCA. * Peripheral vascular disease * Hypertension * Hyperlipidemia Plan: * 2-D echo revealed moderate to severely impaired EF 30-35%. Anteroseptal hypokinesis, inferior hypokinesis, apex hypokinesis. Left atrium is moderately dilated. * We will check carotid Doppler. * Patient currently onmApixaban 2.5 mg twice a day as well as dual antiplatelet medications per cardiology. * Consider holding one of antiplatelet, if possible. Patient on Protonix 40 mg. Addendum: Carotid Doppler revealed moderate to severe atherosclerotic change, right greater than left, but no significant stenosis, per radiologist report (under 50% stenosis). Antegrade flow in both vertebral arteries. Neurology will sign off. Please reconsult if any other concerns.
--- NOTE | 2020-11-11 15:37 | PN ---
PROGRESS NOTE DATE OF SERVICE: 11/11/2020 This 85-year-old gentleman admitted with acute [id number] elevation infarction underwent cardiac catheterization and stenting, with stenting of the RCA. The patient subsequently had a bout of unresponsiveness and was given CPR. Patient complaining of chest pain at this time, which is increasing with respirations. The patient also had a repeat cardiac catheterization which showed no evidence of any new stenosis. Please note that the initial stent was placed for in-stent restenosis. The patient is closely monitored. Aspiration pneumonia suspected. Patient started on antibiotics. Blood sugars will be monitored. PAST MEDICAL HISTORY: Reviewed. REVIEW OF SYSTEMS: CARDIOVASCULAR SYSTEM: As mentioned earlier. RESPIRATORY SYSTEM: As mentioned earlier. GI: As mentioned earlier. : No dysuria. NERVOUS SYSTEM: No numbness or weakness. MEDICATIONS: Current medications are reviewed and include: Tylenol p.r.n. [place], Maalox, DuoNeb, Augmentin, Eliquis, Lipitor, heparin, Zestril. Doses are reviewed. PHYSICAL EXAMINATION: Patient is alert and oriented x3. Pulse 99, blood pressure 113/64, respiration 22, temperature 98.8, pulse ox 96% on 2 L. HEENT: Conjunctivae normal. NECK: No jugular venous distention. CARDIOVASCULAR: S1, S2 muffled. RESPIRATORY: Breath sounds diminished at the bases. A few scattered rhonchi. ABDOMEN: Soft, obese, nontender. No mass palpable. LEGS: No edema, no swelling. NERVOUS SYSTEM: Higher function mentioned earlier. Moves all 4 limbs. No focal deficits. LYMPHATICS: No lymphadenopathy of the neck, axillae or groin. SKIN: No ulcer, rash or bleeding. JOINTS: No active deforming arthropathy. LABS: WBC 9.2, hemoglobin 10.6, sodium 135. ASSESSMENT: 1. Chest pain possible acute zwe-KP-[id number]-elevation myocardial infarction present on admission with troponin 12.7, status post cardiac catheterization and APPLICATIONS SUPPORT ANALYST stenting of the proximal RCA with in-stent restenosis. 2. Status post syncope and bradycardia and CPR. 3. Repeat cardiac catheterization showing patent stents. 4. Possible aspiration pneumonia. 5. Anemia, normocytic. 6. Continued chest pain, possibly secondary to CPR. 7. Elevated AST. 8. Anemia of chronic disease. 9. Heparin monitoring. 10.History of coronary artery disease, stent. 11.Hypertension. 12.Hyperlipidemia. 13.History of prostate cancer. 14.History of skin cancer. 15.History of degenerative joint disease. 16.Remote history of nicotine dependence. 17.Obesity with body mass index of 38. 18.FULL CODE with instructions. RECOMMENDATIONS AND DISCUSSION: Recommend to continue current medications, continue with symptomatic and conservative line of management. Otherwise, antibiotics per Pulmonary. Guarded prognosis because of multiple complex medical issues and further recommendations to follow. Incentive spirometry. MMODL / IJN: [id number] /
--- NOTE | 2020-11-11 16:39 | US ---
EXAMINATION TYPE: US carotid duplex BILAT DATE OF EXAM: 11/11/2020 COMPARISON: NONE CLINICAL HISTORY: Syncope. Weakness. Exam done portable EXAM MEASUREMENTS: RIGHT: Peak Systolic Velocity (PSV) cm/sec ----- Right CCA: 81.1 ----- Right ICA: 125.7 ----- Right ECA: 84.8 ICA/CCA ratio: 1.5 RIGHT: End Diastole cm/sec ----- Right CCA: 24.2 ----- Right ICA: 38.7 ----- Right ECA: 0.0 LEFT: Peak Systolic Velocity (PSV) cm/sec ----- Left CCA: 59.0 ----- Left ICA: 62.9 ----- Left ECA: 73.7 ICA/CCA ratio: 1.1 LEFT: End Diastole cm/sec ----- Left CCA: 15.0 ----- Left ICA: 18.9 ----- Left ECA: 9.0 VERTEBRALS (direction of flow): Right Vertebral: Antegrade Left Vertebral: Antegrade Rhythm: Normal Difficult and limited study due to patient body habitus and patient breathing heavily during exam Suboptimal study, moderate to severe plaque at right carotid bulb less prominent shadowing plaque lef t carotid bulb. Velocity measurements and ratios remain within normal limits on the left. Slightly in creased peak systolic velocity on the right. IMPRESSION: Moderate to severe atherosclerotic change right greater than left, hemodynamically signi ficant stenosis approaching but under 50% is thought present greater on the right. Criteria for Assigning % of Stenosis / Diameter reduction (Estimation based on the indirect measurements of the internal carotid artery velocities (ICA PSV). 1. Normal (no stenosis)=ICA PSV < 125 cm/s: ratio < 2.0: ICA EDV<40 cm/s. 2. Less than 50% stenosis=ICA PSV < 125 cm/s: ratio < 2.0: ICA EDV<40 cm/s. 3. 50 to 69% stenosis=ICA PSV of 125 to 230 cm/s: ration 2.0 ? 4.0: ICA EDV 40-100 cm/s. 4. Greater than 70% stenosis to near occlusion= ICA PSV > 230 cm/s: ratio > 4.0: ICA EDV > 100 cm/s. 5. Near occlusion= ICA PSV velocities may be low or undetectable: variable ratio and ICA EDV. 6. Total occlusion=unable to detect flow.
[2020-11-11 16:42] LABS: Glucose,Whole Blood 179 mg/dL (75-99)
[2020-11-11 19:54] LABS: Glucose,Whole Blood 176 mg/dL (75-99)
[2020-11-11] MEDS: ATORVASTATIN 80 MG TAB PO SCH (20:01)
[2020-11-12 04:23] LABS: Basophils % (A) 0 %; Eosinophils # (A) 0.2 k/uL (0-0.7); Eosinophils % (A) 2 %; HCT 30.7 % (39.0-53.0); HGB 10.1 gm/dL (13.0-17.5); Lymphocytes # (A) 0.8 k/uL (1.0-4.8); Lymphocytes % (A) 10 %; MCH 34.2 pg (25.0-35.0); MCV 103.7 fL (80.0-100.0); Macrocytosis Slight; Mean Platelet Volume 8.6; Monocytes # (A) 0.7 k/uL (0-1.0); Monocytes % (A) 9 %; Neutrophils # (A) 5.9 k/uL (1.3-7.7); Neutrophils % (A) 76 %; Platelet Count 180 k/uL (150-450); RBC 2.96 m/uL (4.30-5.90); RDW 12.3 % (11.5-15.5); WBC 7.8 k/uL (3.8-10.6)
[2020-11-12 04:41] LABS: Calcium 8.9 mg/dL (8.4-10.2); Potassium 4.5 mmol/L (3.5-5.1)
[2020-11-12 06:30] LABS: Glucose,Whole Blood 160 mg/dL (75-99)
[2020-11-12] MEDS: PANTOPRAZOLE 40 MG TABLET PO SCH (06:32)
[2020-11-12] MEDS: INSULIN ASPART (NovoLOG) 100 UNIT/ML VIAL SQ SCH ×4 (06:32→20:44)
[2020-11-12] MEDS: AMOXIC-POT CLAV 875-125MG 1 EACH TAB PO SCH ×2 (09:07→20:45)
[2020-11-12] MEDS: APIXABAN 2.5 MG TABLET PO SCH ×2 (09:07→20:45)
[2020-11-12] MEDS: METOPROLOL TARTRATE 12.5 MG TAB PO SCH ×2 (09:08→20:45)
[2020-11-12] MEDS: lisinopriL 5 MG TAB PO SCH ×2 (09:08→20:45)
[2020-11-12] MEDS: TROSPIUM CHLORIDE 20 MG TABLET PO SCH (09:08)
[2020-11-12] MEDS: ASPIRIN 81 MG PO SCH (09:08)
[2020-11-12] MEDS: TAMSULOSIN 0.4 MG CAP.ER.24H PO SCH (09:08)
[2020-11-12] MEDS: polyethylene glycoL 3350 17 GM POWD.PACK PO SCH (09:08)
[2020-11-12] MEDS: CLOPIDOGREL 75 MG TAB PO SCH (09:08)
--- NOTE | 2020-11-12 10:39 | XR ---
EXAMINATION TYPE: XR chest 1V portable DATE OF EXAM: 11/12/2020 COMPARISON: 11/10/2020 HISTORY: Shortness of breath TECHNIQUE: Single frontal view of the chest is obtained. FINDINGS: Patchy bilateral areas of infiltrate are seen with no evidence of pneumothorax. Arthropath y of the shoulders. No pleural effusion. Heart size stable. Atherosclerotic change aorta. IMPRESSION: Patchy bilateral infiltrate.
[2020-11-12 11:43] LABS: Glucose,Whole Blood 182 mg/dL (75-99)
--- NOTE | 2020-11-12 11:44 | P.PN ---
Subjective Progress Note Date: 11/12/20 This is a 85-year-old gentleman with history of ischemic heart disease and stent placement and also an episode of CODE BLUE and bradycardia. Patient is still extremely weak and short of breath. He does have expiratory wheezes and rhonchi. He complaints of chest discomfort only when he takes it is breath or coughing. This seemed to be related to CPR. No Sigmund arrhythmias or bradycardia noted at this time. Patient is slightly tachycardic. We will start him back on metoprolol 12.5 mg by mouth twice a day and watch him carefully. Rest of the management will be continued . 11/12/2020: This patient has remained relatively stable since yesterday. He is sitting up in the chair. Denies any chest pain. Doesn't appear to be in acute respiratory distress. His lungs show less wheezing today. He is on metoprolol small dose and tolerating well. No evidence and significant bradyarrhythmias. Patient carotid duplex study showed moderate to severe bilateral disease. Neurology is following him. From cardiac standpoint. He seemed to be relatively stable. He may be monitored telemetry unit today. Objective - Vital Signs Vital signs: Vital Signs Temp 97.9 F 11/12/20 08:00 Pulse 96 11/12/20 08:00 Resp 18 11/12/20 08:00 BP 99/68 11/12/20 08:00 Pulse Ox 94 L 11/12/20 04:00 Intake & Output 11/11/20 11/12/20 11/12/20 18:59 06:59 18:59 Intake Total 130 70 40 Output Total 570 375 175 Balance -440 -305 -135 Intake: IV 130 70 40 kvo 130 70 40 Output: Urine 570 375 175 Other: Voiding Method Indwelling Catheter Indwelling Catheter Indwelling Catheter - Exam GENERAL EXAM: Patient is alert and oriented and doesn't appear to be in moderate respiratory distress. Appears to be weak HEENT: Normocephalic. Normal reaction of pupils, equal size, normal range of extraocular motion. No erythema or exudates in the throat. NECK: No masses, no nuchal rigidity. CHEST: No chest wall deformity. LUNGS: Diffuse expiratory wheezes HEART: S1 and S2 normal with no audible mumurs or gallops. Regular rhythm, femorals equal on both sides.. ABDOMEN: No hepatosplenomegaly, normal bowel sounds, no guarding or rigidity. SKIN: No rashes CENTRAL NERVOUS SYSTEM: No focal deficits. EXTREMITIES: No cyanosis, clubbing or edema. - Labs CBC & Chem 7: 11/12/20 03:21 11/12/20 03:21 Labs: Abnormal Lab Results - Last 24 Hours (Table) 11/11/20 11/11/20 11/12/20 Range/Units 16:40 19:52 03:21 RBC 2.96 L (4.30-5.90) m/uL Hgb 10.1 L (13.0-17.5) gm/dL Hct 30.7 L (39.0-53.0) % MCV 103.7 H (80.0-100.0) fL Lymphocytes # 0.8 L (1.0-4.8) k/uL Sodium (137-145) mmol/L Chloride (98-107) mmol/L BUN (9-20) mg/dL Creatinine (0.66-1.25) mg/dL Glucose (74-99) mg/dL POC Glucose (mg/dL) 179 H 176 H (75-99) mg/dL 11/12/20 11/12/20 Range/Units 03:21 06:29 RBC (4.30-5.90) m/uL Hgb (13.0-17.5) gm/dL Hct (39.0-53.0) % MCV (80.0-100.0) fL Lymphocytes # (1.0-4.8) k/uL Sodium 135 L (137-145) mmol/L Chloride 97 L (98-107) mmol/L BUN 48 H (9-20) mg/dL Creatinine 1.33 H (0.66-1.25) mg/dL Glucose 170 H (74-99) mg/dL POC Glucose (mg/dL) 160 H (75-99) mg/dL Assessment and Plan (1) Acute non-ST elevation myocardial infarction (NSTEMI) Current Visit: Yes Status: Acute Code(s): I21.4 - NON-ST ELEVATION (NSTEMI) MYOCARDIAL INFARCTION SNOMED Code(s): 747231676 (2) History of hypertension Current Visit: Yes Status: Acute Code(s): Z86.79 - PERSONAL HISTORY OF OTHER DISEASES OF THE CIRCULATORY SYSTEM SNOMED Code(s): 809101316 (3) History of bradycardia Current Visit: Yes Status: Acute Code(s): Z87.898 - PERSONAL HISTORY OF OTHER SPECIFIED CONDITIONS SNOMED Code(s): 037161456998081 (4) Cardiomyopathy Current Visit: Yes Status: Acute Code(s): I42.9 - CARDIOMYOPATHY, UNSPECIFIED SNOMED Code(s): 09727358 (5) COPD (chronic obstructive pulmonary disease) Current Visit: Yes Status: Acute Code(s): J44.9 - CHRONIC OBSTRUCTIVE PU LMONARY DISEASE, UNSPECIFIED SNOMED Code(s): 29333113 Plan: Remains relatively stable. Denies any chest pain. No acute respiratory distress. Legs show less wheezing and rhonchi today. Transfer to telemetry and increase activity gradually. May need physical therapy
[2020-11-12] MEDS: MULTIVITAMINS, THERA 1 EACH TAB PO SCH (11:52)
--- NOTE | 2020-11-12 13:51 | P.PN ---
Subjective Progress Note Date: 11/12/20 Principal diagnosis: Acute non-ST elevation myocardial infarction This is an 85-year-old male patient got transferred to the intensive care unit after a cardiac event requiring another cardiac catheterization that was done this afternoon following that the patient was brought into the intensive care unit. The patient is known to have coronary artery disease. He was Hospital as forany period he was taken to the cardiac catheterization lab yesterday he underwent a cardiac catheterization and he ended up having stenting of the RCA. Note that he also had disease involving the circumflex in the order of 70-80%. The right coronary artery was thought to be dominant and it was thought to be the culprit and based on that a stent was inserted in the mid RCA reducing and the lesion from 80% to 0%. The patient was in the medical floor and he acutely became unresponsive and CPR was initiated. I reviewed the code records. Apparently the patient was walking back from the bathroom and he became unresponsive and he had sinus bradycardia with a heart rate in the low 20s. He was currie and unresponsive. He received 2 rounds of CPR and he was given epinephrine and CPR was initiated and was given to her for a total of 2 minutes and subsequently there was recurrence within circulation and the patient regained back his consciousness. His blood pressure came at 158/98. The patient began having some emesis. He required no intubation. The patient was noted to have a 3.2 second part. Based on all this events, the patient underwent another cardiac catheterization and this was done by Dr. Fernanedz and the cardiac catheterization revealed a patent RCA stent. No intervention was done and the patient was brought back to the intensive care unit. Echocardiogram that was done yesterday showed impairment of the LV function and the patient an ejection fraction of 30-35% in addition to anteroseptal and inferior hypokinesis and apical hypokinesis. RV was within normal limits. No other significant valvular abnormalities. I was told by Dr. Fernandez that the filling pressure with elevated and has lived ventricular end-diastolic pressure was at around 30. His chest x-ray that was done earlier this morning showed cardiomegaly with some mild pulmonary vascular congestion. No airspace disease. No effusions. The right hemidiaphragm was slightly elevated. The patient was in the intensive care unit. The patient was awake and alert. The patient was hemodynamically stable. He was feeling any chest pain. The second cardiac catheterization was done through the right radial. The feet are cold and the pulses were diminished in lower extremities bilaterally. His creatinine was up to 1.23 from this morning and the rest of the blood work and electrodes were within normal limits. His lactic acid level was at 3.7 and the patient is currently on aspirin 325 mg by mouth daily, Plavix 75 mg by mouth daily, Eliquis 2.5 mg by mouth twice a day and he is awake. Is following commands. No focal neurological deficits. He is obese. Denies having any chronic lung disease. No asthma. No emphysema. No obstructive sleep apnea although he does have some features otherwise. His cardiac rhythm is sinus. He has had previous history of atrial fibrillation. No seizure activity. No history of any CVA. on 11/09/2020, the patient is awake and alert and hemodynamically stable. History of any chest pain and he did not have any further neurologic events or c ardiovascular events overnight. His night was uneventful. Currently, he is in a sinus rhythm. Heart rate is in the mid 80s. He is on 2 L about 2 by nasal cannula and his pulse ox is 94%. His white cell count is at 8.3 with hemoglobin of 10.8. His renal function is stable and the creatinine is at 1.25 with a BUN of 30. His troponin peaked at 11.2and he is down trending and his troponins. He remains on aspirin. He remains on Plavix. He remains on Eliquis 2.5 mg by mouth twice a day.the CAT scan of the brain was essentially negative and the patient was found to have some [employer] atrophy. No acute abnormalities noted. A chest x-ray from today showed elevation of the right hemidiaphragm. Some cardiomegaly. Minimal pulmonary vascular congestion. No other acute abnormalities noted. His IV fluids running at KVO and he has been given Lasix by cardiology 1 dose, 40 mg IV push.. The patient overall is weak. He does have some abdominal distention and his last bowel movement was on 11/07/2020. No nausea. No vomiting. He has adequate pulses in lower extremities bilaterally. 11/10/2020, awake and alert and sitting up on a recliner. He is having some shortness of breath especially with activity. Overnight he was slightly confused and his morning is back to his baseline. Chest x-ray showing cardiomegaly with mild pulmonary vascular congestion. Note that the patient has CHF with impaired LV function and the filling pressures were quite high at a time of the catheterization. No chest pain. Cardiac rhythm is sinus. The patient is post stenting of the RCA. He was seen by neurology and an EEG was done that showed no acute abnormalities and there was evidence of any seizure focus and was essentially normal EEG and the CAT scan of the brain was also normal. Renal function shows a stable creatinine of 1.3 compared to yesterday and the rest of the electrolytes are also stable. Troponin peaked at 10.2 as mentioned yesterday. Remains on aspirin. Remains on Plavix. Remains on Eliquis 2.5 mg by mouth twice a day. The beta zeferino is still on hold and his heart rate has quite picked up and improved and his heart is currently ranging between 80-90. He is on 3 L of oxygen by nasal cannula with a pulse of 77%. He is on no diuretics. Orthostatics was performed yesterday and was negative. No abdominal distention. The incentive on the abdomen shows no evidence of any obstruction and there was normal abdominal gas pattern. Not had a bowel movement yet. He is essentially the same and he tells that he is chronically distended. At that was given Lasix by cardiology yesterday and he produced a liter of urine output immediately and the fluid balance over the past 24 hours has been essentially -145 mL. He is physically weak in all 4 extremities and he needs help to get around and he needs help to be moved to a bedside recliner. Patient was reevaluated today on 11/11/2020, patient remains in the ICU as an overflow, he is on 4 L nasal cannula, IV fluid at KVO, received Lasix overnight 40 mg IV push, responded well with good urinary output. Chest x-ray this morning showed mild interstitial edema. Clinically however the patient is doing great, asymptomatic. Considering his history of possible aspiration, patient is now on Augmentin 875 twice a day. Labs were reviewed CBC is relatively normal index was abnormal BUN is 34 creatinine is 1.16. Plan to transfer the patient to [facility] once a bed is available. Patient was seen today on 11/12/2020, remains in the ICU as an overflow, patient is doing well, relatively asymptomatic, on 2 L nasal cannula. His IV fluid at [facility], patient has not had a bowel movement hence will be given some lactulose. Chest x-ray minimal interstitial edema and left lower lobe atelectasis is noted. CBC is normal. Electrolytes are normal. BUN is 48 creatinine 1.33 Objective - Vital Signs Vital signs: Vital Signs Temp 97.9 F 11/12/20 08:00 Pulse 96 11/12/20 08:00 Resp 18 11/12/20 08:00 BP 99/68 11/12/20 08:00 Pulse Ox 94 L 11/12/20 04:00 Intake & Output 11/11/20 11/12/20 11/12/20 18:59 06:59 18:59 Intake Total 130 70 40 Output Total 570 375 175 Balance -440 -305 -135 Intake: IV 130 70 40 kvo 130 70 40 Output: Urine 570 375 175 Other: Voiding Method Indwelling Catheter Indwelling Catheter Indwelling Catheter - Exam Physical Exam: Revealed 85-year-old white male in no distress. On 2 L nasal cannula. Head: Atraumatic, normocephalic. HEENT:[Neck is supple.] [No neck masses.] [No thyromegaly.] [No JVD.] PERRLA, EOMI, nonicteric. Chest: [Symmetrical chest expansion, fine crackles at the bases, no rhonchi and no wheezes. Cardiac Exam: [Normal S1 and S2, no S3 gallop, no murmur.] Abdomen: [Soft, nontender, no megaly, no rebound, no guarding, normal bowel sounds.] Extremities: [No clubbing, no edema, no cyanosis.] Good pulses bilaterally. Neurological Exam: [No focal neurologic deficit.] Alert and oriented 3. Psychiatric: Normal mood, affect and normal mental status examination. Skin: No rashes. Musculoskeletal: No deformities and no limitation in range of motion - Labs CBC & Chem 7: 11/12/20 03:21 11/12/20 03:21 Labs: Abnormal Lab Results - Last 24 Hours (Table) 11/11/20 11/11/20 11/12/20 Range/Units 16:40 19:52 03:21 RBC 2.96 L (4.30-5.90) m/uL Hgb 10.1 L (13.0-17.5) gm/dL Hct 30.7 L (39.0-53.0) % MCV 103.7 H (80.0-100.0) fL Lymphocytes # 0.8 L (1.0-4.8) k/uL Sodium (137-145) mmol/L Chloride (98-107) mmol/L BUN (9-20) mg/dL Creatinine (0.66-1.25) mg/dL Glucose (74-99) mg/dL POC Glucose (mg/dL) 179 H 176 H (75-99) mg/dL 11/12/20 11/12/20 11/12/20 Range/Units 03:21 06:29 11:42 RBC (4.30-5.90) m/uL Hgb (13.0-17.5) gm/dL Hct (39.0-53.0) % MCV (80.0-100.0) fL Lymphocytes # (1.0-4.8) k/uL Sodium 135 L (137-145) mmol/L Chloride 97 L (98-107) mmol/L BUN 48 H (9-20) mg/dL Creatinine 1.33 H (0.66-1.25) mg/dL Glucose 170 H (74-99) mg/dL POC Glucose (mg/dL) 160 H 182 H (75-99) mg/dL Assessment and Plan Assessment: Impression: Acute non-ST elevation myocardial infarction, status post stenting of RCA on 11/2020. Status post redo cardiac catheterization on 11/08/2020 revealing patent stent to RCA. Unresponsiveness with bradycardia, exact etiology is not clear. Resolved. Peripheral vessel occlusive disease. Mostly affecting lower extremities. Ischemic cardiomyopathy and LV dysfunction with ejection fraction of 30-35%. Benign essential hypertension. Dyslipidemia. History of prostate cancer. Possible aspiration pneumonia. Paroxysmal atrial fibrillation. Recommendation: Continue aspirin and Plavix post stent placement. Continue Augmentin empirically. Continue oxygen and titrate accordingly. Continue diuretics when necessary. Continue anticoagulation therapy/eliquis Continue GI and DVT prophylaxis. Advanced diet as tolerated. Patient to transfer are the ICU once a bed is available on the cardiac floor. Time with Patient: Less than 30
--- NOTE | 2020-11-12 14:29 | PN ---
PROGRESS NOTE DATE OF SERVICE: 11/12/2020 This 85-year-old gentleman admitted with acute cwl-FN-jggklmg-elevation myocardial infarction had cardiac catheterization and stenting also. The patient had episodes of bradycardia and cardiac arrest and patient underwent CPR and the patient complaining of chest pain at this time. The chest x-ray which was reviewed personally by me showed patchy bibasilar infiltrate, possibility of aspiration pneumonia is also being considered. PAST MEDICAL HISTORY: Reviewed. REVIEW OF SYSTEMS: CARDIOVASCULAR SYSTEM: No angina. RESPIRATORY SYSTEM: As mentioned earlier. GI: As mentioned earlier. : No dysuria. NERVOUS SYSTEM: No numbness or weakness. CURRENT MEDICATIONS: Current medications are reviewed and include: Tylenol, Colstrip, Maalox, DuoNeb, Augmentin, Eliquis, aspirin, Lipitor, heparin, NovoLog, Cephulac, Lopressor, multivitamins, Zofran, Flomax, PHYSICAL EXAMINATION: The patient is alert and oriented x3. The pulse is 96, blood pressure 99/68, respiration 18, temperature 97.9, pulse ox 94% on 2 L. HEENT: Conjunctivae normal. NECK: No jugular venous distention. CARDIOVASCULAR: S1, S2 muffled. RESPIRATORY: Breath sounds diminished at the bases. A few scattered rhonchi and crackles. ABDOMEN: Soft, nontender. LEGS: No edema, no swelling. NERVOUS SYSTEM: No focal deficits. LABS: WBC 7.8, hemoglobin 10.1. Sodium is 135. Creatinine is 1.33. ASSESSMENT: 1. Chest pain possible acute qhs-WE-nnqthne-elevation myocardial infarction present on admission with troponin 12.7, status post cardiac catheterization and PNEUMATIC TUBE FITTER stenting of the proximal RCA with in-stent restenosis. 2. Status post syncope and bradycardia and CPR. 3. Repeat cardiac catheterization showing patent stents currently. 4. Possible aspiration pneumonia, bilateral. 5. Anemia, normocytic. 6. Continued chest pain possibly secondary to CPR. 7. Elevated AST. 8. Anemia of chronic disease. 9. Heparin monitoring. 10.History of coronary artery disease, stent. 11.Hypertension. 12.Hyperlipidemia. 13.History of prostate cancer. 14.History of skin cancer. 15.History of degenerative joint disease. 16.History of remote history of nicotine dependence. 17.Obesity with body mass index of 38. 18.FULL CODE with instructions. RECOMMENDATIONS AND DISCUSSION: Recommend to continue current medications, continue with monitoring and symptomatic treatment. Otherwise at this time I recommend to continue with current medication. Monitor creatinine closely. Avoid nephrotoxic medications. One dose of Lasix was given. Otherwise, overall prognosis guarded. PT, OT evaluation and await possible ECF rehab also. Further recommendations to follow. MMYESENIA / CADENCEN: [id number] / MTDD
[2020-11-12 15:10] LABS: Hemoglobin A1C 6.3 % (4.0-6.0)
[2020-11-12 16:44] LABS: Glucose,Whole Blood 174 mg/dL (75-99)
[2020-11-12] MEDS: LACTULOSE 20 GM/30 ML CUP PO SCH (18:55)
[2020-11-12 20:23] LABS: Glucose,Whole Blood 193 mg/dL (75-99)
[2020-11-12] MEDS: ATORVASTATIN 80 MG TAB PO SCH (20:45)
[2020-11-13] MEDS ORDERED: bisacodyL 10 MG SUPP RECTAL STA (03:31)
[2020-11-13 03:59] LABS: Basophils % (A) 0 %; Eosinophils # (A) 0.2 k/uL (0-0.7); Eosinophils % (A) 2 %; HCT 31.9 % (39.0-53.0); HGB 10.7 gm/dL (13.0-17.5); Lymphocytes # (A) 0.7 k/uL (1.0-4.8); Lymphocytes % (A) 10 %; MCH 34.4 pg (25.0-35.0); MCHC 33.4 g/dL (31.0-37.0); MCV 102.9 fL (80.0-100.0); Macrocytosis Slight; Mean Platelet Volume 8.6; Monocytes # (A) 0.7 k/uL (0-1.0); Monocytes % (A) 10 %; Neutrophils # (A) 5.5 k/uL (1.3-7.7); Neutrophils % (A) 76 %; Platelet Count 198 k/uL (150-450); RDW 12.1 % (11.5-15.5); WBC 7.2 k/uL (3.8-10.6)
[2020-11-13 04:17] LABS: Calcium 9.2 mg/dL (8.4-10.2); Potassium 4.7 mmol/L (3.5-5.1)
[2020-11-13 06:27] LABS: Glucose,Whole Blood 191 mg/dL (75-99)
[2020-11-13] MEDS: PANTOPRAZOLE 40 MG TABLET PO SCH (06:48)
[2020-11-13] MEDS: INSULIN ASPART (NovoLOG) 100 UNIT/ML VIAL SQ SCH ×4 (06:48→20:36)
[2020-11-13] MEDS: ASPIRIN 81 MG PO SCH (09:11)
[2020-11-13] MEDS: CLOPIDOGREL 75 MG TAB PO SCH (09:11)
[2020-11-13] MEDS: APIXABAN 2.5 MG TABLET PO SCH ×2 (09:11→20:36)
[2020-11-13] MEDS: METOPROLOL TARTRATE 12.5 MG TAB PO SCH ×2 (09:11→20:36)
[2020-11-13] MEDS: lisinopriL 5 MG TAB PO SCH (09:11)
[2020-11-13] MEDS: TAMSULOSIN 0.4 MG CAP.ER.24H PO SCH (09:11)
[2020-11-13] MEDS: AMOXIC-POT CLAV 875-125MG 1 EACH TAB PO SCH ×2 (09:11→20:58)
[2020-11-13] MEDS: polyethylene glycoL 3350 17 GM POWD.PACK PO SCH (09:12)
[2020-11-13] MEDS: TROSPIUM CHLORIDE 20 MG TABLET PO SCH (09:12)
[2020-11-13 11:47] LABS: Glucose,Whole Blood 245 mg/dL (75-99)
--- NOTE | 2020-11-13 12:15 | P.PN ---
Subjective Progress Note Date: 11/13/20 This is a 85-year-old gentleman with history of ischemic heart disease and stent placement and also an episode of CODE BLUE and bradycardia. Patient is still extremely weak and short of breath. He does have expiratory wheezes and rhonchi. He complaints of chest discomfort only when he takes it is breath or coughing. This seemed to be related to CPR. No Sigmund arrhythmias or bradycardia noted at this time. Patient is slightly tachycardic. We will start him back on metoprolol 12.5 mg by mouth twice a day and watch him carefully. Rest of the management will be continued . 11/12/2020: This patient has remained relatively stable since yesterday. He is sitting up in the chair. Denies any chest pain. Doesn't appear to be in acute respiratory distress. His lungs show less wheezing today. He is on metoprolol small dose and tolerating well. No evidence and significant bradyarrhythmias. Patient carotid duplex study showed moderate to severe bilateral disease. Neurology is following him. From cardiac standpoint. He seemed to be relatively stable. He may be monitored telemetry unit today. 11/13/2020: This patient remains relatively stable. Patient has been having some loose bowel movements. Denies any chest pain. He seemed to be frustrated that he is in the hospital for so long. Doesn't appear to be in acute respiratory distress. Patient is maintaining sinus rhythm with APCs. His blood pressure is fairly controlled. Lungs are clear. Heart is regular with skipped beats. Patient will continue current medical therapy. He may be transferred to selective care or rehab program , follow-up with KENDAL Rivera in the office Objective - Vital Signs Vital signs: Vital Signs Temp 98.1 F 11/13/20 03:41 Pulse 104 H 11/13/20 03:41 Resp 24 11/13/20 03:41 BP 126/73 11/13/20 03:41 Pulse Ox 93 L 11/13/20 03:41 Intake & Output 11/12/20 11/13/20 11/13/20 18:59 06:59 18:59 Intake Total 40 160 Output Total 175 875 Balance -135 -715 Intake: IV 40 160 kvo 40 160 Output: Urine 175 875 Other: Voiding Method Indwelling Catheter Indwelling Catheter - Exam GENERAL EXAM: Patient is alert and oriented and doesn't appear to be in moderate respiratory distress. Appears to be weak HEENT: Normocephalic. Normal reaction of pupils, equal size, normal range of extraocular motion. No erythema or exudates in the throat. NECK: No masses, no nuchal rigidity. CHEST: No chest wall deformity. LUNGS: Clear HEART: S1 and S2 normal with no audible mumurs or gallops. Regular rhythm, femorals equal on both sides.. ABDOMEN: No hepatosplenomegaly, normal bowel sounds, no guarding or rigidity. SKIN: No rashes CENTRAL NERVOUS SYSTEM: No focal deficits. EXTREMITIES: No cyanosis, clubbing or edema. - Labs CBC & Chem 7: 11/13/20 03:11/13/20 03:31 Labs: Abnormal Lab Results - Last 24 Hours (Table) 11/12/20 11/12/20 11/12/20 Range/Units 03: 16:43 20:21 RBC (4.30-5.90) m/uL Hgb (13.0-17.5) gm/dL Hct (39.0-53.0) % MCV (80.0-100.0) fL Lymphocytes # (1.0-4.8) k/uL Sodium (137-145) mmol/L BUN (9-20) mg/dL Glucose (74-99) mg/dL POC Glucose (mg/dL) 174 H 193 H (75-99) mg/dL Hemoglobin A1c 6.3 H (4.0-6.0) % 11/13/20 11/13/20 11/13/20 Range/Units 03:31 03:31 06:26 RBC 3.10 L (4.30-5.90) m/uL Hgb 10.7 L (13.0-17.5) gm/dL Hct 31.9 L (39.0-53.0) % MCV 102.9 H (80.0-100.0) fL Lymphocytes # 0.7 L (1.0-4.8) k/uL Sodium 135 L (137-145) mmol/L BUN 44 H (9-20) mg/dL Glucose 160 H (74-99) mg/dL POC Glucose (mg/dL) 191 H (75-99) mg/dL Hemoglobin A1c (4.0-6.0) % 03/10/21 Range/Units 11:46 RBC (4.30-5.90) m/uL Hgb (13.0-17.5) gm/dL Hct (39.0-53.0) % MCV (80.0-100.0) fL Lymphocytes # (1.0-4.8) k/uL Sodium (137-145) mmol/L BUN (9-20) mg/dL Glucose (74-99) mg/dL POC Glucose (mg/dL) 245 H (75-99) mg/dL Hemoglobin A1c (4.0-6.0) % Assessment and Plan (1) Acute non-ST elevation myocardial infarction (NSTEMI) Current Visit: Yes Status: Acute Code(s): I21.4 - NON-ST ELEVATION (NSTEMI) MYOCARDIAL INFARCTION SNOMED Code(s): 252226825 (2) History of hypertension Current Visit: Yes Status: Acute Code(s): Z86.79 - PERSONAL HISTORY OF OTHER DISEASES OF THE CIRCULATORY SYSTEM SNOMED Code(s): 170884442 (3) History of bradycardia Current Visit: Yes Status: Acute Code(s): Z87.898 - PERSONAL HISTORY OF OTHER SPECIFIED CONDITIONS SNOMED Code(s): 463842341648006 (4) Cardiomyopathy Current Visit: Yes Status: Acute Code(s): I42.9 - CARDIOMYOPATHY, UNSPECIFIED SNOMED Code(s): 99769175 (5) COPD (chronic obstructive pulmonary disease) Current Visit: Yes Status: Acute Code(s): J44.9 - CHRONIC OBSTRUCTIVE PULMONARY DISEASE, UNSPECIFIED SNOMED Code(s): 02629246 Plan: Patient seemed to be stable from cardiac standpoint. Continue current medical therapy. May be transferred to rehab program. Follow-up with Dr. KENDAL Rivera.
[2020-11-13] MEDS: MULTIVITAMINS, THERA 1 EACH TAB PO SCH (12:41)
[2020-11-13] MEDS ORDERED: EPINEPHrine 10 ML SYRINGE (0.1 MG/ML) ONE (12:55)
[2020-11-13] MEDS ORDERED: LORazepam 2 MG/ML INJ ONE (13:05)
--- NOTE | 2020-11-13 13:35 | P.PN ---
Progress Note - Text Progress Note Date: 11/13/20 FREEMAN CARLA was called on patient after he was found unresponsive and sewn after he went into PEA arrest. High quality CPR started immediately by nursing staff. Patient was given one-time dose of IV epinephrine. Soon after patient had return of spontaneous circulation. Patient was waking up but was having episodes of retching and appeared very nauseous. Heart rate in the 140s and 150s sinus tach on the monitor. He was able to answer questions appropriately. He received 1 dose of IV Zofran with good symptomatic relief. Blood pressure post code was 140/80. Electrolytes from this morning he appears within acceptable range. Apparently patient was admitted to the hospital with a myoca rdial infarction and underwent left heart catheterization with stent placement on November 07. I would obtain a 12-lead EKG and check magnesium levels. Continue ICU care. Advised nursing staff to notify attending physician and cardiology team with the event. Patient noted to have severe abdominal distention. We will obtain acute abdominal series for further evaluation.
[2020-11-13] MEDS: ONDANSETRON 4 MG/2 ML VIAL IVP PRN (13:39)
--- NOTE | 2020-11-13 14:00 | XR ---
EXAMINATION TYPE: XR chest 1V portable DATE OF EXAM: 11/13/2020 COMPARISON: Prior chest x-ray 11/12/2020 HISTORY: Status post cardiac arrest, abnormal chest x-ray TECHNIQUE: Single frontal view of the chest is obtained. FINDINGS: Findings are similar to prior exam. IMPRESSION: Correlate for pneumonia, edema.
--- NOTE | 2020-11-13 14:15 | XR ---
EXAMINATION TYPE: XR abdomen 2V DATE OF EXAM: 11/13/2020 CLINICAL DATA: 85-year-old male with severe abdominal distention, status post CPR, [facility] COMPARISON: 11/09/2020 FINDINGS: Atherosclerotic calcifications throughout the aorta. No evidence for free intraperitoneal air. Nonspecific, overall not obstructed bowel gas pattern. Some air and stool is seen at the flexures of the colon and air within the stomach. Large patient body habitus. IMPRESSION: No evidence for free air. Nonspecific, overall nonobstructive bowel gas pattern.
[2020-11-13 15:30] LABS: Albumin 3.6 g/dL (3.5-5.0); Basophils % (A) 0 %; Calcium 9.1 mg/dL (8.4-10.2); Eosinophils % (A) 0 %; HCT 30.3 % (39.0-53.0); HGB 10.5 gm/dL (13.0-17.5); Lymphocytes # (A) 0.5 k/uL (1.0-4.8); Lymphocytes % (A) 6 %; MCH 35.6 pg (25.0-35.0); MCHC 34.7 g/dL (31.0-37.0); MCV 102.6 fL (80.0-100.0); Macrocytosis Slight; Magnesium 2.3 mg/dL (1.6-2.3); Mean Platelet Volume 8.9; Monocytes # (A) 0.6 k/uL (0-1.0); Monocytes % (A) 7 %; Neutrophils # (A) 6.6 k/uL (1.3-7.7); Neutrophils % (A) 85 %; Platelet Count 218 k/uL (150-450); RBC 2.95 m/uL (4.30-5.90); RDW 12.1 % (11.5-15.5); Total Bilirubin 0.9 mg/dL (0.2-1.3); Total Protein 6.2 g/dL (6.3-8.2); WBC 7.8 k/uL (3.8-10.6)
[2020-11-13 16:29] LABS: Glucose,Whole Blood 194 mg/dL (75-99)
--- NOTE | 2020-11-13 16:45 | P.PN ---
Subjective Progress Note Date: 11/13/20 This is a 85-year-old gentleman with history of ischemic heart disease and stent placement and also an episode of CODE BLUE and bradycardia. Patient is still extremely weak and short of breath. He does have expiratory wheezes and rhonchi. He complaints of chest discomfort only when he takes it is breath or coughing. This seemed to be related to CPR. No Sigmund arrhythmias or bradycardia noted at this time. Patient is slightly tachycardic. We will start him back on metoprolol 12.5 mg by mouth twice a day and watch him carefully. Rest of the management will be continued . 11/12/2020: This patient has remained relatively stable since yesterday. He is sitting up in the chair. Denies any chest pain. Doesn't appear to be in acute respiratory distress. His lungs show less wheezing today. He is on metoprolol small dose and tolerating well. No evidence and significant bradyarrhythmias. Patient carotid duplex study showed moderate to severe bilateral disease. Neurology is following him. From cardiac standpoint. He seemed to be relatively stable. He may be monitored telemetry unit today. 11/13/2020: This patient remains relatively stable. Patient has been having some loose bowel movements. Denies any chest pain. He seemed to be frustrated that he is in the hospital for so long. Doesn't appear to be in acute respiratory distress. Patient is maintaining sinus rhythm with APCs. His blood pressure is fairly controlled. Lungs are clear. Heart is regular with skipped beats. Patient will continue current medical therapy. He may be transferred to selective care or rehab program , follow-up with KENDAL Rivera in the office. This patient is reevaluated in the afternoon after patient had an episode of cardiac arrest. Apparently the nurses were making attempts to take him sit in the chair. Patient became slightly bradycardic and subsequently was found to have pulseless activity. He was put in the bed and a brief CPR was done in 1 dose of epinephrine was given. Subsequently, patient developed a pulse and became responsive. Patient seemed to be alert and oriented at the time of my examination. Denies any chest pain or shortness of breath. His EKG showed sinus rhythm with frequent APCs without any acute changes. Echocardiogram apparently showed impaired LV function without any evidence of pericardial effusion. The etiology of these episodes is not clear. Patient had a cardiac catheterization after the previous episode and was not found to have significant disease. We'll get d-dimer and also troponin values. Continue to monitor him. His lungs appeared to be clear. Patient doesn't want to be intubated but won't continued to CPR. Prognosis is guarded. I will also discuss with involved cardiologists Dr. Cifuentes, Dr. Rivera and also Dr. Fernandez. Objective - Vital Signs Vital signs: Vital Signs Temp 98.1 F 11/13/20 03:41 Pulse 104 H 11/13/20 03:41 Resp 24 11/13/20 03:41 BP 126/73 11/13/20 03:41 Pulse Ox 93 L 11/13/20 03:41 Intake & Output 11/12/20 11/13/20 11/13/20 18:59 06:59 18:59 Intake Total 40 160 Output Total 175 875 Balance -135 -715 Intake: IV 40 160 kvo 40 160 Output: Urine 175 875 Other: Voiding Method Indwelling Catheter Indwelling Catheter - Exam GENERAL EXAM: Patient is alert and oriented and doesn't appear to be in respiratory distress. Appears to be weak HEENT: Normocephalic. Normal reaction of pupils, equal size, normal range of extraocular motion. No erythema or exudates in the throat. NECK: No masses, no nuchal rigidity. CHEST: No chest wall deformity. LUNGS: Clear HEART: S1 and S2 normal with no audible mumurs or gallops. Regular rhythm, femorals equal on both sides.. ABDOMEN: No hepatosplenomegaly, normal bowel sounds, no guarding or rigidity. SKIN: No rashes CENTRAL NERVOUS SYSTEM: No focal deficits. EXTREMITIES: No cyanosis, clubbing or edema. - Labs CBC & Chem 7: 11/13/20 14:56 11/13/20 14:56 Labs: Abnormal Lab Results - Last 24 Hours (Table) 11/12/20 11/12/20 11/13/20 Range/Units 16:43 20:21 03:31 RBC 3.10 L (4.30-5.90) m/uL Hgb 10.7 L (13.0-17.5) gm/dL Hct 31.9 L (39.0-53.0) % MCV 102.9 H (80.0-100.0) fL MCH (25.0-35.0) pg Lymphocytes # 0.7 L (1.0-4.8) k/uL Sodium (137-145) mmol/L Chloride (98-107) mmol/L BUN (9-20) mg/dL Creatinine (0.66-1.25) mg/dL Glucose (74-99) mg/dL POC Glucose (mg/dL) 174 H 193 H (75-99) mg/dL Phosphorus (2.5-4.5) mg/dL Troponin I (0.000-0.034) ng/mL Total Protein (6.3-8.2) g/dL 11/13/20 11/13/20 11/13/20 Range/Units 03:31 06:26 11:46 RBC (4.30-5.90) m/uL Hgb (13.0-17.5) gm/dL Hct (39.0-53.0) % MCV (80.0-100.0) fL MCH (25.0-35.0) pg Lymphocytes # (1.0-4.8) k/uL Sodium 135 L (137-145) mmol/L Chloride (98-107) mmol/L BUN 44 H (9-20) mg/dL Creatinine (0.66-1.25) mg/dL Glucose 160 H (74-99) mg/dL POC Glucose (mg/dL) 191 H 245 H (75-99) mg/dL Phosphorus (2.5-4.5) mg/dL Troponin I (0.000-0.034) ng/mL Total Protein (6.3-8.2) g/dL 11/13/20 11/13/20 11/13/20 Range/Units 14:56 14:56 14:56 RBC 2.95 L (4.30-5.90) m/uL Hgb 10.5 L (13.0-17.5) gm/dL Hct 30.3 L (39.0-53.0) % MCV 102.6 H (80.0-100.0) fL MCH 35.6 H (25.0-35.0) pg Lymphocytes # 0.5 L (1.0-4.8) k/uL Sodium 134 L (137-145) mmol/L Chloride 97 L (98-107) mmol/L BUN 47 H (9-20) mg/dL Creatinine 1.34 H (0.66-1.25) mg/dL Glucose 224 H (74-99) mg/dL POC Glucose (mg/dL) (75-99) mg/dL Phosphorus 5.0 H (2.5-4.5) mg/dL Troponin I 1.310 H* (0.000-0.034) ng/mL Total Protein 6.2 L (6.3-8.2) g/dL 11/13/20 Range/Units 16:28 RBC (4.30-5.90) m/uL Hgb (13.0-17.5) gm/dL Hct (39.0-53.0) % MCV (80.0-100.0) fL MCH (25.0-35.0) pg Lymphocytes # (1.0-4.8) k/uL Sodium (137-145) mmol/L Chloride (98-107) mmol/L BUN (9-20) mg/dL Creatinine (0.66-1.25) mg/dL Glucose (74-99) mg/dL POC Glucose (mg/dL) 194 H (75-99) mg/dL Phosphorus (2.5-4.5) mg/dL Troponin I (0.000-0.034) ng/mL Total Protein (6.3-8.2) g/dL Assessment and Plan (1) Acute non-ST elevation myocardial infarction (NSTEMI) Current Visit: Yes Status: Acute Code(s): I21.4 - NON-ST ELEVATION (NSTEMI) MYOCARDIAL INFARCTION SNOMED Code(s): 006230678 (2) History of hypertension Current Visit: Yes Status: Acute Code(s): Z86.79 - PERSONAL HISTORY OF OTHER DISEASES OF THE CIRCULATORY SYSTEM SNOMED Code(s): 671268054 (3) History of bradycardia Current Visit: Yes Status: Acute Code(s): Z87.898 - PERSONAL HISTORY OF OTHER SPECIFIED CONDITIONS SNOMED Code(s): 420610290276330 (4) Cardiomyopathy Current Visit: Yes Status: Acute Code(s): I42.9 - CARDIOMYOPATHY, UNSPECIFIED SNOMED Code(s): 62199065 (5) COPD (chronic obstructive pulmonary disease) Current Visit: Yes Status: Acute Code(s): J44.9 - CHRONIC OBSTRUCTIVE PULMONARY DISEASE, UNSPECIFIED SNOMED Code(s): 54492997 Plan: Patient had another episode of pulseless activity requiring brief CPR. The etiology is not clear. I'll obtain d-dimer value. His echo is repeated and shows impaired LV function without any evidence of cardiac tamponade or pericardial effusion. Chest x-ray doesn't show any significant changes. We'll also await further input from palaeontologist and neurologist. Prognosis is guarded
--- NOTE | 2020-11-13 17:21 | P.PN ---
Subjective Patient is pleasant 85-year-old male came in for acute non-ST elevation myocardial infarction patient had a stent to RCA. During the hospitalization patient the became unresponsiveness bradycardic and subsequently had a catheterization again and received stent to RCA. Patient also has a low ejection fraction of 30-35% secondary to myocardial infarction. Patient had another episode of pulseless electrical activity today while sitting on the ch air patient was resuscitated and came back up pretty quickly woke up very quickly. Post event workup showed some pulmonary edema for which patient will be started on Lasix patient blood pressure is borderline and low because of that reason I'll hold off on HAJA inhibitor temporarily for now . Patient is presently on 6 L of oxygen usually doesn't use a not any oxygen at home wasn't 3 L and less today. Patient also has proximal A. fib patient is on anti- correlation with Eliquis. is presently on Augmentin as well for possible aspiration pneumonia. Constitutional: Denied any fatigue denied any fever. Cardio vascular: denied any chest pain, palpitations Gastrointestinal denied any nausea vomiting Pulmonary: She is comparing of increased shortness of breath Neurologic denied any new focal deficits All inpatient medications were reviewed and appropriate changes in these medications as dictated in the interval history and assessment and plan. Objective - Vital Signs Vital signs: Vital Signs Temp 98.1 F 11/13/20 03:41 Pulse 104 H 11/13/20 03:41 Resp 24 11/13/20 03:41 BP 126/73 11/13/20 03:41 Pulse Ox 93 L 11/13/20 03:41 Intake & Output 11/12/20 11/13/20 11/13/20 18:59 06:59 18:59 Intake Total 40 160 Output Total 175 875 Balance -135 -715 Intake: IV 40 160 kvo 40 160 Output: Urine 175 875 Other: Voiding Method Indwelling Catheter Indwelling Catheter - Exam PHYSICAL EXAMINATION: GENERAL: The patient is alert and oriented x3, not in any acute distress. Well developed, well nourished. HEENT: Pupils are round and equally reacting to light. EOMI. No scleral icterus. No conjunctival pallor. Normocephalic, atraumatic. No pharyngeal erythema. No thyromegaly. CARDIOVASCULAR: S1 and S2 present. No murmurs, rubs, or gallops. PULMONARY: Basilar crackles were appreciated ABDOMEN: Soft, nontender, nondistended, normoactive bowel sounds. No palpable organomegaly. MUSCULOSKELETAL: No joint swelling or deformity. EXTREMITIES: No cyanosis, clubbing, there is bilateral lower extremity edema 1+ pitting NEUROLOGICAL: Gross neurological examination did not reveal any focal deficits. SKIN: No rashes. - Labs CBC & Chem 7: 11/13/20 14:56 11/13/20 14:56 Labs: Abnormal Lab Results - Last 24 Hours (Table) 11/12/20 11/13/20 11/13/20 Range/Units 20:21 03:31 03:31 RBC 3.10 L (4.30-5.90) m/uL Hgb 10.7 L (13.0-17.5) gm/dL Hct 31.9 L (39.0-53.0) % MCV 102.9 H (80.0-100.0) fL MCH (25.0-35.0) pg Lymphocytes # 0.7 L (1.0-4.8) k/uL D-Dimer (<0.60) mg/L FEU Sodium 135 L (137-145) mmol/L Chloride (98-107) mmol/L BUN 44 H (9-20) mg/dL Creatinine (0.66-1.25) mg/dL Glucose 160 H (74-99) mg/dL POC Glucose (mg/dL) 193 H (75-99) mg/dL Phosphorus (2.5-4.5) mg/dL Troponin I (0.000-0.034) ng/mL Total Protein (6.3-8.2) g/dL 11/13/20 11/13/20 11/13/20 Range/Units 06:26 11:46 14:56 RBC 2.95 L (4.30-5.90) m/uL Hgb 10.5 L (13.0-17.5) gm/dL Hct 30.3 L (39.0-53.0) % MCV 102.6 H (80.0-100.0) fL MCH 35.6 H (25.0-35.0) pg Lymphocytes # 0.5 L (1.0-4.8) k/uL D-Dimer (<0.60) mg/L FEU Sodium (137-145) mmol/L Chloride (98-107) mmol/L BUN (9-20) mg/dL Creatinine (0.66-1.25) mg/dL Glucose (74-99) mg/dL POC Glucose (mg/dL) 191 H 245 H (75-99) mg/dL Phosphorus (2.5-4.5) mg/dL Troponin I (0.000-0.034) ng/mL Total Protein (6.3-8.2) g/dL 11/13/20 11/13/20 11/13/20 Range/Units 14:56 14:56 14:56 RBC (4.30-5.90) m/uL Hgb (13.0-17.5) gm/dL Hct (39.0-53.0) % MCV (80.0-100.0) fL MCH (25.0-35.0) pg Lymphocytes # (1.0-4.8) k/uL D-Dimer 1.14 H (<0.60) mg/L FEU Sodium 134 L (137-145) mmol/L Chloride 97 L (98-107) mmol/L BUN 47 H (9-20) mg/dL Creatinine 1.34 H (0.66-1.25) mg/dL Glucose 224 H (74-99) mg/dL POC Glucose (mg/dL) (75-99) mg/dL Phosphorus 5.0 H (2.5-4.5) mg/dL Troponin I 1.310 H* (0.000-0.034) ng/mL Total Protein 6.2 L (6.3-8.2) g/dL 11/13/20 Range/Units 16:28 RBC (4.30-5.90) m/uL Hgb (13.0-17.5) gm/dL Hct (39.0-53.0) % MCV (80.0-100.0) fL MCH (25.0-35.0) pg Lymphocytes # (1.0-4.8) k/uL D-Dimer (<0.60) mg/L FEU Sodium (137-145) mmol/L Chloride (98-107) mmol/L BUN (9-20) mg/dL Creatinine (0.66-1.25) mg/dL Glucose (74-99) mg/dL POC Glucose (mg/dL) 194 H (75-99) mg/dL Phosphorus (2.5-4.5) mg/dL Troponin I (0.000-0.034) ng/mL Total Protein (6.3-8.2) g/dL Assessment and Plan Plan: -Acute non-ST elevation myocardial infarction with stent to RCA and 11/06/2020 and a re-cardiac catheterization which showed patent stent on 11/08/2020 -Pulseless electrical activity on 11/13/2020 was resuscitated successfully back to sinus rhythm. Was mostly bradycardic -Ischemic cardiomyopathy with acute systolic dysfunction EF of around 30-35% wit h mild acute exacerbation patient will be started on Lasix -hyperlipidemia -History of prostate cancer -Possibility of aspiration pneumonia for which patient is on for which patient is on Augmentin -Paroxysmal atrial fibrillation patient. Patient is presently in A. fib on anticoagulation controlled with rate control medications. Continue with anticoagulation.
[2020-11-13 17:54] LABS: Glucose,Whole Blood 171 mg/dL (75-99)
[2020-11-13 20:22] LABS: Glucose,Whole Blood 135 mg/dL (75-99)
[2020-11-13] MEDS: FUROSEMIDE 10 MG/ML 2 ML VIAL IV SCH (20:36)
[2020-11-13] MEDS: ATORVASTATIN 80 MG TAB PO SCH (20:36)
[2020-11-13] MEDS: LACTULOSE 20 GM/30 ML CUP PO SCH (20:45)
--- NOTE | 2020-11-13 20:49 | ECHOF ---
Referral Reason:PEA MEASUREMENTS -------- HEIGHT: 172.7 cm WEIGHT: 116.6 kg BP: RVIDd: 3.1 cm (< 3.3) IVSd: 1.1 cm (0.6 - 1.1) LVIDd: 5.7 cm (3.9 - 5.3) LVPWd: 0.9 cm (0.6 - 1.1) IVSs: 1.4 cm LVIDs: 5.2 cm LVPWs: 1.6 cm MV E Brody: 0.80 m/s MV DecT: 249 ms MV A Brody: 0.38 m/s MV E/A Ratio: 2.08 RAP: 5.00 mmHg RVSP: 14.25 mmHg FINDINGS -------- Sinus rhythm. This was a technically difficult study with suboptimal views. Left ventricular wall thickness is normal. Overall left ventricular systolic function is severely i mpaired with, an EF between 25 - 30 %. The right ventricle is normal in size. The left atrial size is normal. The right atrium was not well visualized. 5.0mg of Lumason was utilized for enhancement of images The aortic valve was not well visualized. The mitral valve was not well visualized. There is trace mitral regurgitation. The tricuspid valve was not well visualized. Trace tricuspid regurgitation present. Right ventric ular systolic pressure is normal at < 35 mmHg. The pulmonic valve was not well visualized. There is no pericardial effusion. CONCLUSIONS -------- 1. This was a technically difficult study with suboptimal views. 2. Overall left ventricular systolic function is severely impaired with, an EF between 25 - 30 %. 3. The aortic valve was not well visualized. 4. The mitral valve was not well visualized. 5. There is trace mitral regurgitation. 6. The tricuspid valve was not well visualized. 7. Trace tricuspid regurgitation present. 8. There is no pericardial effusion. BEDSPREAD FOLDER: Brandy Pennington RDCS
[2020-11-14 04:47] LABS: Albumin 3.5 g/dL (3.5-5.0); Calcium 9.1 mg/dL (8.4-10.2); Potassium 5.2 mmol/L (3.5-5.1); Total Protein 6.2 g/dL (6.3-8.2)
[2020-11-14 04:48] LABS: Basophils % (A) 0 %; Eosinophils # (A) 0.2 k/uL (0-0.7); Eosinophils % (A) 4 %; HCT 28.7 % (39.0-53.0); HGB 10.3 gm/dL (13.0-17.5); Lymphocytes # (A) 0.8 k/uL (1.0-4.8); Lymphocytes % (A) 13 %; MCHC 35.8 g/dL (31.0-37.0); MCV 100.4 fL (80.0-100.0); Mean Platelet Volume 9.1; Monocytes # (A) 0.7 k/uL (0-1.0); Monocytes % (A) 12 %; Neutrophils # (A) 4.3 k/uL (1.3-7.7); Neutrophils % (A) 70 %; Platelet Count 142 k/uL (150-450); RBC 2.86 m/uL (4.30-5.90); RDW 12.1 % (11.5-15.5); WBC 6.1 k/uL (3.8-10.6)
[2020-11-14 06:45] LABS: Glucose,Whole Blood 141 mg/dL (75-99)
[2020-11-14] MEDS: INSULIN ASPART (NovoLOG) 100 UNIT/ML VIAL SQ SCH ×4 (06:56→20:20)
[2020-11-14] MEDS: PANTOPRAZOLE 40 MG TABLET PO SCH (06:57)
--- NOTE | 2020-11-14 08:27 | XR ---
EXAMINATION TYPE: XR chest 1V portable DATE OF EXAM: 11/14/2020 COMPARISON: Chest x-ray 11/13/2020 HISTORY: Pneumonia TECHNIQUE: Single frontal view of the chest is obtained. FINDINGS: Patient is rotated. Aorta is dense. Interstitium is increased. There is no evident pneumot horax. Left hemidiaphragm is obscured. Patchy basilar density noted. There is overlying artifact. Hea rt appears enlarged. IMPRESSION: Correlate for pneumonia, edema, atelectasis, follow-up PA and lateral chest x-ray sugges nba when patient is stable
[2020-11-14] MEDS: METOPROLOL TARTRATE 12.5 MG TAB PO SCH ×2 (09:05→20:20)
[2020-11-14] MEDS: APIXABAN 2.5 MG TABLET PO SCH ×2 (09:05→20:20)
[2020-11-14] MEDS: TAMSULOSIN 0.4 MG CAP.ER.24H PO SCH (09:05)
[2020-11-14] MEDS: FUROSEMIDE 10 MG/ML 2 ML VIAL IV SCH ×2 (09:05→20:20)
[2020-11-14] MEDS: AMOXIC-POT CLAV 875-125MG 1 EACH TAB PO SCH ×2 (09:05→20:20)
[2020-11-14] MEDS: CLOPIDOGREL 75 MG TAB PO SCH (09:05)
[2020-11-14] MEDS: ASPIRIN 81 MG PO SCH (09:05)
[2020-11-14] MEDS: polyethylene glycoL 3350 17 GM POWD.PACK PO SCH (09:06)
[2020-11-14] MEDS: TROSPIUM CHLORIDE 20 MG TABLET PO SCH (09:07)
[2020-11-14] MEDS: ACETAMINOPHEN TAB 500 MG TAB PO PRN ×2 (11:27→17:02)
[2020-11-14 11:49] LABS: Glucose,Whole Blood 169 mg/dL (75-99)
[2020-11-14] MEDS: MULTIVITAMINS, THERA 1 EACH TAB PO SCH (11:57)
--- NOTE | 2020-11-14 12:49 | P.PN ---
Subjective Progress Note Date: 11/14/20 Principal diagnosis: Acute non-ST elevation myocardial infarction This is an 85-year-old male patient got transferred to the intensive care unit after a cardiac event requiring another cardiac catheterization that was done this afternoon following that the patient was brought into the intensive care unit. The patient is known to have coronary artery disease. He was Hospital as forany period he was taken to the cardiac catheterization lab yesterday he underwent a cardiac catheterization and he ended up having stenting of the RCA. Note that he also had disease involving the circumflex in the order of 70-80%. The right coronary artery was thought to be dominant and it was thought to be the culprit and based on that a stent was inserted in the mid RCA reducing and the lesion from 80% to 0%. The patient was in the medical floor and he acutely became unresponsive and CPR was initiated. I reviewed the code records. Apparently the patient was walking back from the bathroom and he became unresponsive and he had sinus bradycardia with a heart rate in the low 20s. He was currie and unresponsive. He received 2 rounds of CPR and he was given epinephrine and CPR was initiated and was given to her for a total of 2 minutes and subsequently there was recurrence within circulation and the patient regained back his consciousness. His blood pressure came at 158/98. The patient began having some emesis. He required no intubation. The patient was noted to have a 3.2 second part. Based on all this events, the patient underwent another cardiac catheterization and this was done by Dr. Fernandez and the cardiac catheterization revealed a patent RCA stent. No intervention was done and the patient was brought back to the intensive care unit. Echocardiogram that was done yesterday showed impairment of the LV function and the patient an ejection fraction of 30-35% in addition to anteroseptal and inferior hypokinesis and apical hypokinesis. RV was within normal limits. No other significant valvular abnormalities. I was told by Dr. Fernandez that the filling pressure with elevated and has lived ventricular end-diastolic pressure was at around 30. His chest x-ray that was done earlier this morning showed cardiomegaly with some mild pulmonary vascular congestion. No airspace disease. No effusions. The right hemidiaphragm was slightly elevated. The patient was in the intensive care unit. The patient was awake and alert. The patient was hemodynamically stable. He was feeling any chest pain. The second cardiac catheterization was done through the right radial. The feet are cold and the pulses were diminished in lower extremities bilaterally. His creatinine was up to 1.23 from this morning and the rest of the blood work and electrodes were within normal limits. His lactic acid level was at 3.7 and the patient is currently on aspirin 325 mg by mouth daily, Plavix 75 mg by mouth daily, Eliquis 2.5 mg by mouth twice a day and he is awake. Is following commands. No focal neurological deficits. He is obese. Denies having any chronic lung disease. No asthma. No emphysema. No obstructive sleep apnea although he does have some features otherwise. His cardiac rhythm is sinus. He has had previous history of atrial fibrillation. No seizure activity. No history of any CVA. on 11/09/2020, the patient is awake and alert and hemodynamically stable. History of any chest pain and he did not have any further neurologic events or c ardiovascular events overnight. His night was uneventful. Currently, he is in a sinus rhythm. Heart rate is in the mid 80s. He is on 2 L about 2 by nasal cannula and his pulse ox is 94%. His white cell count is at 8.3 with hemoglobin of 10.8. His renal function is stable and the creatinine is at 1.25 with a BUN of 30. His troponin peaked at 11.2and he is down trending and his troponins. He remains on aspirin. He remains on Plavix. He remains on Eliquis 2.5 mg by mouth twice a day.the CAT scan of the brain was essentially negative and the patient was found to have some [employer] atrophy. No acute abnormalities noted. A chest x-ray from today showed elevation of the right hemidiaphragm. Some cardiomegaly. Minimal pulmonary vascular congestion. No other acute abnormalities noted. His IV fluids running at KVO and he has been given Lasix by cardiology 1 dose, 40 mg IV push.. The patient overall is weak. He does have some abdominal distention and his last bowel movement was on 11/07/2020. No nausea. No vomiting. He has adequate pulses in lower extremities bilaterally. 11/10/2020, awake and alert and sitting up on a recliner. He is having some shortness of breath especially with activity. Overnight he was slightly confused and his morning is back to his baseline. Chest x-ray showing cardiomegaly with mild pulmonary vascular congestion. Note that the patient has CHF with impaired LV function and the filling pressures were quite high at a time of the catheterization. No chest pain. Cardiac rhythm is sinus. The patient is post stenting of the RCA. He was seen by neurology and an EEG was done that showed no acute abnormalities and there was evidence of any seizure focus and was essentially normal EEG and the CAT scan of the brain was also normal. Renal function shows a stable creatinine of 1.3 compared to yesterday and the rest of the electrolytes are also stable. Troponin peaked at 10.2 as mentioned yesterday. Remains on aspirin. Remains on Plavix. Remains on Eliquis 2.5 mg by mouth twice a day. The beta zeferino is still on hold and his heart rate has quite picked up and improved and his heart is currently ranging between 80-90. He is on 3 L of oxygen by nasal cannula with a pulse of 77%. He is on no diuretics. Orthostatics was performed yesterday and was negative. No abdominal distention. The incentive on the abdomen shows no evidence of any obstruction and there was normal abdominal gas pattern. Not had a bowel movement yet. He is essentially the same and he tells that he is chronically distended. At that was given Lasix by cardiology yesterday and he produced a liter of urine output immediately and the fluid balance over the past 24 hours has been essentially -145 mL. He is physically weak in all 4 extremities and he needs help to get around and he needs help to be moved to a bedside recliner. Patient was reevaluated today on 11/11/2020, patient remains in the ICU as an overflow, he is on 4 L nasal cannula, IV fluid at KVO, received Lasix overnight 40 mg IV push, responded well with good urinary output. Chest x-ray this morning showed mild interstitial edema. Clinically however the patient is doing great, asymptomatic. Considering his history of possible aspiration, patient is now on Augmentin 875 twice a day. Labs were reviewed CBC is relatively normal index was abnormal BUN is 34 creatinine is 1.16. Plan to transfer the patient to [facility] once a bed is available. Patient was seen today on 11/12/2020, remains in the ICU as an overflow, patient is doing well, relatively asymptomatic, on 2 L nasal cannula. His IV fluid at [facility], patient has not had a bowel movement hence will be given some lactulose. Chest x-ray minimal interstitial edema and left lower lobe atelectasis is noted. CBC is normal. Electrolytes are normal. BUN is 48 creatinine 1.33 Patient was reevaluated today on 11/14/2020, patient had another episode of cardiac arrest, yesterday, as the patient is were moving the patient from bed to the chair, he became bradycardic and at one point went pulseless. Patient had a brief CPR, and one dose of epinephrine was given. According to the nurse he was noted to be profoundly bradycardic prior to passing out. Today the patient is doing well, and I felt that the patient will most likely benefit from a pacemaker implantation. Cardiology is undecided about pacemaker implantation at this point. Labs from today were reviewed. Troponin is 1.250. Objective - Vital Signs Vital signs: Vital Signs Temp 97.7 F 11/14/20 08:00 Pulse 105 H 11/14/20 11:00 Resp 24 11/14/20 11:00 BP 116/76 11/14/20 11:00 Pulse Ox 97 11/14/20 11:00 Intake & Output 11/13/20 11/14/20 11/14/20 18:59 06:59 18:59 Intake Total 400 510 350 Output Total 325 1235 365 Balance 75 -725 -15 Weight 111.3 kg Intake: IV 110 50 kvo 110 50 Oral 400 400 300 Output: Urine 325 1235 365 Other: Voiding Method Indwelling Catheter Indwelling Catheter - Exam Physical Exam: Revealed 85-year-old white male in no distress. On 2 L nasal ca nnula. Head: Atraumatic, normocephalic. HEENT:[Neck is supple.] [No neck masses.] [No thyromegaly.] [No JVD.] PERRLA, EOMI, nonicteric. Chest: [Symmetrical chest expansion, fine crackles at the bases, no rhonchi and no wheezes. Cardiac Exam: [Normal S1 and S2, no S3 gallop, no murmur.] Abdomen: [Soft, nontender, no megaly, no rebound, no guarding, normal bowel sounds.] Extremities: [No clubbing, no edema, no cyanosis.] Good pulses bilaterally. Neurological Exam: [No focal neurologic deficit.] Alert and oriented 3. Psychiatric: Normal mood, affect and normal mental status examination. Skin: No rashes. Musculoskeletal: No deformities and no limitation in range of motion - Labs CBC & Chem 7: 11/14/20 04:34 11/14/20 04:11 Labs: Abnormal Lab Results - Last 24 Hours (Table) 11/13/20 11/13/20 11/13/20 Range/Units 14:56 14:56 14:56 RBC 2.95 L (4.30-5.90) m/uL Hgb 10.5 L (13.0-17.5) gm/dL Hct 30.3 L (39.0-53.0) % MCV 102.6 H (80.0-100.0) fL MCH 35.6 H (25.0-35.0) pg Plt Count (150-450) k/uL Lymphocytes # 0.5 L (1.0-4.8) k/uL D-Dimer (<0.60) mg/L FEU Sodium 134 L (137-145) mmol/L Potassium (3.5-5.1) mmol/L Chloride 97 L (98-107) mmol/L BUN 47 H (9-20) mg/dL Creatinine 1.34 H (0.66-1.25) mg/dL Glucose 224 H (74-99) mg/dL POC Glucose (mg/dL) (75-99) mg/dL Phosphorus 5.0 H (2.5-4.5) mg/dL Troponin I 1.310 H* (0.000-0.034) ng/mL Total Protein 6.2 L (6.3-8.2) g/dL 11/13/20 11/13/20 11/13/20 Range/Units 14:56 16:28 17:53 RBC (4.30-5.90) m/uL Hgb (13.0-17.5) gm/dL Hct (39.0-53.0) % MCV (80.0-100.0) fL MCH (25.0-35.0) pg Plt Count (150-450) k/uL Lymphocytes # (1.0-4.8) k/uL D-Dimer 1.14 H (<0.60) mg/L FEU Sodium (137-145) mmol/L Potassium (3.5-5.1) mmol/L Chloride (98-107) mmol/L BUN (9-20) mg/dL Creatinine (0.66-1.25) mg/dL Glucose (74-99) mg/dL POC Glucose (mg/dL) 194 H 171 H (75-99) mg/dL Phosphorus (2.5-4.5) mg/dL Troponin I (0.000-0.034) ng/mL Total Protein (6.3-8.2) g/dL 11/13/20 11/14/20 11/14/20 Range/Units 20:21 04:11 04:27 RBC (4.30-5.90) m/uL Hgb (13.0-17.5) gm/dL Hct (39.0-53.0) % MCV (80.0-100.0) fL MCH (25.0-35.0) pg Plt Count (150-450) k/uL Lymphocytes # (1.0-4.8) k/uL D-Dimer (<0.60) mg/L FEU Sodium 134 L (137-145) mmol/L Potassium 5.2 H (3.5-5.1) mmol/L Chloride (98-107) mmol/L BUN 50 H (9-20) mg/dL Creatinine (0.66-1.25) mg/dL Glucose 131 H (74-99) mg/dL POC Glucose (mg/dL) 135 H (75-99) mg/dL Phosphorus (2.5-4.5) mg/dL Troponin I 1.250 H* (0.000-0.034) ng/mL Total Protein 6.2 L (6.3-8.2) g/dL 11/14/20 11/14/20 11/14/20 Range/Units 04:34 06:43 11:48 RBC 2.86 L (4.30-5.90) m/uL Hgb 10.3 L (13.0-17.5) gm/dL Hct 28.7 L (39.0-53.0) % MCV 100.4 H (80.0-100.0) fL MCH 36.0 H (25.0-35.0) pg Plt Count 142 L (150-450) k/uL Lymphocytes # 0.8 L (1.0-4.8) k/uL D-Dimer (<0.60) mg/L FEU Sodium (137-145) mmol/L Potassium (3.5-5.1) mmol/L Chloride (98-107) mmol/L BUN (9-20) mg/dL Creatinine (0.66-1.25) mg/dL Glucose (74-99) mg/dL POC Glucose (mg/dL) 141 H 169 H (75-99) mg/dL Phosphorus (2.5-4.5) mg/dL Troponin I (0.000-0.034) ng/mL Total Protein (6.3-8.2) g/dL Assessment and Plan Assessment: Impression: Acute non-ST elevation myocardial infarction, status post stenting of RCA on 11/2020. Status post redo cardiac catheterization on 11/08/2020 revealing patent stent to RCA. Cardiac arrest with unresponsiveness associated with bradycardia and asystole 2. Peripheral vessel occlusive disease. Mostly affecting lower extremities. Ischemic cardiomyopathy and LV dysfunction with ejection fraction of 30-35%. Benign essential hypertension. Dyslipidemia. History of prostate cancer. Possible aspiration pneumonia. Paroxysmal atrial fibrillation. Recommendation: Continue aspirin and Plavix post stent placement. Continue Augmentin empirically. Continue oxygen and titrate accordingly. Continue diuretics when necessary. Continue anticoagulation therapy/eliquis Continue GI and DVT prophylaxis. I have a feeling the patient will eventually require pacemaker implantation, however cardiology is undecided about pacemaker placement. Continue to monitor in the ICU Time with Patient: Less than 30
--- NOTE | 2020-11-14 13:10 | P.PN ---
Subjective Progress Note Date: 11/14/20 This is a 85-year-old gentleman with history of ischemic heart disease and stent placement and also an episode of CODE BLUE and bradycardia. Patient is still extremely weak and short of breath. He does have expiratory wheezes and rhonchi. He complaints of chest discomfort only when he takes it is breath or coughing. This seemed to be related to CPR. No Sigmund arrhythmias or bradycardia noted at this time. Patient is slightly tachycardic. We will start him back on metoprolol 12.5 mg by mouth twice a day and watch him carefully. Rest of the management will be continued . 11/12/2020: This patient has remained relatively stable since yesterday. He is sitting up in the chair. Denies any chest pain. Doesn't appear to be in acute respiratory distress. His lungs show less wheezing today. He is on metoprolol small dose and tolerating well. No evidence and significant bradyarrhythmias. Patient carotid duplex study showed moderate to severe bilateral disease. Neurology is following him. From cardiac standpoint. He seemed to be relatively stable. He may be monitored telemetry unit today. 11/13/2020: This patient remains relatively stable. Patient has been having some loose bowel movements. Denies any chest pain. He seemed to be frustrated that he is in the hospital for so long. Doesn't appear to be in acute respiratory distress. Patient is maintaining sinus rhythm with APCs. His blood pressure is fairly controlled. Lungs are clear. Heart is regular with skipped beats. Patient will continue current medical therapy. He may be transferred to selective care or rehab program , follow-up with KENDAL Rivera in the office. This patient is reevaluated in the afternoon after patient had an episode of cardiac arrest. Apparently the nurses were making attempts to take him sit in the chair. Patient became slightly bradycardic and subsequently was found to have pulseless activity. He was put in the bed and a brief CPR was done in 1 dose of epinephrine was given. Subsequently, patient developed a pulse and became responsive. Patient seemed to be alert and oriented at the time of my examination. Denies any chest pain or shortness of breath. His EKG showed sinus rhythm with frequent APCs without any acute changes. Echocardiogram apparently showed impaired LV function without any evidence of pericardial effusion. The etiology of these episodes is not clear. Patient had a cardiac catheterization after the previous episode and was not found to have significant disease. We'll get d-dimer and also troponin values. Continue to monitor him. His lungs appeared to be clear. Patient doesn't want to be intubated but won't continued to CPR. Prognosis is guarded. I will also discuss with involved cardiologists Dr. Cifuentes, Dr. Rivera and also Dr. Fernandez. 11/14/2020: This gentleman has been stable since yesterday. Hasn't had any episodes of bradycardia or syncopal episode. Complaints of severe chest pain from compressions. He seemed to be in sinus rhythm with APCs. His troponin is mildly elevated but seemed to be coming down compared to the levels that he had with previous AL.. I do not see any significant bump. Echo cardiogram showed similar LV function as before. During last episode, patient became slightly bradycardic but never had asystole and never documented that patient had asystole. I was told by the nurses that patient had pulseless activity. Patient regained pulses after giving IV epinephrine. Dr. Fernandez also noted an episode in the Lab where patient had another episode of unconsciousness while patient is in sinus rhythm. So far there was no episode of asystole that is documented. We discussed with the family members, and at this time, the family and the patient have decided not to have any CPR. We will continue with current medical therapy. If he ever documented asystolic period associated with loss of consciousness, patient will be considered for permanent pacemaker implantation. Objective - Vital Signs Vital signs: Vital Signs Temp 97.7 F 11/14/20 08:00 Pulse 105 H 11/14/20 11:00 Resp 24 11/14/20 11:00 BP 116/76 11/14/20 11:00 Pulse Ox 97 11/14/20 11:00 Intake & Output 11/13/20 11/14/20 11/14/20 18:59 06:59 18:59 Intake Total 400 510 350 Output Total 325 1235 365 Balance 75 -725 -15 Weight 111.3 kg Intake: IV 110 50 kvo 110 50 Oral 400 400 300 Output: Urine 325 1235 365 Other: Voiding Method Indwelling Catheter Indwelling Catheter - Exam GENERAL EXAM: Patient is alert and oriented and doesn't appear to be in respiratory distress. Appears to be weak HEENT: Normocephalic. Normal reaction of pupils, equal size, normal range of extraocular motion. No erythema or exudates in the throat. NECK: No masses, no nuchal rigidity. CHEST: No chest wall deformity. LUNGS: Clear HEART: S1 and S2 normal with no audible mumurs or gallops. Regular rhythm, femorals equal on both sides.. ABDOMEN: No hepatosplenomegaly, normal bowel sounds, no guarding or rigidity. SKIN: No rashes CENTRAL NERVOUS SYSTEM: No focal deficits. EXTREMITIES: No cyanosis, clubbing or edema. - Labs CBC & Chem 7: 11/14/20 04:34 11/14/20 04:11 Labs: Abnormal Lab Results - Last 24 Hours (Table) 11/13/20 11/13/20 11/13/20 Range/Units 14:56 14:56 14:56 RBC 2.95 L (4.30-5.90) m/uL Hgb 10.5 L (13.0-17.5) gm/dL Hct 30.3 L (39.0-53.0) % MCV 102.6 H (80.0-100.0) fL MCH 35.6 H (25.0-35.0) pg Plt Count (150-450) k/uL Lymphocytes # 0.5 L (1.0-4.8) k/uL D-Dimer (<0.60) mg/L FEU Sodium 134 L (137-145) mmol/L Potassium (3.5-5.1) mmol/L Chloride 97 L (98-107) mmol/L BUN 47 H (9-20) mg/dL Creatinine 1.34 H (0.66-1.25) mg/dL Glucose 224 H (74-99) mg/dL POC Glucose (mg/dL) (75-99) mg/dL Phosphorus 5.0 H (2.5-4.5) mg/dL Troponin I 1.310 H* (0.000-0.034) ng/mL Total Protein 6.2 L (6.3-8.2) g/dL 11/13/20 11/13/20 11/13/20 Range/Units 14:56 16:28 17:53 RBC (4.30-5.90) m/uL Hgb (13.0-17.5) gm/dL Hct (39.0-53.0) % MCV (80.0-100.0) fL MCH (25.0-35.0) pg Plt Count (150-450) k/uL Lymphocytes # (1.0-4.8) k/uL D-Dimer 1.14 H (<0.60) mg/L FEU Sodium (137-145) mmol/L Potassium (3.5-5.1) mmol/L Chloride (98-107) mmol/L BUN (9-20) mg/dL Creatinine (0.66-1.25) mg/dL Glucose (74-99) mg/dL POC Glucose (mg/dL) 194 H 171 H (75-99) mg/dL Phosphorus (2.5-4.5) mg/dL Troponin I (0.000-0.034) ng/mL Total Protein (6.3-8.2) g/dL 11/13/20 11/14/20 11/14/20 Range/Units 20:21 04:11 04:27 RBC (4.30-5.90) m/uL Hgb (13.0-17.5) gm/dL Hct (39.0-53.0) % MCV (80.0-100.0) fL MCH (25.0-35.0) pg Plt Count (150-450) k/uL Lymphocytes # (1.0-4.8) k/uL D-Dimer (<0.60) mg/L FEU Sodium 134 L (137-145) mmol/L Potassium 5.2 H (3.5-5.1) mmol/L Chloride (98-107) mmol/L BUN 50 H (9-20) mg/dL Creatinine (0.66-1.25) mg/dL Glucose 131 H (74-99) mg/dL POC Glucose (mg/dL) 135 H (75-99) mg/dL Phosphorus (2.5-4.5) mg/dL Troponin I 1.250 H* (0.000-0.034) ng/mL Total Protein 6.2 L (6.3-8.2) g/dL 11/14/20 11/14/20 11/14/20 Range/Units 04:34 06:43 11:48 RBC 2.86 L (4.30-5.90) m/uL Hgb 10.3 L (13.0-17.5) gm/dL Hct 28.7 L (39.0-53.0) % MCV 100.4 H (80.0-100.0) fL MCH 36.0 H (25.0-35.0) pg Plt Count 142 L (150-450) k/uL Lymphocytes # 0.8 L (1.0-4.8) k/uL D-Dimer (<0.60) mg/L FEU Sodium (137-145) mmol/L Potassium (3.5-5.1) mmol/L Chloride (98-107) mmol/L BUN (9-20) mg/dL Creatinine (0.66-1.25) mg/dL Glucose (74-99) mg/dL POC Glucose (mg/dL) 141 H 169 H (75-99) mg/dL Phosphorus (2.5-4.5) mg/dL Troponin I (0.000-0.034) ng/mL Total Protein (6.3-8.2) g/dL Assessment and Plan (1) Acute non-ST elevation myocardial infarction (NSTEMI) Current Visit: Yes Status: Acute Code(s): I21.4 - NON-ST ELEVATION (NSTEMI) MYOCARDIAL INFARCTION SNOMED Code(s): 518151461 (2) History of hypertension Current Visit: Yes Status: Acute Code(s): Z86.79 - PERSONAL HISTORY OF OTHER DISEASES OF THE CIRCULATORY SYSTEM SNOMED Code(s): 688759736 (3) History of bradycardia Current Visit: Yes Status: Acute Code(s): Z87.898 - PERSONAL HISTORY OF OTHER SPECIFIED CONDITIONS SNOMED Code(s): 769565477791500 (4) Cardiomyopathy Current Visit: Yes Status: Acute Code(s): I42.9 - CARDIOMYOPATHY, UNSPECIFIED SNOMED Code(s): 30879611 (5) COPD (chronic obstructive pulmonary disease) Current Visit: Yes Status: Acute Code(s): J44.9 - CHRONIC OBSTRUCTIVE PULMONARY DISEASE, UNSPECIFIED SNOMED Code(s): 52035611 Plan: Continue to monitor the patient for this episodes of unconsciousness. So far some bradycardia and pulseless activity was noted. No asystole is documented. We will follow closely
--- NOTE | 2020-11-14 15:36 | P.PN ---
Subjective Patient is pleasant 85-year-old male came in for acute non-ST elevation myocardial infarction patient had a stent to RCA. During the hospitalization patient the became unresponsiveness bradycardic and subsequently had a catheterization again and received stent to RCA. Patient also has a low ejection fraction of 30-35% secondary to myocardial infarction. Patient had another episode of pulseless electrical activity today while sitting on the ch air patient was resuscitated and came back up pretty quickly woke up very quickly. Post event workup showed some pulmonary edema for which patient will be started on Lasix patient blood pressure is borderline and low because of that reason I'll hold off on HAJA inhibitor temporarily for now . Patient is presently on 6 L of oxygen usually doesn't use a not any oxygen at home wasn't 3 L and less today. Patient also has proximal A. fib patient is on anti- correlation with Eliquis. is presently on Augmentin as well for possible aspiration pneumonia. 11/14/2020 Patient looks better today patient is presently on 2 L of autism does have bibasilar crackles improved serum creatinine with IV Lasix which will be continued. Patient is presently DO NOT RESUSCITATE which I believe is more ap propriate. Constitutional: Denied any fatigue denied any fever. Cardio vascular: denied any chest pain, palpitations Gastrointestinal denied any nausea vomiting Pulmonary: She is comparing of increased shortness of breath Neurologic denied any new focal deficits All inpatient medications were reviewed and appropriate changes in these medications as dictated in the interval history and assessment and plan. Objective - Vital Signs Vital signs: Vital Signs Temp 97.7 F 11/14/20 08:00 Pulse 105 H 11/14/20 11:00 Resp 24 11/14/20 11:00 BP 116/76 11/14/20 11:00 Pulse Ox 97 11/14/20 11:00 Intake & Output 11/13/20 11/14/20 11/14/20 18:59 06:59 18:59 Intake Total 400 510 350 Output Total 325 1235 365 Balance 75 -725 -15 Weight 111.3 kg Intake: IV 110 50 kvo 110 50 Oral 400 400 300 Output: Urine 325 1235 365 Other: Voiding Method Indwelling Catheter Indwelling Catheter - Exam PHYSICAL EXAMINATION: GENERAL: The patient is alert and oriented x3, not in any acute distress. Well developed, well nourished. HEENT: Pupils are round and equally reacting to light. EOMI. No scleral icterus. No conjunctival pallor. Normocephalic, atraumatic. No pharyngeal erythema. No thyromegaly. CARDIOVASCULAR: S1 and S2 present. No murmurs, rubs, or gallops. PULMONARY: Basilar crackles were appreciated ABDOMEN: Soft, nontender, nondistended, normoactive bowel sounds. No palpable organomegaly. MUSCULOSKELETAL: No joint swelling or deformity. EXTREMITIES: No cyanosis, clubbing, there is bilateral lower extremity edema 1+ pitting NEUROLOGICAL: Gross neurological examination did not reveal any focal deficits. SKIN: No rashes. - Labs CBC & Chem 7: 11/14/20 04:34 11/14/20 04:11 Labs: Abnormal Lab Results - Last 24 Hours (Table) 11/13/20 11/13/20 11/13/20 Range/Units 14:56 14:56 16:28 RBC (4.30-5.90) m/uL Hgb (13.0-17.5) gm/dL Hct (39.0-53.0) % MCV (80.0-100.0) fL MCH (25.0-35.0) pg Plt Count (150-450) k/uL Lymphocytes # (1.0-4.8) k/uL D-Dimer 1.14 H (<0.60) mg/L FEU Sodium (137-145) mmol/L Potassium (3.5-5.1) mmol/L BUN (9-20) mg/dL Glucose (74-99) mg/dL POC Glucose (mg/dL) 194 H (75-99) mg/dL Troponin I 1.310 H* (0.000-0.034) ng/mL Total Protein (6.3-8.2) g/dL 11/13/20 11/13/20 11/14/20 Range/Units 17:53 20:21 04:11 RBC (4.30-5.90) m/uL Hgb (13.0-17.5) gm/dL Hct (39.0-53.0) % MCV (80.0-100.0) fL MCH (25.0-35.0) pg Plt Count (150-450) k/uL Lymphocytes # (1.0-4.8) k/uL D-Dimer (<0.60) mg/L FEU Sodium 134 L (137-145) mmol/L Potassium 5.2 H (3.5-5.1) mmol/L BUN 50 H (9-20) mg/dL Glucose 131 H (74-99) mg/dL POC Glucose (mg/dL) 171 H 135 H (75-99) mg/dL Troponin I (0.000-0.034) ng/mL Total Protein 6.2 L (6.3-8.2) g/dL 11/14/20 11/14/20 11/14/20 Range/Units 04:27 04:34 06:43 RBC 2.86 L (4.30-5.90) m/uL Hgb 10.3 L (13.0-17.5) gm/dL Hct 28.7 L (39.0-53.0) % MCV 100.4 H (80.0-100.0) fL MCH 36.0 H (25.0-35.0) pg Plt Count 142 L (150-450) k/uL Lymphocytes # 0.8 L (1.0-4.8) k/uL D-Dimer (<0.60) mg/L FEU Sodium (137-145) mmol/L Potassium (3.5-5.1) mmol/L BUN (9-20) mg/dL Glucose (74-99) mg/dL POC Glucose (mg/dL) 141 H (75-99) mg/dL Troponin I 1.250 H* (0.000-0.034) ng/mL Total Protein (6.3-8.2) g/dL 11/14/20 Range/Units 11:48 RBC (4.30-5.90) m/uL Hgb (13.0-17.5) gm/dL Hct (39.0-53.0) % MCV (80.0-100.0) fL MCH (25.0-35.0) pg Plt Count (150-450) k/uL Lymphocytes # (1.0-4.8) k/uL D-Dimer (<0.60) mg/L FEU Sodium (137-145) mmol/L Potassium (3.5-5.1) mmol/L BUN (9-20) mg/dL Glucose (74-99) mg/dL POC Glucose (mg/dL) 169 H (75-99) mg/dL Troponin I (0.000-0.034) ng/mL Total Protein (6.3-8.2) g/dL Assessment and Plan Plan: -Acute non-ST elevation myocardial infarction with stent to RCA and 11/06/2020 and a re-cardiac catheterization which showed patent stent on 11/08/2020 -Pulseless electrical activity on 11/13/2020 was resuscitated successfully back to sinus rhythm. Was mostly bradycardic -Ischemic cardiomyopathy with acute systolic dysfunction EF of around 30-35% with mild acute exacerbation patient will be started on Lasix -Acute renal failure: Prerenal azotemia secondary to congestive heart failure improved with IV Lasix which will be continued -Episodes of bradycardia secondary to myocardial infarction in the RCA territory, resolved now -hyperlipidemia -History of prostate cancer -Possibility of aspiration pneumonia for which patient is on for which patient is on Augmentin -Paroxysmal atrial fibrillation patient. Patient is presently in A. fib on anticoagulation controlled with rate control medications. Continue with anticoagulation. CODE STATUS: DO NOT RESUSCITATE
[2020-11-14 16:48] LABS: Glucose,Whole Blood 182 mg/dL (75-99)
[2020-11-14] MEDS: ONDANSETRON 4 MG/2 ML VIAL IVP PRN (18:26)
[2020-11-14] MEDS: KETOROLAC 15 MG/ML 1 ML VIAL IVP PRN ×2 (18:27→22:47)
[2020-11-14 20:13] LABS: Glucose,Whole Blood 208 mg/dL (75-99)
[2020-11-14] MEDS: ATORVASTATIN 80 MG TAB PO SCH (20:20)
[2020-11-14] MEDS: LACTULOSE 20 GM/30 ML CUP PO SCH (20:21)
[2020-11-14 22:19] VITALS: BP 108/63; PULSE 75; RESP 16; TEMP 98.2
--- NOTE | 2020-11-15 11:15 | P.DS ---
Providers Date of admission: 11/06/20 18:04 Attending physician: Kendal Foster Consults: 11/06/20 18:06 Consult Physician Urgent Consulting Provider: Cardiology Babak Consult Reason/Comments: acute chest pain, nstemi Do you want consulting provider notified?: Yes 11/07/20 12:29 Consult Physician Routine Consulting Provider: Low Hilliard Consult Reason/Comments: Post Interventional patient Do you want consulting provider notified?: Already Contacted 11/08/20 15:36 Consult Physician Routine Consulting Provider: Mynor Varela Consult Reason/Comments: icu management Do you want consulting provider notified?: Yes 11/09/20 09:15 Consult Physician Routine Consulting Provider: Smiley Rivera Consult Reason/Comments: re: AMS, seizure like activity 3/5 Do you want consulting provider notified?: Yes Primary care physician: Donato Chapman Hospital Course: Patient was admitted with acute myocardial infarction patient also has heart failure. Patient was coded multiple times during the hospitalization. Patient was subsequently made DO NOT RESUSCITATE considering her age and comorbidities. Patient had another cardiopulmonary arrest subsequently patient heart rate went down before he had cardiac pulmonary arrest. Please refer to nursing documentation for exact time of what appears to be around 11:28 PM last night. Patient Condition at Discharge: Serious Plan - Discharge Summary Discharge Rx Participant: No New Discharge Prescriptions: New Aspirin 81 mg PO DAILY 90 Days #90 chew Atorvastatin [Lipitor] 80 mg PO HS 90 Days #90 tab Clopidogrel [Plavix] 75 mg PO DAILY 90 Days #90 tab atenoloL [Tenormin] 50 mg PO BID 90 Days #180 tab Continue lisinopriL [Zestril] 5 mg PO BID Apixaban [Eliquis] 2.5 mg PO BID Discontinued atenoloL [Tenormin] 25 mg PO BID Lovastatin [Mevacor] 10 mg PO DAILY No Action Tamsulosin HCl [Flomax] 0.4 mg PO DAILY Solifenacin Succinate [Vesicare] 5 mg PO DAILY Discharge Medication List lisinopriL [Zestril] 5 mg PO BID 12/17/15 [History] Apixaban [Eliquis] 2.5 mg PO BID 11/06/20 [History] Solifenacin Succinate [Vesicare] 5 mg PO DAILY 11/06/20 [History] Tamsulosin HCl [Flomax] 0.4 mg PO DAILY 11/06/20 [History] Aspirin 81 mg PO DAILY 90 Days #90 chew 11/08/20 [Rx] Atorvastatin [Lipitor] 80 mg PO HS 90 Days #90 tab 11/08/20 [Rx] Clopidogrel [Plavix] 75 mg PO DAILY 90 Days #90 tab 11/08/20 [Rx] atenoloL [Tenormin] 50 mg PO BID 90 Days #180 tab 11/08/20 [Rx] Follow up Appointment(s)/Referral(s): Donato Chapman MD [Primary Care Provider] - 1-2 days Fish Cifuentes MD [STAFF PHYSICIAN] - 1 Week Discharge Disposition: - Preliminary Cause of Preliminary Cause of : Acute myocardial infarction and congestive heart failure
== END 2020-11-14 23:28 | disposition expired | DRG 246 ==
LOC: EC 17:31 → 3SCARD 18:04 → 2SICU 11-08 14:17
PROVIDERS: ADMIT Hospitalist; ATTEND Hospitalist
PROC: 027034Z Dilation of Coronary Artery, One Artery with Drug-eluting Intraluminal Device, Percutaneous Approach (ICD-10-PCS; principal; 2020-11-07 10:20)
PROC: 4A023N7 Measurement of Cardiac Sampling and Pressure, Left Heart, Percutaneous Approach (ICD-10-PCS; 2020-11-07 10:20)
PROC: B2111ZZ Fluoroscopy of Multiple Coronary Arteries using Low Osmolar Contrast (ICD-10-PCS; 2020-11-07 10:20)
PROC: 4A023N7 Measurement of Cardiac Sampling and Pressure, Left Heart, Percutaneous Approach (ICD-10-PCS; 2020-11-08)
PROC: B2111ZZ Fluoroscopy of Multiple Coronary Arteries using Low Osmolar Contrast (ICD-10-PCS; 2020-11-08)
PROC: 5A12012 Performance of Cardiac Output, Single, Manual (ICD-10-PCS; 2020-11-08)
PROC: 0D9670Z Drainage of Stomach with Drainage Device, Via Natural or Artificial Opening (ICD-10-PCS; 2020-11-08)
PROC: 3E033XZ Introduction of Vasopressor into Peripheral Vein, Percutaneous Approach (ICD-10-PCS; 2020-11-13)
DX: I21.4 Non-ST elevation (NSTEMI) myocardial infarction (principal); J69.0 Pneumonitis due to inhalation of food and vomit; I50.23 Acute on chronic systolic (congestive) heart failure; T82.855A Stenosis of coronary artery stent, initial encounter; G91.9 Hydrocephalus, unspecified; I95.9 Hypotension, unspecified; D63.8 Anemia in other chronic diseases classified elsewhere; I25.110 Atherosclerotic heart disease of native coronary artery with unstable angina pectoris; I11.0 Hypertensive heart disease with heart failure; R56.9 Unspecified convulsions; I73.9 Peripheral vascular disease, unspecified; J44.9 Chronic obstructive pulmonary disease, unspecified; I46.2 Cardiac arrest due to underlying cardiac condition; I48.0 Paroxysmal atrial fibrillation; Z66 Do not resuscitate; Z20.822 Contact with and (suspected) exposure to COVID-19; I25.5 Ischemic cardiomyopathy; R29.810 Facial weakness; R74.01 Elevation of levels of liver transaminase levels; I08.1 Rheumatic disorders of both mitral and tricuspid valves; E78.5 Hyperlipidemia, unspecified; D53.9 Nutritional anemia, unspecified; M54.9 Dorsalgia, unspecified; R00.1 Bradycardia, unspecified; E66.9 Obesity, unspecified; H91.90 Unspecified hearing loss, unspecified ear; M19.90 Unspecified osteoarthritis, unspecified site; H54.7 Unspecified visual loss; Z68.39 Body mass index [BMI] 39.0-39.9, adult; Z79.01 Long term (current) use of anticoagulants; Z79.899 Other long term (current) drug therapy; Z87.891 Personal history of nicotine dependence; Z85.46 Personal history of malignant neoplasm of prostate; Z85.828 Personal history of other malignant neoplasm of skin; Z96.652 Presence of left artificial knee joint; Z98.42 Cataract extraction status, left eye; Z98.41 Cataract extraction status, right eye; Z71.3 Dietary counseling and surveillance; Z92.3 Personal history of irradiation; Z98.890 Other specified postprocedural states; Y83.1 Surgical operation with implant of artificial internal device as the cause of abnormal reaction of the patient, or of later complication, without mention of misadventure at the time of the procedure
CPT/HCPCS: 36415; 70450; 71045; 74018; 74019; 76937; 80048; 80053; 81001; 82805; 83036; 83605; 83735; 83880; 84100; 84484; 85025; 85379; 85610; 85730; 87635; 93005; 93306; 93458; 93880; 94640; 95816; 96365; 96366; 99291